=== PATIENT | male | born 1945 | race Caucasian/White ===

== ENCOUNTER 2018-05-26 09:34 | Inpatient (IN) | payer OTHER ==
--- NOTE | 2018-05-26 12:16 | R.PREADM ---
SCREENING DATE AND TIME 05/26/2018 10:11 (CDT) ANTICIPATED REHAB ADMISSION DATE 05/28/2018 REFERRING FACILITY [facility] REFERRAL DATE AND TIME 05/26/2018 10:11 (CDT) Previous Rehabilitation(s): No. ACUTE TORCH HEATER/DC ALE Gallardo [phone] REFERRING PHYSICIAN Nato Collins REHAB FACILITY [facility] CLINICAL LIAISON Edie Veloz PHYSICIAN REVIEWER Dr. Harmeet Byers M.D. MR# [id number] NAME LISS BURGESS AD[address]ESS [id number] [facility] [place] [address] DATE OF 1945 AGE 72 SSN# [id number] GENDER male MARITAL STATUS Single (Never ) RACE white ADMIT FROM 02 - [facility] PRE-HOSPITAL LIVING SETTING 01 - Home (private home/apt. board/care, assisted living, alf, transitional living) HOME TYPE AND DETAILS Type of home: single family house # of steps to enter the residence: 0 # of steps within the residence: 0 # of levels in the residence: 1 PRE-HOSPITAL LIVING WITH Family/Relatives FAMILY SUPPORT Yes PRIMARY FAMILY CONTACT NAME Den [place] PRIMARY FAMILY CONTACT PHONE PHONE PRIMARY FAMILY CONTACT ON ADM.? no IS PRIMARY FAMILY CONTACT AUTH. REP.? no 1ST EMERGENCY CONTACT [place] 1ST CONTACT PHONE PHONE 1ST CONTACT ON ADM. no IS 1ST CONTACT AUTH. REP.? no PHONE 2ND CONTACT ON ADM.? no PATIENT EMPLOYMENT STATUS Retired (for age) PATIENT EMPLOYER No Employer PAYOR INFORMATION: 1ST PAYOR NAME [employer] 1ST PAYOR PHONE 1ST PAYOR INJURY/ILLNESS DUE TO ACCIDENT? No ANOTHER GREEN PARTY RESPONSIBLE? No PRIMARY REHAB/ACUTE DIAGNOSIS: left basal ganglia posterior limb REHAB IMPAIRMENT CATEGORY (CAL): 01 Stroke (STR) MEETS 60% rule AFFECTED EXTREMITIES: RLE, and RUE PRIMARY DIAGNOSIS-RELATED SURGERIES: No surgeries related to the primary diagnosis were performed. COMORBID REHAB/ACUTE DIAGNOSES: - N/A hypertension CORONARY ARTERY DISEASE HISTORY OF CABG nicotine abuse COPD INTERVENTIONS: - Hypertension Fluid management Medications VS - COPD 02 sats Medications Nebulizers Oxygen Resp. therapy X-rays RISK FOR COMPLICATIONS: - Hypertension CVA Hypotension [place] TIA - COPD Acute Resp failure Pneumonia Resp. Arrest SUMMARY OF ACUTE HOSPITALIZATION: Pt. is a 72 yo Right-handed white male. On 05/23/2018 Pt. presented to [facility] with sudden onset of right-side weakness. On 05/23/2018 he was admitted to [facility] with diagnosis left basal ganglia posterior castañeda b. His impairment category is Stroke 01 - Right Body (Left Brain) (01.2). Pre-morbidly, Pt. was independent/mod-I in Communication, Social Cognition, Self-Care, Sphincter Cont rol, Transfers Control, and Locomotion; and he had good Sphincter Control. Currently, he has deficits of Communication, Social Cognition, Balance, Self-Care, Endurance, Safety Awareness, Transfers Control, and Locomotion. Pt. is now referred to [facility] for acute in-patient rehabilitation in order to maximize patient's functional independence in activities of daily living, strength, ROM, and mobi lity. Patient has realistic goal of being discharged at assistance level 6-Vi to reside at Home with Fam amena/Relatives. PAST MEDICAL HISTORY COPD CORONARY ARTERY DISEASE HISTORY OF CABG hypertension nicotine abuse MEDICATION ALLERGIES: No Known Drug Allergies (NKDA) ENVIRONMENTAL ALLERGIES: - Substance Allergies None Known - Other Allergies None Known CODE STATUS: Full code WEIGHT/HEIGHT/BMI: WEIGHT 204 lbs HEIGHT 5' 9" BMI 30.1 DIET: - Diet Type Regular - Diet - Solid Texture Mechanical Soft - Diet - Liquid Texture Regular - Tube Feed N/A REVIEW OF SYSTEMS: - Gen Alert and awake Lying in bed No apparent distress Oriented to: person, time, and place - CVS RRR VITAL SIGNS Temperature: 97.8 F SBP/DBP: 184/112 Pulse: 78 Resp: 15 Vital signs stable, afebrile CURRENT SPHINCTER CONTROL: Pre-hospital bladder status: continent # of bladder accidents in the last 7 days prior to screenin Pre-hospital bowel status: continent # of bowel accidents in the last 7 days prior to screenin Last Bowel Movement Date: 05/26/2018 DETAILED CURRENT FUNCTIONAL STATUS: - Bladder accident frequency: Ind - No accidents in the past 7 days - Bowel accident frequency: Ind - No accidents in the past 7 days - Walking score based on distance walked: 0(N/A) FUNCTIONAL STATUS: - Self-Care A. Eating Ind Carli B. Grooming Ind Carli C. Bathing Ind modA D. Dressing - Upper Ind Carli E. Dressing - Lower Ind modA F. Toileting Ind modA - Sphincter Control G: Bladder control Ind Ind H: Bowel control Ind Ind - Transfers Control I. Bed/Chair/Wheelchair Ind modA J. Toilet Ind modA K. Tub/Shower Ind modA - Locomotion L. Walk/Wheelchair (B) Ind Dep - Communication N. Comprehension (B) Ind Carli O. Expression (B) Ind sup - Social Cognition P. Social Interaction Ind sup Q. Problem Solving Ind sup R. Memory Ind Carli - Endurance Poor - Balance Poor - Safety Awareness Poor CURRENT FUNC. DEFICITS: Communication, Social Cognition, Balance, Self-Care, Endurance, Safety Awareness, Transfers Control, and Locomotion THERAPY NOTES FROM ACUTE CARE: Attached. SPECIAL NEEDS: - Safety Concerns Skin breakdown precautions needed due to skin breakdown risk PRECAUTIONS: - Weight Bearing Precaution WBAT right LE PATIENT NEEDS ACTIVE AND ONGOING THERAPEUTIC INTERVENTION OF MULTIPLE THERAPY DISCIPLINES, INCLUDING: - Occupational Therapy Evaluate and Treat. Cognitive Retraining. Visual Perceptual Training. - Speech Therapy Memory Strategies. Expressive Language Skills. Speech Intelligibility Training. Cognitive Training. R eceptive Language Skills. - Physical Therapy Evaluate and Treat. PATIENT NEEDS CLOSE MEDICAL SUPERVISION BY A REHABILITATION PHYSICIAN FOR: Bowel and Bladder Management Coordination of Treatment Team Medical and Co-Morbidity Management PATIENT REQUIRES 24X7 REHAB NURSING FOR MEDICAL AND FUNCTIONAL MGT. OF THE FOLLOWING DEFICITS: ADL's Ambulation Bowel and Bladder Management Cognition Communication Disease Management Medication Management Patient/Family Education Providing Safe Environment Transfers PATIENT REQUIRES INTENSIVE, COORDINATED INTERDISCIPLINARY APPROACH TO REHAB: Arranging Home Equipment/Services Discharge Planning Family Intervention/Training Cabin Worker/Case Management PATIENT REHAB POTENTIAL: Expected level of measurable improvement will be of a practical value to patient's functional capacit y or adaptations to impairments Has a viable Discharge Plan Medically appropriate; condition is sufficiently stable to participate in intensive rehab program Patient is able and expected to receive 3 hours of individualized therapy daily on at least 5 of ever y 7 days Patient's prognosis for significant practical improvement within a reasonable period of time appears Good DISCHARGE PLAN: - Estimated Length of Stay (days) 17. - Consensus on plan Discharge plan has been discussed with primary caregiver. Patient/Family is in agreement with the thea n. Primary caregiver is in agreement with the plan. - Patient/Family Goals Return home with assistance. - Planned Living Setting Upon Discharge Home, to live with Family/Relatives. RECOMMENDED CARE LEVEL: IRF RECOMMENDATION DETAILS: Recommended Admission to Comprehensive Rehabilitation Program to Increase Functional [place] SCREENER'S COMPLETENESS CONFIRMATION: - Screening Confirmation The patient data collection on this preadmission screening form is finished PHYSICIANS REVIEW AND ADMISSION DETERMINATION Admit - Based on my review of the Pre-Admission Screening results, in my medical judgment and experie nce, I concur with the findings and recommend admission to [facility], as this patient requires an IRF level of care. SIGNATURE PANEL: Clinical Liaison - [electronically] signed by Ayanna Perez on 05/26/2018 at 10:40 (CDT) Clinical Liaison - [electronically] signed by Edie Veloz on 05/26/2018 at 10:54 (CDT) Physician Reviewer - [electronically] signed by Dr. Harmeet Byers M.D. on 05/26/2018 at 12:16 (CDT )
[2018-05-26] MEDS: HYDROCODONE/APAP 5/325 MG TAB PO PRN ×2 (17:33→21:59)
[2018-05-26] MEDS ORDERED: ATORVASTATIN 40 MG TAB PO SCH (21:00)
[2018-05-26 23:59] LABS: Urine Appearance CLEAR; Urine Bilirubin NEGATIVE (NEG); Urine Blood NEGATIVE (NEG); Urine Color YELLOW; Urine Glucose NEGATIVE (NEG); Urine Protein NEGATIVE (NEG); Urine Specific Gravity <=1.005 (1.005-1.030); Urine Urobilinogen 0.2 mg/dL (0.2-1.0); Urine pH 7.5 (5.0-7.0)
[2018-05-27 01:14] LABS: Urine Bacteria <20 /HPF (NONE SEEN); Urine Culture Reflex Order NOT NEEDED; Urine RBC NONE SEEN /HPF (NONE SEEN)
[2018-05-27] MEDS: HYDROCODONE/APAP 5/325 MG TAB PO PRN ×4 (06:28→21:56)
[2018-05-27] MEDS: ENOXAPARIN 30 MG/0.3 ML SQ SCH (06:29)
[2018-05-27] MEDS: LEVOTHYROXINE SOD 0.112 MG TAB PO SCH (06:29)
[2018-05-27] MEDS ORDERED: LEVOTHYROXINE SOD 0.112 MG TAB PO SCH (06:30)
[2018-05-27 06:35] LABS: Absolute Lymphocytes (CBC) 0.7 K/uL (0.7-4.9); Absolute Monocytes 0.7 K/uL (0.1-1.3); Basophils % 0.9 % (0-1.3); Eosinophils % 2.3 % (0-4.4); Hematocrit 44.6 % (39.6-49.0); Lymphocytes % 10.2 % (15.3-44.8); MCH 34.2 pg (27.0-35.0); MCV 98.2 fL (80-100); MPV 8.4 fL (7.6-11.3); Monocytes % 10.6 % (3.3-12.3); RBC Red Blood Cell Count 4.54 M/uL (4.33-5.43)
[2018-05-27 07:03] LABS: Albumin 3.2 g/dL (3.4-5.0); Magnesium 2.3 mg/dL (1.8-2.4); Potassium 4.6 mmol/L (3.5-5.1); Prealbumin 18.8 mg/dL (20-40)
[2018-05-27] MEDS ORDERED: ASPIRIN 325 MG TAB PO SCH (08:00)
[2018-05-27] MEDS: AMLODIPINE 10 MG TAB PO SCH (08:15)
[2018-05-27] MEDS: CLOPIDOGREL 75 MG TABLET PO SCH (08:16)
[2018-05-27] MEDS: ASPIRIN EC 81 MG TAB PO SCH (08:16)
[2018-05-27] MEDS: NICOTINE 14 MG/PAT TD SCH (12:53)
--- NOTE | 2018-05-27 14:12 | FAST ---
SHIFT START DATE/TIME: 05/27/2018 07:00 (CDT) SHIFT END DATE/TIME: 05/27/2018 19:00 (CDT) NAME LISS BURGESS DATE OF : 1945 DATE OF ADMISSION: 05/26/2018 16:00 (CDT) PHONE: AGE: 72 N# [id number] GENDER: Male ENCOUNTER PHYSICIAN: Dr. Harmeet Byers M.D. 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 EATING: EATING - STEP 1: Does the patient require assistance when eating? Yes. EATING - STEP 2: Does the patient require the assistance of a helper? Yes. EATING - STEP 3: Does the patient perform half or more of the eating tasks? No. EATING - STEP 4: Does the patient require total assistance to eat, such as the helper holding the utensil and bringing all food and liquids to the mouth? Yes. EATING - SCORE: 1-DEP GROOMING: Activity did not occur on this shift GROOMING - SCORE: 0-UNK BATHING: Activity did not occur on this shift BATHING - SCORE: 0-UNK DRESSING - UPPER BODY: Activity did not occur on this shift ARTICLES SCORE Total number of steps: 0 DRESSING - UPPER BODY - SCORE: 0-UNK DRESSING - LOWER BODY: Activity did not occur on this shift ARTICLES SCORE Total number of steps: 0 DRESSING - LOWER BODY - SCORE: 0-UNK TOILETING: TOILETING - STEP 1: Does the patient require assistance with toileting? Yes. TOILETING - STEP 2: Does the patient require the assistance of a helper? Yes. TOILETING - STEP 3: How much assistance does the patient require from the helper? Hands-on assistance from the helper TOILETING - STEP 4: Of the 3 tasks: 1) Adjusting clothing prior to use, 2) Cleansing of perineal area, 3) Adjusting clot jany after use; How many tasks does the patient perform WITHOUT assistance of the helper? No tasks; h elper performs all three tasks TOILETING - SCORE: 1-DEP BLADDER MANAGEMENT: BLADDER MANAGEMENT - STEP 1: Does the patient control the bladder completely and intentionally without equipment or devices or med ications, and is always continent? No. BLADDER MANAGEMENT - STEP 2: Does the patient require the assistance of a helper? Yes. BLADDER MANAGEMENT - STEP 3: How much assistance does the patient require from the helper? Patient requires contact assistance fro m the helper BLADDER MANAGEMENT - STEP 4: How much contact assistance does the patient require from the helper? Patient requires maximal assist ance, and only performs 25% to 49% of bladder management tasks BLADDER MANAGEMENT - SCORE: 2-MAX BLADDER MANAGEMENT - FREQUENCY OF ACCIDENTS: BLADDER MANAGEMENT(FA) - STEP 1: How many accidents has the patient had during the current shift? 0 BOWEL MANAGEMENT: Activity did not occur on this shift BOWEL MANAGEMENT - SCORE: 7-IND BOWEL MANAGEMENT - FREQUENCY OF ACCIDENTS: BOWEL MANAGEMENT(FA) - STEP 1: How many accidents has the patient had during the current shift? 0 TRANSFERS: BED, CHAIR, WHEELCHAIR: TRANSFERS: BED, CHAIR, WHEELCHAIR - STEP 1: Does the patient require assistance with bed, chair, or wheelchair transfers? Yes. TRANSFERS: BED, CHAIR, WHEELCHAIR - STEP 2: Does the patient require the assistance of a helper? Yes. TRANSFERS: BED, CHAIR, WHEELCHAIR - STEP 3: How much assistance does the patient require from the helper? Steadying/guiding assistance TRANSFERS: BED, CHAIR, WHEELCHAIR - SCORE: 4-MIN TRANSFERS: TOILET: Activity did not occur on this shift TRANSFERS: TOILET - SCORE: 0-UNK TRANSFERS: SHOWER: Activity did not occur on this shift TRANSFERS: SHOWER - SCORE: 0-UNK TRANSFERS: TUB: Activity did not occur on this shift TRANSFERS: TUB - SCORE: 0-UNK LOCOMOTION: WALK: Activity did not occur on this shift LOCOMOTION: WALK - SCORE: 0-UNK LOCOMOTION: WHEELCHAIR: Activity did not occur on this shift LOCOMOTION: WHEELCHAIR - SCORE: 0-UNK COMPREHENSION: COMPREHENSION: TYPE: Both COMPREHENSION - STEP 1: Does the patient require help to understand complex and abstract ideas (such as current events, finan alonso, discharge planning, medical issues, relationships, etc)? Yes. COMPREHENSION - STEP 2: Does the patient require help to understand questions or statements about basic needs or ideas (such as hunger, thirst, sleep, safety, daily schedule, room location, or discomfort) half or more of the t cj? No. COMPREHENSION - STEP 3: How often does the patient need help to understand directions and conversation about basic needs? 10% - 24% of the time COMPREHENSION - SCORE: 4-MIN EXPRESSION EXPRESSION: TYPE: Both EXPRESSION - STEP 1: Does the patient require help expressing complex and abstract ideas (such as current events, finances , discharge planning, medical issues, relationships, etc)? Yes. EXPRESSION - STEP 2: Does the patient require help to express basic necessities or ideas (such as hunger, thirst, sleep, s afety, daily schedule, room location, or discomfort) half or more of the time? No. EXPRESSION - STEP 3: How often does the patient need help to express directions and conversation about basic needs? 10-24% of the time EXPRESSION - SCORE: 4-MIN SOCIAL INTERACTION: SOCIAL INTERACTION - STEP 1: Does the patient require a helper to interact with others in social and therapeutic situations? No. SOCIAL INTERACTION - STEP 2: Does the patient need extra time in social situations, OR does s/he interact with staff, other patien ts, and family members ONLY in structured environments, OR does s/he require medication for social in teraction? Yes, patient needs extra time SOCIAL INTERACTION - SCORE: 6-KAMERON PROBLEM SOLVING: PROBLEM SOLVING - STEP 1: Does the patient need help to solve complex problems such as managing a checking account or confronti ng interpersonal problems? Yes. PROBLEM SOLVING - STEP 2: Does the patient solve basic routine problems half or more of the time? Yes. PROBLEM SOLVING - STEP 3: How often does the patient need help to solve basic routine problems? 10%-24% of the time PROBLEM SOLVING - SCORE: 4-MIN MEMORY: MEMORY - STEP 1: Does the patient need help to remember frequently encountered people, daily routines, and executing r equests? No. MEMORY - STEP 2: Does the patient have slight difficulty recognizing frequently encountered people, daily routines, or executing requests without the need for repetition or using self-initiated or environmental cues to remember? Yes. MEMORY - SCORE: 6-KAMERON SIGNATURE PANEL: The following modified sections: Eating - Score, Grooming - Score, Bathing - Score, Dressing - Upper Body - Score, Dressing - Lower Body - Score, Toileting - Score, Bladder Management - Score, Bowel Man agement - Score, Transfers: Bed, Chair, Wheelchair - Score, Transfers: Toilet - Score, Transfers: Qian wer - Score, Transfers: Tub - Score, Locomotion: Walk - Score, Locomotion: Wheelchair - Score, Expres garret - Score, Social Interaction - Score, Problem Solving - Score, Memory - Score, Comprehension - Sc ore were [electronically] signed by Kisha Meyer C.N.A. on Sat May 27 2018 14:11:33 T-0500 (Centra l Daylight Time)
--- NOTE | 2018-05-27 18:26 | PAPE ---
PATIENT: [facility] MR# [id number] REFERRING DOCTOR Nato Collins EVALUATION DATE AND TIME 05/27/2018 18:24 (CDT) NAME LISS BURGESS DATE OF 1945 AGE 72 PHONE SSN# [id number] GENDER male EVALUATING PHYSICIAN Dr. Harmeet Byers M.D. ADMISSION DIAGNOSIS: left basal ganglia posterior limb SECONDARY/COMORBID DIAGNOSES TIERED: - N/A hypertension CORONARY ARTERY DISEASE HISTORY OF CABG nicotine abuse COPD POST-ADMISSION FUNCTIONAL/MEDICAL STATUS: - Bladder Same accident frequency: Ind - No accidents in the past 7 days - Bowel Same accident frequency: Ind - No accidents in the past 7 days - Walking Same score based on distance walked: 0(N/A) STATUS CHANGE EVALUATION: No change in Functional or Medical Status is identified compared with Pre-Admission screening. PATIENT NEEDS CLOSE MEDICAL SUPERVISION BY A REHABILITATION PHYSICIAN FOR: Bowel and Bladder Management Coordination of Treatment Team Medical and Co-Morbidity Management PATIENT REQUIRES 24X7 REHAB NURSING FOR MEDICAL AND FUNCTIONAL MGT. OF THE FOLLOWING DEFICITS: ADL's Ambulation Bowel and Bladder Management Cognition Communication Disease Management Medication Management Patient/Family Education Providing Safe Environment Transfers PATIENT REQUIRES INTENSIVE, COORDINATED INTERDISCIPLINARY APPROACH TO REHAB: Arranging Home Equipment/Services Discharge Planning Family Intervention/Training Turfgrass Technician/Case Management LIST OF IDENTIFIED AND POTENTIAL PROBLEMS: Alteration in leisure activities Bladder, Incontinence Blood Pressure, Hypertension/hypotension Issues Bowel, Incontinence Infection, Actual or Potential Mobility Impaired Pain, Alteration in Comfort Self Care Deficit Skin Integrity, Actual or Potential Urinary Tract Infection (UTI), Actual or Potential RISK FOR COMPLICATIONS - Hypertension CVA. Hypotension. WI. TIA. - COPD Acute Resp failure. Pneumonia. Resp. Arrest. INTERVENTIONS - Hypertension - COPD 02 sats. Medications. Nebulizers. Oxygen. Resp. therapy. X-rays. PATIENT COULD BE AT RISK FOR COMPLICATIONS FROM ADVERSE MEDICAL CONDITIONS DUE TO HIS/HER COMORBIDITI ES AND THE RIGORS OF THE INTENSIVE REHABILLITATION PROGRAM. METHODS OR INTERVENTIONS TO AVOID COMPLIC ATIONS INCLUDE: - Bleeding Stroke patients assessed for lethargy or change in status. - Infection Clinical staff to assess and manage the signs and symptoms of infection including fever, redness, war mth, etc. - Urinary Tract Infection - Aspiration Clinical staff will assess and manage coughing, drooling, congestion. - Falls Patient will be evaluated for Fall Precautions and will be placed on Fall Precautions as indicated pe r protocol. - Skin Breakdown Nursing will assess skin daily using assessment tool and will place on Skin Breakdown Precautions as indicated per protocol. - Pain Clinical staff may employ non-medication methods such as massage, distraction, decrease stimulus, etc . as needed. Clinical staff will assess patient's pain level every shift per protocol to assess and e nsure pain management effectiveness. Medications will be given and the pain level re-assessed. PRELIMINARY PLAN OF CARE: - Physical Therapy Patient needs Physical Therapy for a daily minimum of 1.5 hours at least 5 out of 7 days, to improve: Mobility, Strengthening, Transfers, Stretching, ROM, Endurance, Ability to manage stairs, Gait, and Balance. - Speech Therapy Patient needs Speech Therapy for a daily minimum of 0.5 hours at least 5 out of 7 days, to improve: S wallowing, Cognition, Language Skills, and Compensatory Strategies. - Rehabilitation Nursing Patient requires 24x7 Rehabilitation Nursing for: Pain Issues, Identifying and preventing risk factor s, Monitoring and reporting current medical conditions, Assisting with ambulation and transfer, Finn ting with all ADL-s, Teaching patients about disease process and medications, Family teaching, Provid ing safe environment, Bowel and Bladder Issues, Skin Integrity, and Medication Management. Patient needs Turfgrass Technician and/or Case Management for: Discharge Planning, Arranging Home Equipmen t or Services, and Family Interventions. - Dietary and Nutrition Services Patient needs Dietary and Nutrition Services for: Adequate Nutrition, Nutritional Supplements, and Nu tritional Education. - Occupational Therapy Patient needs Occupational Therapy for a daily minimum of 1.5 hours at least 5 out of 7 days, to impr ove Activities of Daily Living, including: Eating, Grooming, Bathing, Dressing, Toileting, Toilet Tra nsfers, Community Reintegration, Higher functional activities, Adaptive Equipment, Splinting, Househo ld Tasks, and Other activities as determined. POTENTIAL FUNCTIONAL GOALS FOR PATIENT TO ACHIEVE BY DISCHARGE: - Safety Precaution Patient will remain free from falls or injury at time of discharge. - Bed Mobility Patient will perform bed mobility at 4-Carli level of assistance. - Transfers Patient will complete transfers from bed to chair at 4-Carli level of assistance. - Mobility Patient will ambulate 150 ft with 4-Carli level of assistance with RW. PATIENT REHAB POTENTIAL Expected level of measurable improvement will be of a practical value to patient's functional capacit y or adaptations to impairments Has a viable Discharge Plan Medically appropriate; condition is sufficiently stable to participate in intensive rehab program Patient is able and expected to receive 3 hours of individualized therapy daily on at least 5 of ever y 7 days Patient's prognosis for significant practical improvement within a reasonable period of time appears Good DISCHARGE PLAN: - Estimated Length of Stay (days) 17. - Consensus on plan Discharge plan has been discussed with primary caregiver. Patient/Family is in agreement with the thea n. Primary caregiver is in agreement with the plan. - Patient/Family Goals Return home with assistance. - Planned Living Setting Upon Discharge Home, to live with Family/Relatives. CONCLUSION ON REHABILITATION NECESSITY: I have evaluated patient's pre-admission functional status and, comparing it to the patient's post-ad mission functional status now, I conclude that the pre-admission assessment was accurate. Patient's c ondition on admission supports the medical necessity of admission to IRF. It is safe to proceed with patient's therapy program. SIGNATURE PANEL: (CDT)
--- NOTE | 2018-05-27 18:26 | R.HP ---
FACILITY: [facility] ENCOUNTER DATE AND TIME: 05/27/2018 18:17 (CDT) MR#: [id number] NAME LISS BURGESS ADDRESS: [address] [place] [address]: [place] [id number] PHONE: DATE OF : 1945 AGE: 72 SSN# [id number] GENDER: Male DEXTERITY Right-handed MARITAL STATUS Single (Never ) RACE White PRE-HOSPITAL LIVING SETTING 01 - Home (private home/apt. board/care, assisted living, long-term, transitional living) PRE-HOSPITAL LIVING WITH Family/Relatives ENCOUNTER PHYSICIAN: Dr. Harmeet Byers M.D. REFERRING DOCTOR: Nato Collins DATE OF ADMISSION: 05/26/2018 16:00 (CDT) REFERRING FACILITY [facility] HOME TYPE AND DETAILS: Type of home: single family house # of steps to enter the residence: 0 # of steps within the residence: 0 # of levels in the residence: 1 ADMISSION DIAGNOSIS: left basal ganglia posterior limb PRIMARY DIAGNOSIS-RELATED SURGERIES: No surgeries related to the primary diagnosis were performed. SECONDARY/COMORBID DIAGNOSES (TIERED): - N/A hypertension CORONARY ARTERY DISEASE HISTORY OF CABG nicotine abuse COPD HISTORY OF PRESENT ILLNESS (HPI): Pt. is a 72 yo Right-handed white male. On 05/23/2018 Pt. presented to [facility] with sudden onset of right-side weakness. On 05/23/2018 he was admitted to [facility] with diagnosis left basal ganglia posterior castañeda b. His impairment category is Stroke 01 - Right Body (Left Brain) (01.2). Pre-morbidly, Pt. was independent/mod-I in Communication, Social Cognition, Self-Care, Sphincter Cont rol, Transfers Control, and Locomotion; and he had good Sphincter Control. Currently, he has deficits of Communication, Social Cognition, Balance, Self-Care, Endurance, Safety Awareness, Transfers Control, and Locomotion. Pt. is now referred to [facility] for acute in-patient rehabilitation in order to maximize patient's functional independence in activities of daily living, strength, ROM, and mobi lity. Patient has realistic goal of being discharged at assistance level 6-Vi to reside at Home with Fam amena/Relatives. MEDICATION ALLERGIES: No Known Drug Allergies (NKDA) ENVIRONMENTAL ALLERGIES: - Substance Allergies None Known - Other Allergies None Known PAST MEDICAL HISTORY: COPD CORONARY ARTERY DISEASE HISTORY OF CABG hypertension nicotine abuse FAMILY HISTORY: Family history is not contributory. SOCIAL HISTORY: - Home Living Family/Relatives REVIEW OF SYSTEMS: - Gen No Chills Fatigue No Fever - Eyes No Double Vision No itchiness - ENMT No Difficulty Swallowing - CVS No Chest Discomfort No Chest Pain Fatigue No Weight Gain - Resp No Cough No Shortness of Breath - GI Continent No Abdominal Pain No Constipation No Diarrhea - Continent No Kidney Pain No Painful Urination No Urinary Urgency - MSK No Joint Pain No Muscle Cramps Stiffness - Skin No Itching No Rash No Suspicious Lesions - Neuro Coordination Difficulty No Memory Loss No Seizures Weakness - Psych No Anxiety No Depression No HIV Exposure No Persistent Infections No Seasonal Allergies - Endo No Cold/Heat Intolerance No Excessive Hunger No Excessive Thirst No Excessive Urination PHYSICAL EXAM - Gen Alert and awake Lying in bed No apparent distress Oriented to: person, time, and place - Skin No breakdowns Right facial numbness and mild weakness with slurred speech. Cleared for thin and thick liquids - Eyes No abnormalities - ENMT No abnormalities - Neck No abnormalities - CVS RRR - Chest No abnormalities - Resp Clear to auscultation - Abd + bowel sounds - GI Soft Deferred - No abnormalities - Ext No significant edema - MSK 3-4/5 weakness in right upper and 4+/5 in right lower extremity - Neuro 3-4/5 weakness in the right upper and lower extremities. Decrease to touch and temperature in right u pper and lower extremities. - Psych No abnormalities VITAL SIGNS Temperature: 97.8 F SBP/DBP: 143/83 Pulse: 82 Resp: 16 NURSING: - Shower allowing shower - Bladder care per protocol - Skin care per protocol PRECAUTIONS: - Weight Bearing Precaution WBAT right LE ACTIVITIES OOB only with supervision FUNCTIONAL STATUS: - Self-Care A. Eating Ind Carli B. Grooming Ind Carli C. Bathing Ind modA D. Dressing - Upper Ind Carli E. Dressing - Lower Ind modA F. Toileting Ind modA - Sphincter Control G: Bladder control Ind Ind H: Bowel control Ind Ind - Transfers Control I. Bed/Chair/Wheelchair Ind modA J. Toilet Ind modA K. Tub/Shower Ind modA - Locomotion L. Walk/Wheelchair (B) Ind Dep - Communication N. Comprehension (B) Ind Carli O. Expression (B) Ind sup - Social Cognition P. Social Interaction Ind sup Q. Problem Solving Ind sup R. Memory Ind Carli - Endurance Poor - Balance Poor - Safety Awareness Poor CURRENT FUNC. DEFICITS: Communication, Social Cognition, Balance, Self-Care, Endurance, Safety Awareness, Transfers Control, and Locomotion ASSESSMENT: Pt. is a 72 yo Right-handed white male.On 05/23/2018 Pt. presented to [facility] with sudde n onset of right-side weakness.On 05/23/2018 he was admitted to [facility] with diagnosis l eft basal ganglia posterior limb.His impairment category is Stroke 01 - Right Body (Left Brain) (01. 2).Pre-morbidly, Pt. was independent/mod-I in Communication, Social Cognition, Self-Care, Sphincter C ontrol, Transfers Control, and Locomotion; and he had good Sphincter Control.Currently, he has defici ts of Communication, Social Cognition, Balance, Self-Care, Endurance, Safety Awareness, Transfers Con trol, and Locomotion.Pt. is now referred to [facility] for acute in-patient re habilitation in order to maximize patient's functional independence in activities of daily living, st rength, ROM, and mobility.- Rehab Goal Patient has realistic goal of being discharged at assistance level 6-Vi to reside at Home with Fam amena/Relatives. REHAB PLAN: for Dementia, TBI, Stroke, or others - Physical Therapy Gait dysfunction - to improve, our physical therapists will perform initial evaluation of pt's status upon admission and devise an individualized program for Gait Training, and Wheel Chair mobility Inability to transfer - to improve, our physical therapists will perform initial evaluation of pt's s tatus upon admission and devise an individualized program for Bed mobility Need for home safety evaluation - to improve, our physical therapists will perform initial evaluation of pt's status upon admission and devise an individualized program for Home Evaluation Need in caregiver upon discharge - to improve, our physical therapists will perform initial evaluatio n of pt's status upon admission and devise an individualized program for Caregiver Training New precaution - to improve, our physical therapists will perform initial evaluation of pt's status u leobardo admission and devise an individualized program for Patient precaution education Edema - to improve, our physical therapists will perform initial evaluation of pt's status upon admi ssion and devise an individualized program for Elevation Training, and Lymphedema Therapy Poor balance - to improve, our physical therapists will perform initial evaluation of pt's status upo n admission and devise an individualized program for Balance Training Poor endurance - to improve, our physical therapists will perform initial evaluation of pt's status u leobardo admission and devise an individualized program for Endurance Training Weakness - to improve, our physical therapists will perform initial evaluation of pt's status upon ad mission and devise an individualized program for Aquatic Therapy, Neuromuscular Reeducation, and Stre ngthening Achieving independence - to improve, our physical therapists will perform initial evaluation of pt's status upon admission and devise an individualized program for Community Reintegration Activities - Occupational Therapy ADL deficits - to improve, our occupation therapists will perform initial evaluation of pt's status u leobardo admission and devise an individualized program for Bathing, Bed mobility, Community Reintegration , Cooking, Dressing, Eating, Fine Motor Skills, Grooming, Homemaking, Kitchen Mobility, Laundry, Alisha ent Education, Safety Awareness, Splinting - Positioning, Transfers(Toilet, Tub, Shower), and Wheel C hair Management Cognitive deficits - to improve, our occupation therapists will perform initial evaluation of pt's st atus upon admission and devise an individualized program for Cognition - orientation Need for post acute care nurse - to improve, our occupation therapists will perform initial evaluation of pt's s tatus upon admission and devise an individualized program for Caregiver Training Weakness - to improve, our occupation therapists will perform initial evaluation of pt's status upon admission and devise an individualized program for Aquatic Therapy, Balance, Endurance, UE ROM, and U E strengthening MEDICAL PLAN: - Diet Type Start Regular - Diet - Liquid Texture Start Regular - Tube Feed Start N/A - Bladder care per protocol - Weight Bearing Precaution WBAT right LE - Skin care per protocol - Diet - Solid Texture Start Regular Start Mechanical Soft - Shower shower DISCHARGE PLAN: - Estimated Length of Stay (days) 17. - Consensus on plan Discharge plan has been discussed with primary caregiver. Patient/Family is in agreement with the thea n. Primary caregiver is in agreement with the plan. - Patient/Family Goals Return home with assistance. - Planned Living Setting Upon Discharge Home, to live with Family/Relatives. SIGNATURE PANEL: (CDT)
[2018-05-27] MEDS: ENSURE HIGH PROTEIN 237 ML CAN PO SCH (20:47)
[2018-05-27] MEDS: ATORVASTATIN 40 MG TAB PO SCH (20:47)
[2018-05-27] MEDS: DOCUSATE NA/SENNA CONC 1 TAB PO SCH (20:47)
--- NOTE | 2018-05-28 02:30 | FAST ---
SHIFT START DATE/TIME: 05/27/2018 19:00 (CDT) SHIFT END DATE/TIME: 05/28/2018 07:00 (CDT) NAME LISS BURGESS DATE OF : 1945 DATE OF ADMISSION: 05/26/2018 16:00 (CDT) PHONE: AGE: 72 N# [id number] GENDER: Male ENCOUNTER PHYSICIAN: Dr. Harmeet Byers M.D. 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 EATING: Activity did not occur on this shift EATING - SCORE: 0-UNK GROOMING: Activity did not occur on this shift GROOMING - SCORE: 0-UNK BATHING: Activity did not occur on this shift BATHING - SCORE: 0-UNK DRESSING - UPPER BODY: Patient is not dressing in public clothing ARTICLES SCORE Total number of steps: 0 DRESSING - UPPER BODY - SCORE: 0-UNK DRESSING - LOWER BODY: Patient is not dressing in public clothing ARTICLES SCORE Total number of steps: 0 DRESSING - LOWER BODY - SCORE: 0-UNK TOILETING: TOILETING - STEP 1: Does the patient require assistance with toileting? Yes. TOILETING - STEP 2: Does the patient require the assistance of a helper? Yes. TOILETING - STEP 3: How much assistance does the patient require from the helper? Hands-on assistance from the helper TOILETING - STEP 4: Of the 3 tasks: 1) Adjusting clothing prior to use, 2) Cleansing of perineal area, 3) Adjusting clot jany after use; How many tasks does the patient perform WITHOUT assistance of the helper? No tasks; h elper performs all three tasks TOILETING - SCORE: 1-DEP BLADDER MANAGEMENT: [place] removes incontinent device (Depends, pull ups, etc.); cleans the patient after accident / inco ntinent episode; and, applies new incontinent device. BLADDER MANAGEMENT - SCORE: 1-DEP BOWEL MANAGEMENT: Activity did not occur on this shift BOWEL MANAGEMENT - SCORE: 7-IND TRANSFERS: BED, CHAIR, WHEELCHAIR: Activity did not occur on this shift TRANSFERS: BED, CHAIR, WHEELCHAIR - SCORE: 0-UNK TRANSFERS: TOILET: Activity did not occur on this shift TRANSFERS: TOILET - SCORE: 0-UNK TRANSFERS: SHOWER: Activity did not occur on this shift TRANSFERS: SHOWER - SCORE: 0-UNK TRANSFERS: TUB: Activity did not occur on this shift TRANSFERS: TUB - SCORE: 0-UNK LOCOMOTION: WALK: Activity did not occur on this shift LOCOMOTION: WALK - SCORE: 0-UNK LOCOMOTION: WHEELCHAIR: Activity did not occur on this shift LOCOMOTION: WHEELCHAIR - SCORE: 0-UNK COMPREHENSION: COMPREHENSION: TYPE: Both COMPREHENSION - STEP 1: Does the patient require help to understand complex and abstract ideas (such as current events, finan alonso, discharge planning, medical issues, relationships, etc)? No. COMPREHENSION - STEP 2: Does the patient need extra time, require an assistive device (such as glasses for visual comprehensi on or a hearing aid for auditory comprehension) or does s/he have mild difficulty understanding compl ex and abstract information? Yes. COMPREHENSION - SCORE: 6-KAMERON EXPRESSION EXPRESSION: TYPE: Both EXPRESSION - STEP 1: Does the patient require help expressing complex and abstract ideas (such as current events, finances , discharge planning, medical issues, relationships, etc)? No. EXPRESSION - STEP 2: Does the patient need extra time, require an assistive device (such as augmentive communication syste m or a communication board), OR does s/he have mild difficulty expressing complex and abstract ideas (including mild dysarthria or mild word-find problems)? Yes. EXPRESSION - SCORE: 6-KAMERON SOCIAL INTERACTION: SOCIAL INTERACTION - STEP 1: Does the patient require a helper to interact with others in social and therapeutic situations? No. SOCIAL INTERACTION - STEP 2: Does the patient need extra time in social situations, OR does s/he interact with staff, other patien ts, and family members ONLY in structured environments, OR does s/he require medication for social in teraction? Yes, patient needs extra time SOCIAL INTERACTION - SCORE: 6-KAMERON PROBLEM SOLVING: PROBLEM SOLVING - STEP 1: Does the patient need help to solve complex problems such as managing a checking account or confronti ng interpersonal problems? No. PROBLEM SOLVING - STEP 2: Does the patient require extra time to make decisions or solve problems, OR does s/he have slight dif ficulty reading, initiating, or self-correcting in unfamiliar situations? Yes, patient needs extra ti me. PROBLEM SOLVING - SCORE: 6-KAMERON MEMORY: MEMORY - STEP 1: Does the patient need help to remember frequently encountered people, daily routines, and executing r equests? No. MEMORY - STEP 2: Does the patient have slight difficulty recognizing frequently encountered people, daily routines, or executing requests without the need for repetition or using self-initiated or environmental cues to remember? Yes. MEMORY - SCORE: 6-KAMERON SIGNATURE PANEL: The following modified sections: Eating - Score, Grooming - Score, Dressing - Upper Body - Score, Kash ssing - Lower Body - Score, Toileting - Score, Bladder Management - Score, Bowel Management - Score, Transfers: Bed, Chair, Wheelchair - Score, Transfers: Toilet - Score, Transfers: Shower - Score, Agosto sfers: Tub - Score, Locomotion: Walk - Score, Locomotion: Wheelchair - Score, Comprehension - Score, Expression - Score, Social Interaction - Score, Problem Solving - Score, Memory - Score were [electro nically] signed by Susie Pate CNA on Sun May 28 2018 02:15:50 GMT-0500 (Central Daylight Time)
[2018-05-28] MEDS: LEVOTHYROXINE SOD 0.112 MG TAB PO SCH (05:08)
[2018-05-28] MEDS: ENOXAPARIN 30 MG/0.3 ML SQ SCH (09:12)
[2018-05-28] MEDS: CLOPIDOGREL 75 MG TABLET PO SCH (09:12)
[2018-05-28] MEDS: ASPIRIN EC 81 MG TAB PO SCH (09:12)
[2018-05-28] MEDS: HYDROCODONE/APAP 5/325 MG TAB PO PRN ×3 (09:13→21:19)
[2018-05-28] MEDS: AMLODIPINE 10 MG TAB PO SCH (09:13)
[2018-05-28] MEDS: ENSURE HIGH PROTEIN 237 ML CAN PO SCH ×2 (09:14→20:00)
[2018-05-28] MEDS: NICOTINE 14 MG/PAT TD SCH (10:20)
[2018-05-28] MEDS ORDERED: BISACODYL 10 MG RECTAL SUPP PR PRN (12:30)
--- NOTE | 2018-05-28 13:49 | FAST ---
SHIFT START DATE/TIME: 05/28/2018 07:00 (CDT) SHIFT END DATE/TIME: 05/28/2018 19:00 (CDT) NAME LISS BURGESS DATE OF : 1945 DATE OF ADMISSION: 05/26/2018 16:00 (CDT) PHONE: AGE: 72 N# [id number] GENDER: Male ENCOUNTER PHYSICIAN: Dr. Harmeet Byers M.D. 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 EATING: EATING - STEP 1: Does the patient require assistance when eating? Yes. EATING - STEP 2: Does the patient require the assistance of a helper? Yes. EATING - STEP 3: Does the patient perform half or more of the eating tasks? Yes. EATING - STEP 4: Does the patient need only supervision, cuing, coaxing OR help to apply an orthosis OR help to cut fo od, open containers, pour liquids, or butter bread? Yes. EATING - SCORE: 5-SUP GROOMING: Activity did not occur on this shift GROOMING - SCORE: 0-UNK BATHING: Activity did not occur on this shift BATHING - SCORE: 0-UNK DRESSING - UPPER BODY: Activity did not occur on this shift ARTICLES SCORE Total number of steps: 0 DRESSING - UPPER BODY - SCORE: 0-UNK DRESSING - LOWER BODY: Activity did not occur on this shift ARTICLES SCORE Total number of steps: 0 DRESSING - LOWER BODY - SCORE: 0-UNK TOILETING: TOILETING - STEP 1: Does the patient require assistance with toileting? Yes. TOILETING - STEP 2: Does the patient require the assistance of a helper? Yes. TOILETING - STEP 3: How much assistance does the patient require from the helper? Hands-on assistance from the helper TOILETING - STEP 4: Of the 3 tasks: 1) Adjusting clothing prior to use, 2) Cleansing of perineal area, 3) Adjusting clot jany after use; How many tasks does the patient perform WITHOUT assistance of the helper? No tasks; h elper performs all three tasks TOILETING - SCORE: 1-DEP BLADDER MANAGEMENT: Patient spills the urinal and [place] changes patient's linen or clothing. BLADDER MANAGEMENT - SCORE: 1-DEP BLADDER MANAGEMENT - FREQUENCY OF ACCIDENTS: BLADDER MANAGEMENT(FA) - STEP 1: How many accidents has the patient had during the current shift? 1 BOWEL MANAGEMENT: Activity did not occur on this shift BOWEL MANAGEMENT - SCORE: 7-IND BOWEL MANAGEMENT - FREQUENCY OF ACCIDENTS: BOWEL MANAGEMENT(FA) - STEP 1: How many accidents has the patient had during the current shift? 0 TRANSFERS: BED, CHAIR, WHEELCHAIR: TRANSFERS: BED, CHAIR, WHEELCHAIR - STEP 1: Does the patient require assistance with bed, chair, or wheelchair transfers? Yes. TRANSFERS: BED, CHAIR, WHEELCHAIR - STEP 2: Does the patient require the assistance of a helper? Yes. TRANSFERS: BED, CHAIR, WHEELCHAIR - STEP 3: How much assistance does the patient require from the helper? Lifting of the patient TRANSFERS: BED, CHAIR, WHEELCHAIR - STEP 4: Does the helper lift the patient ONLY up? ONLY down? Up AND Down? Up AND Down. TRANSFERS: BED, CHAIR, WHEELCHAIR - SCORE: 2-MAX TRANSFERS: TOILET: Activity did not occur on this shift TRANSFERS: TOILET - SCORE: 0-UNK TRANSFERS: SHOWER: Activity did not occur on this shift TRANSFERS: SHOWER - SCORE: 0-UNK TRANSFERS: TUB: Activity did not occur on this shift TRANSFERS: TUB - SCORE: 0-UNK LOCOMOTION: WALK: Activity did not occur on this shift LOCOMOTION: WALK - SCORE: 0-UNK LOCOMOTION: WHEELCHAIR: Activity did not occur on this shift LOCOMOTION: WHEELCHAIR - SCORE: 0-UNK COMPREHENSION: COMPREHENSION: TYPE: Both COMPREHENSION - STEP 1: Does the patient require help to understand complex and abstract ideas (such as current events, finan alonso, discharge planning, medical issues, relationships, etc)? No. COMPREHENSION - STEP 2: Does the patient need extra time, require an assistive device (such as glasses for visual comprehensi on or a hearing aid for auditory comprehension) or does s/he have mild difficulty understanding compl ex and abstract information? Yes. COMPREHENSION - SCORE: 6-KAMERON EXPRESSION EXPRESSION: TYPE: Both EXPRESSION - STEP 1: Does the patient require help expressing complex and abstract ideas (such as current events, finances , discharge planning, medical issues, relationships, etc)? No. EXPRESSION - STEP 2: Does the patient need extra time, require an assistive device (such as augmentive communication syste m or a communication board), OR does s/he have mild difficulty expressing complex and abstract ideas (including mild dysarthria or mild word-find problems)? Yes. EXPRESSION - SCORE: 6-KAMERON SOCIAL INTERACTION: SOCIAL INTERACTION - STEP 1: Does the patient require a helper to interact with others in social and therapeutic situations? No. SOCIAL INTERACTION - STEP 2: Does the patient need extra time in social situations, OR does s/he interact with staff, other patien ts, and family members ONLY in structured environments, OR does s/he require medication for social in teraction? Yes, patient needs extra time SOCIAL INTERACTION - SCORE: 6-KAMERON PROBLEM SOLVING: PROBLEM SOLVING - STEP 1: Does the patient need help to solve complex problems such as managing a checking account or confronti ng interpersonal problems? No. PROBLEM SOLVING - STEP 2: Does the patient require extra time to make decisions or solve problems, OR does s/he have slight dif ficulty reading, initiating, or self-correcting in unfamiliar situations? Yes, patient needs extra ti me. PROBLEM SOLVING - SCORE: 6-KAMERON MEMORY: MEMORY - STEP 1: Does the patient need help to remember frequently encountered people, daily routines, and executing r equests? No. MEMORY - STEP 2: Does the patient have slight difficulty recognizing frequently encountered people, daily routines, or executing requests without the need for repetition or using self-initiated or environmental cues to remember? Yes. MEMORY - SCORE: 6-KAMERON SIGNATURE PANEL: The following modified sections: Eating - Score, Grooming - Score, Bathing - Score, Dressing - Upper Body - Score, Dressing - Lower Body - Score, Toileting - Score, Bladder Management - Score, Bowel Man agement - Score, Transfers: Bed, Chair, Wheelchair - Score, Transfers: Toilet - Score, Transfers: Qian wer - Score, Transfers: Tub - Score, Locomotion: Walk - Score, Locomotion: Wheelchair - Score, Compre hension - Score, Expression - Score, Social Interaction - Score, Problem Solving - Score, Memory - Sc ore were [electronically] signed by Kisha Meyer C.N.A. on TueMay 28 2018 13:48:13 T-0500 (Centra l Daylight Time)
[2018-05-28] MEDS: LIDOCAINE 5% PATCH TOP SCH (14:00)
[2018-05-28] MEDS: MAGNESIUM HYDROXIDE 8% 30 ML PO PRN (14:50)
[2018-05-28] MEDS: DOCUSATE NA/SENNA CONC 1 TAB PO SCH (20:00)
[2018-05-28] MEDS: ATORVASTATIN 40 MG TAB PO SCH (20:00)
--- NOTE | 2018-05-29 02:04 | FAST ---
SHIFT START DATE/TIME: 05/28/2018 19:00 (CDT) SHIFT END DATE/TIME: 05/29/2018 07:00 (CDT) NAME LISS BURGESS DATE OF : 1945 DATE OF ADMISSION: 05/26/2018 16:00 (CDT) PHONE: AGE: 72 N# [id number] GENDER: Male ENCOUNTER PHYSICIAN: Dr. Harmeet Byers M.D. 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 EATING: Activity did not occur on this shift EATING - SCORE: 0-UNK GROOMING: Activity did not occur on this shift GROOMING - SCORE: 0-UNK BATHING: Activity did not occur on this shift BATHING - SCORE: 0-UNK DRESSING - UPPER BODY: Patient is not dressing in public clothing ARTICLES SCORE Total number of steps: 0 DRESSING - UPPER BODY - SCORE: 0-UNK DRESSING - LOWER BODY: Patient is not dressing in public clothing ARTICLES SCORE Total number of steps: 0 DRESSING - LOWER BODY - SCORE: 0-UNK TOILETING: TOILETING - STEP 1: Does the patient require assistance with toileting? Yes. TOILETING - STEP 2: Does the patient require the assistance of a helper? Yes. TOILETING - STEP 3: How much assistance does the patient require from the helper? Hands-on assistance from the helper TOILETING - STEP 4: Of the 3 tasks: 1) Adjusting clothing prior to use, 2) Cleansing of perineal area, 3) Adjusting clot jany after use; How many tasks does the patient perform WITHOUT assistance of the helper? No tasks; h elper performs all three tasks TOILETING - SCORE: 1-DEP BLADDER MANAGEMENT: Patient spills the urinal and [place] changes patient's linen or clothing. BLADDER MANAGEMENT - SCORE: 1-DEP BOWEL MANAGEMENT: Activity did not occur on this shift BOWEL MANAGEMENT - SCORE: 7-IND TRANSFERS: BED, CHAIR, WHEELCHAIR: Activity did not occur on this shift TRANSFERS: BED, CHAIR, WHEELCHAIR - SCORE: 0-UNK TRANSFERS: TOILET: Activity did not occur on this shift TRANSFERS: TOILET - SCORE: 0-UNK TRANSFERS: SHOWER: Activity did not occur on this shift TRANSFERS: SHOWER - SCORE: 0-UNK TRANSFERS: TUB: Activity did not occur on this shift TRANSFERS: TUB - SCORE: 0-UNK LOCOMOTION: WALK: Activity did not occur on this shift LOCOMOTION: WALK - SCORE: 0-UNK LOCOMOTION: WHEELCHAIR: Activity did not occur on this shift LOCOMOTION: WHEELCHAIR - SCORE: 0-UNK COMPREHENSION: COMPREHENSION: TYPE: Both COMPREHENSION - STEP 1: Does the patient require help to understand complex and abstract ideas (such as current events, finan alonso, discharge planning, medical issues, relationships, etc)? No. COMPREHENSION - STEP 2: Does the patient need extra time, require an assistive device (such as glasses for visual comprehensi on or a hearing aid for auditory comprehension) or does s/he have mild difficulty understanding compl ex and abstract information? Yes. COMPREHENSION - SCORE: 6-KAMERON EXPRESSION EXPRESSION: TYPE: Both EXPRESSION - STEP 1: Does the patient require help expressing complex and abstract ideas (such as current events, finances , discharge planning, medical issues, relationships, etc)? No. EXPRESSION - STEP 2: Does the patient need extra time, require an assistive device (such as augmentive communication syste m or a communication board), OR does s/he have mild difficulty expressing complex and abstract ideas (including mild dysarthria or mild word-find problems)? No. EXPRESSION - SCORE: 7-IND SOCIAL INTERACTION: SOCIAL INTERACTION - STEP 1: Does the patient require a helper to interact with others in social and therapeutic situations? No. SOCIAL INTERACTION - STEP 2: Does the patient need extra time in social situations, OR does s/he interact with staff, other patien ts, and family members ONLY in structured environments, OR does s/he require medication for social in teraction? Yes, patient needs extra time SOCIAL INTERACTION - SCORE: 6-KAMERON PROBLEM SOLVING: PROBLEM SOLVING - STEP 1: Does the patient need help to solve complex problems such as managing a checking account or confronti ng interpersonal problems? No. PROBLEM SOLVING - STEP 2: Does the patient require extra time to make decisions or solve problems, OR does s/he have slight dif ficulty reading, initiating, or self-correcting in unfamiliar situations? Yes, patient needs extra ti me. PROBLEM SOLVING - SCORE: 6-KAMERON MEMORY: MEMORY - STEP 1: Does the patient need help to remember frequently encountered people, daily routines, and executing r equests? No. MEMORY - STEP 2: Does the patient have slight difficulty recognizing frequently encountered people, daily routines, or executing requests without the need for repetition or using self-initiated or environmental cues to remember? Yes. MEMORY - SCORE: 6-KAMERON SIGNATURE PANEL: The following modified sections: Eating - Score, Grooming - Score, Dressing - Upper Body - Score, Kash ssing - Lower Body - Score, Toileting - Score, Bladder Management - Score, Bowel Management - Score, Transfers: Bed, Chair, Wheelchair - Score, Transfers: Toilet - Score, Transfers: Shower - Score, Agosto sfers: Tub - Score, Locomotion: Walk - Score, Locomotion: Wheelchair - Score, Comprehension - Score, Expression - Score, Social Interaction - Score, Problem Solving - Score, Memory - Score were [electro nically] signed by Susie Pate CNA on TueMay 29 2018 01:50:25 GMT-0500 (Central Daylight Time)
[2018-05-29] MEDS: LEVOTHYROXINE SOD 0.112 MG TAB PO SCH (05:22)
[2018-05-29] MEDS: ENOXAPARIN 30 MG/0.3 ML SQ SCH (07:32)
[2018-05-29] MEDS: ENSURE HIGH PROTEIN 237 ML CAN PO SCH ×2 (08:00→19:52)
[2018-05-29] MEDS: NICOTINE 14 MG/PAT TD SCH (08:37)
[2018-05-29] MEDS: AMLODIPINE 10 MG TAB PO SCH (08:37)
[2018-05-29] MEDS: LIDOCAINE 5% PATCH TOP SCH (08:37)
[2018-05-29] MEDS: CLOPIDOGREL 75 MG TABLET PO SCH (08:38)
[2018-05-29] MEDS: ASPIRIN EC 81 MG TAB PO SCH (08:38)
[2018-05-29] MEDS: HYDROCODONE/APAP 5/325 MG TAB PO PRN ×2 (08:38→12:32)
[2018-05-29] MEDS: MAGNESIUM HYDROXIDE 8% 30 ML PO PRN (12:32)
--- NOTE | 2018-05-29 14:57 | FAST ---
ENCOUNTER DATE AND TIME: 05/29/2018 08:00 (CDT) NAME LISS BURGESS DATE OF : 1945 DATE OF ADMISSION: 05/26/2018 16:00 (CDT) PHONE: AGE: 72 SSN# [id number] GENDER: Male ENCOUNTER PHYSICIAN: Dr. Harmeet Byers M.D. 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 EATING: Activity did not occur on this shift EATING - SCORE: 0-UNK GROOMING: Activity did not occur on this shift GROOMING - SCORE: 0-UNK BATHING: Activity did not occur on this shift BATHING - SCORE: 0-UNK DRESSING - UPPER BODY: Activity did not occur on this shift Patient is not dressing in public clothing ARTICLES SCORE Total number of steps: 0 DRESSING - UPPER BODY - SCORE: 0-UNK DRESSING - LOWER BODY: Activity did not occur on this shift Patient is not dressing in public clothing ARTICLES SCORE Total number of steps: 0 DRESSING - LOWER BODY - SCORE: 0-UNK TOILETING: Activity did not occur on this shift TOILETING - SCORE: 0-UNK BLADDER MANAGEMENT: Activity did not occur on this shift BLADDER MANAGEMENT - SCORE: 7-IND BOWEL MANAGEMENT: Activity did not occur on this shift BOWEL MANAGEMENT - SCORE: 7-IND TRANSFERS: BED, CHAIR, WHEELCHAIR: TRANSFERS: BED, CHAIR, WHEELCHAIR - STEP 1: Does the patient require assistance with bed, chair, or wheelchair transfers? Yes. TRANSFERS: BED, CHAIR, WHEELCHAIR - STEP 2: Does the patient require the assistance of a helper? Yes. TRANSFERS: BED, CHAIR, WHEELCHAIR - STEP 3: How much assistance does the patient require from the helper? Lifting of the patient TRANSFERS: BED, CHAIR, WHEELCHAIR - STEP 4: Does the helper lift the patient ONLY up? ONLY down? Up AND Down? ONLY up. TRANSFERS: BED, CHAIR, WHEELCHAIR - SCORE: 3-MOD TRANSFERS: TOILET: Activity did not occur on this shift TRANSFERS: TOILET - SCORE: 0-UNK TRANSFERS: SHOWER: Activity did not occur on this shift TRANSFERS: SHOWER - SCORE: 0-UNK TRANSFERS: TUB: Activity did not occur on this shift TRANSFERS: TUB - SCORE: 0-UNK LOCOMOTION: WALK: LOCOMOTION: WALK - STEP 1: Does the patient need help to walk 150 feet? Yes. LOCOMOTION: WALK - STEP 2: How much assistance does the patient require to walk a minimum of 150 feet? Patient walks less than 1 50 feet - but more than 50 feet - with the assistance of only one helper LOCOMOTION: WALK - SCORE: 2-MAX LOCOMOTION: WHEELCHAIR: Activity did not occur on this shift LOCOMOTION: WHEELCHAIR - SCORE: 0-UNK LOCOMOTION: STAIRS: Activity did not occur on this shift LOCOMOTION: STAIRS - SCORE: 0-UNK COMPREHENSION: COMPREHENSION - SCORE: 0-UNK EXPRESSION EXPRESSION - SCORE: 0-UNK SOCIAL INTERACTION: SOCIAL INTERACTION - SCORE: 0-UNK PROBLEM SOLVING: PROBLEM SOLVING - SCORE: 0-UNK MEMORY: MEMORY - SCORE: 0-UNK SIGNATURE PANEL: The following modified sections: Transfers: Bed, Chair, Wheelchair - Score, Transfers: Toilet - Score , Locomotion: Walk - Score, Locomotion: Wheelchair - Score, Locomotion: Stairs - Score were [electron kathi] signed by Randell Mckeon PT on TueMay 29 2018 14:57:21 T-0500 (Central Daylight Time)
[2018-05-29] MEDS: HYDROCODONE/APAP 7.5/325 MG TAB PO PRN ×2 (17:09→21:28)
[2018-05-29] MEDS: DOCUSATE NA/SENNA CONC 1 TAB PO SCH (20:10)
[2018-05-29] MEDS: GABAPENTIN 300 MG CAP PO SCH (20:10)
[2018-05-29] MEDS: ATORVASTATIN 40 MG TAB PO SCH (20:11)
--- NOTE | 2018-05-30 02:34 | FAST ---
SHIFT START DATE/TIME: 05/29/2018 19:00 (CDT) SHIFT END DATE/TIME: 05/30/2018 07:00 (CDT) NAME LISS BURGESS DATE OF : 1945 DATE OF ADMISSION: 05/26/2018 16:00 (CDT) PHONE: AGE: 72 N# [id number] GENDER: Male ENCOUNTER PHYSICIAN: Dr. Harmeet Byers M.D. 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 EATING: Activity did not occur on this shift EATING - SCORE: 0-UNK GROOMING: Activity did not occur on this shift GROOMING - SCORE: 0-UNK BATHING: Activity did not occur on this shift BATHING - SCORE: 0-UNK DRESSING - UPPER BODY: Patient is not dressing in public clothing ARTICLES SCORE Total number of steps: 0 DRESSING - UPPER BODY - SCORE: 0-UNK DRESSING - LOWER BODY: Patient is not dressing in public clothing ARTICLES SCORE Total number of steps: 0 DRESSING - LOWER BODY - SCORE: 0-UNK TOILETING: TOILETING - STEP 1: Does the patient require assistance with toileting? Yes. TOILETING - STEP 2: Does the patient require the assistance of a helper? Yes. TOILETING - STEP 3: How much assistance does the patient require from the helper? Hands-on assistance from the helper TOILETING - STEP 4: Of the 3 tasks: 1) Adjusting clothing prior to use, 2) Cleansing of perineal area, 3) Adjusting clot jany after use; How many tasks does the patient perform WITHOUT assistance of the helper? No tasks; h jose performs all three tasks TOILETING - SCORE: 1-DEP BLADDER MANAGEMENT: BLADDER MANAGEMENT - STEP 1: Does the patient control the bladder completely and intentionally without equipment or devices or med ications, and is always continent? No. BLADDER MANAGEMENT - STEP 2: Does the patient require the assistance of a helper? Yes. BLADDER MANAGEMENT - STEP 3: How much assistance does the patient require from the helper? Patient requires contact assistance fro m the helper BLADDER MANAGEMENT - STEP 4: How much contact assistance does the patient require from the helper? Patient requires minimal assist ance to maintain an external device - by positioning, and the patient performs 75% or more of bladder management tasks, while the helper provides less than 25% of the assistance to position patient on / off bedpan BLADDER MANAGEMENT - SCORE: 4-MIN BOWEL MANAGEMENT: Activity did not occur on this shift BOWEL MANAGEMENT - SCORE: 7-IND TRANSFERS: BED, CHAIR, WHEELCHAIR: Activity did not occur on this shift TRANSFERS: BED, CHAIR, WHEELCHAIR - SCORE: 0-UNK TRANSFERS: TOILET: Activity did not occur on this shift TRANSFERS: TOILET - SCORE: 0-UNK TRANSFERS: SHOWER: Activity did not occur on this shift TRANSFERS: SHOWER - SCORE: 0-UNK TRANSFERS: TUB: Activity did not occur on this shift TRANSFERS: TUB - SCORE: 0-UNK LOCOMOTION: WALK: Activity did not occur on this shift LOCOMOTION: WALK - SCORE: 0-UNK LOCOMOTION: WHEELCHAIR: Activity did not occur on this shift LOCOMOTION: WHEELCHAIR - SCORE: 0-UNK COMPREHENSION: COMPREHENSION: TYPE: Both COMPREHENSION - STEP 1: Does the patient require help to understand complex and abstract ideas (such as current events, finan alonso, discharge planning, medical issues, relationships, etc)? No. COMPREHENSION - STEP 2: Does the patient need extra time, require an assistive device (such as glasses for visual comprehensi on or a hearing aid for auditory comprehension) or does s/he have mild difficulty understanding compl ex and abstract information? Yes. COMPREHENSION - SCORE: 6-KAMERON EXPRESSION EXPRESSION: TYPE: Both EXPRESSION - STEP 1: Does the patient require help expressing complex and abstract ideas (such as current events, finances , discharge planning, medical issues, relationships, etc)? No. EXPRESSION - STEP 2: Does the patient need extra time, require an assistive device (such as augmentive communication syste m or a communication board), OR does s/he have mild difficulty expressing complex and abstract ideas (including mild dysarthria or mild word-find problems)? Yes. EXPRESSION - SCORE: 6-KAMERON SOCIAL INTERACTION: SOCIAL INTERACTION - STEP 1: Does the patient require a helper to interact with others in social and therapeutic situations? No. SOCIAL INTERACTION - STEP 2: Does the patient need extra time in social situations, OR does s/he interact with staff, other patien ts, and family members ONLY in structured environments, OR does s/he require medication for social in teraction? Yes, patient needs extra time SOCIAL INTERACTION - SCORE: 6-KAMERON PROBLEM SOLVING: PROBLEM SOLVING - STEP 1: Does the patient need help to solve complex problems such as managing a checking account or confronti ng interpersonal problems? Yes. PROBLEM SOLVING - STEP 2: Does the patient solve basic routine problems half or more of the time? Yes. PROBLEM SOLVING - STEP 3: How often does the patient need help to solve basic routine problems? 10%-24% of the time PROBLEM SOLVING - SCORE: 4-MIN MEMORY: MEMORY - STEP 1: Does the patient need help to remember frequently encountered people, daily routines, and executing r equests? No. MEMORY - STEP 2: Does the patient have slight difficulty recognizing frequently encountered people, daily routines, or executing requests without the need for repetition or using self-initiated or environmental cues to remember? Yes. MEMORY - SCORE: 6-KAMERON SIGNATURE PANEL: The following modified sections: Eating - Score, Grooming - Score, Dressing - Upper Body - Score, Kash ssing - Lower Body - Score, Toileting - Score, Bladder Management - Score, Bowel Management - Score, Transfers: Bed, Chair, Wheelchair - Score, Transfers: Toilet - Score, Transfers: Shower - Score, Agosto sfers: Tub - Score, Locomotion: Walk - Score, Locomotion: Wheelchair - Score, Comprehension - Score, Expression - Score, Social Interaction - Score, Problem Solving - Score, Memory - Score were [electro nically] signed by Susie Pate CNA on TueMay 30 2018 02:34:18 GMT-0500 (Central Daylight Time)
[2018-05-30] MEDS: LEVOTHYROXINE SOD 0.112 MG TAB PO SCH (05:19)
[2018-05-30] MEDS: HYDROCODONE/APAP 7.5/325 MG TAB PO PRN ×4 (05:21→20:22)
[2018-05-30] MEDS: ENOXAPARIN 30 MG/0.3 ML SQ SCH (07:34)
[2018-05-30] MEDS: ENSURE HIGH PROTEIN 237 ML CAN PO SCH ×2 (08:00→18:20)
[2018-05-30] MEDS: CLOPIDOGREL 75 MG TABLET PO SCH (08:17)
[2018-05-30] MEDS: NICOTINE 14 MG/PAT TD SCH (08:17)
[2018-05-30] MEDS: ASPIRIN EC 81 MG TAB PO SCH (08:18)
[2018-05-30] MEDS: AMLODIPINE 10 MG TAB PO SCH (08:18)
[2018-05-30] MEDS: GABAPENTIN 300 MG CAP PO SCH ×2 (08:18→20:22)
[2018-05-30] MEDS: MAGNESIUM HYDROXIDE 8% 30 ML PO PRN (08:18)
--- NOTE | 2018-05-30 13:54 | FAST ---
SHIFT START DATE/TIME: 05/30/2018 07:00 (CDT) SHIFT END DATE/TIME: 05/30/2018 19:00 (CDT) NAME LISS BURGESS DATE OF : 1945 DATE OF ADMISSION: 05/26/2018 16:00 (CDT) PHONE: AGE: 72 N# [id number] GENDER: Male ENCOUNTER PHYSICIAN: Dr. Harmeet Byers M.D. 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 EATING: EATING - STEP 1: Does the patient require assistance when eating? Yes. EATING - STEP 2: Does the patient require the assistance of a helper? Yes. EATING - STEP 3: Does the patient perform half or more of the eating tasks? Yes. EATING - STEP 4: Does the patient need only supervision, cuing, coaxing OR help to apply an orthosis OR help to cut fo od, open containers, pour liquids, or butter bread? Yes. EATING - SCORE: 5-SUP GROOMING: Activity did not occur on this shift GROOMING - SCORE: 0-UNK BATHING: Activity did not occur on this shift BATHING - SCORE: 0-UNK DRESSING - UPPER BODY: Activity did not occur on this shift ARTICLES SCORE Total number of steps: 0 DRESSING - UPPER BODY - SCORE: 0-UNK DRESSING - LOWER BODY: Activity did not occur on this shift ARTICLES SCORE Total number of steps: 0 DRESSING - LOWER BODY - SCORE: 0-UNK TOILETING: TOILETING - STEP 1: Does the patient require assistance with toileting? Yes. TOILETING - STEP 2: Does the patient require the assistance of a helper? Yes. TOILETING - STEP 3: How much assistance does the patient require from the helper? Hands-on assistance from the helper TOILETING - STEP 4: Of the 3 tasks: 1) Adjusting clothing prior to use, 2) Cleansing of perineal area, 3) Adjusting clot jany after use; How many tasks does the patient perform WITHOUT assistance of the helper? Two tasks TOILETING - SCORE: 3-MOD BLADDER MANAGEMENT: BLADDER MANAGEMENT - STEP 1: Does the patient control the bladder completely and intentionally without equipment or devices or med ications, and is always continent? No. BLADDER MANAGEMENT - STEP 2: Does the patient require the assistance of a helper? No, patient requires and independently uses an a ssistive device, such as a urinal, bedpan, bedside commode, catheter, absorbent pad, or collecting de vice BLADDER MANAGEMENT - SCORE: 6-KAMERON BOWEL MANAGEMENT: Activity did not occur on this shift BOWEL MANAGEMENT - SCORE: 7-IND TRANSFERS: BED, CHAIR, WHEELCHAIR: TRANSFERS: BED, CHAIR, WHEELCHAIR - STEP 1: Does the patient require assistance with bed, chair, or wheelchair transfers? Yes. TRANSFERS: BED, CHAIR, WHEELCHAIR - STEP 2: Does the patient require the assistance of a helper? Yes. TRANSFERS: BED, CHAIR, WHEELCHAIR - STEP 3: How much assistance does the patient require from the helper? Lifting of the patient TRANSFERS: BED, CHAIR, WHEELCHAIR - STEP 4: Does the helper lift the patient ONLY up? ONLY down? Up AND Down? ONLY up. TRANSFERS: BED, CHAIR, WHEELCHAIR - SCORE: 3-MOD TRANSFERS: TOILET: Activity did not occur on this shift TRANSFERS: TOILET - SCORE: 0-UNK TRANSFERS: TOILET - COMMENTS: Pt refuses TRANSFERS: SHOWER: Activity did not occur on this shift TRANSFERS: SHOWER - SCORE: 0-UNK TRANSFERS: TUB: Activity did not occur on this shift TRANSFERS: TUB - SCORE: 0-UNK LOCOMOTION: WALK: Activity did not occur on this shift LOCOMOTION: WALK - SCORE: 0-UNK LOCOMOTION: WHEELCHAIR: Activity did not occur on this shift LOCOMOTION: WHEELCHAIR - SCORE: 0-UNK COMPREHENSION: COMPREHENSION: TYPE: Both COMPREHENSION - STEP 1: Does the patient require help to understand complex and abstract ideas (such as current events, finan alonso, discharge planning, medical issues, relationships, etc)? No. COMPREHENSION - STEP 2: Does the patient need extra time, require an assistive device (such as glasses for visual comprehensi on or a hearing aid for auditory comprehension) or does s/he have mild difficulty understanding compl ex and abstract information? Yes. COMPREHENSION - SCORE: 6-KAMERNO EXPRESSION EXPRESSION: TYPE: Both EXPRESSION - STEP 1: Does the patient require help expressing complex and abstract ideas (such as current events, finances , discharge planning, medical issues, relationships, etc)? No. EXPRESSION - STEP 2: Does the patient need extra time, require an assistive device (such as augmentive communication syste m or a communication board), OR does s/he have mild difficulty expressing complex and abstract ideas (including mild dysarthria or mild word-find problems)? Yes. EXPRESSION - SCORE: 6-KAMERON SOCIAL INTERACTION: SOCIAL INTERACTION - STEP 1: Does the patient require a helper to interact with others in social and therapeutic situations? No. SOCIAL INTERACTION - STEP 2: Does the patient need extra time in social situations, OR does s/he interact with staff, other patien ts, and family members ONLY in structured environments, OR does s/he require medication for social in teraction? Yes, patient needs extra time SOCIAL INTERACTION - SCORE: 6-KAMERON PROBLEM SOLVING: PROBLEM SOLVING - STEP 1: Does the patient need help to solve complex problems such as managing a checking account or confronti ng interpersonal problems? No. PROBLEM SOLVING - STEP 2: Does the patient require extra time to make decisions or solve problems, OR does s/he have slight dif ficulty reading, initiating, or self-correcting in unfamiliar situations? Yes, patient needs extra ti me. PROBLEM SOLVING - SCORE: 6-KAMERON MEMORY: MEMORY - STEP 1: Does the patient need help to remember frequently encountered people, daily routines, and executing r equests? No. MEMORY - STEP 2: Does the patient have slight difficulty recognizing frequently encountered people, daily routines, or executing requests without the need for repetition or using self-initiated or environmental cues to remember? Yes. MEMORY - SCORE: 6-KAMERON SIGNATURE PANEL: The following modified sections: Eating - Score, Grooming - Score, Bathing - Score, Dressing - Upper Body - Score, Dressing - Lower Body - Score, Toileting - Score, Bladder Management - Score, Bowel Man agement - Score, Transfers: Bed, Chair, Wheelchair - Score, Transfers: Toilet - Score, Transfers: Gil let - Comments:, Transfers: Shower - Score, Transfers: Tub - Score, Locomotion: Walk - Score, Locomot ion: Wheelchair - Score, Comprehension - Score, Expression - Score, Social Interaction - Score, Probl em Solving - Score, Memory - Score were [electronically] signed by Clarence Reddy on TueMay 30 2018 13:5 4:12 GMT-0500 (Central Daylight Time)
--- NOTE | 2018-05-30 14:09 | FAST ---
ENCOUNTER DATE AND TIME: 05/30/2018 08:00 (CDT) NAME LISS BURGESS DATE OF : 1945 DATE OF ADMISSION: 05/26/2018 16:00 (CDT) PHONE: AGE: 72 SSN# [id number] GENDER: Male ENCOUNTER PHYSICIAN: Dr. Harmeet Byers M.D. 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 EATING: Activity did not occur on this shift EATING - SCORE: 0-UNK GROOMING: Activity did not occur on this shift GROOMING - SCORE: 0-UNK BATHING: Activity did not occur on this shift BATHING - SCORE: 0-UNK DRESSING - UPPER BODY: Activity did not occur on this shift Patient is not dressing in public clothing ARTICLES SCORE Total number of steps: 0 DRESSING - UPPER BODY - SCORE: 0-UNK DRESSING - LOWER BODY: Activity did not occur on this shift Patient is not dressing in public clothing ARTICLES SCORE Total number of steps: 0 DRESSING - LOWER BODY - SCORE: 0-UNK TOILETING: Activity did not occur on this shift TOILETING - SCORE: 0-UNK BLADDER MANAGEMENT: Activity did not occur on this shift BLADDER MANAGEMENT - SCORE: 7-IND BOWEL MANAGEMENT: Activity did not occur on this shift BOWEL MANAGEMENT - SCORE: 7-IND TRANSFERS: BED, CHAIR, WHEELCHAIR: TRANSFERS: BED, CHAIR, WHEELCHAIR - STEP 1: Does the patient require assistance with bed, chair, or wheelchair transfers? Yes. TRANSFERS: BED, CHAIR, WHEELCHAIR - STEP 2: Does the patient require the assistance of a helper? Yes. TRANSFERS: BED, CHAIR, WHEELCHAIR - STEP 3: How much assistance does the patient require from the helper? Lifting of the patient TRANSFERS: BED, CHAIR, WHEELCHAIR - STEP 4: Does the helper lift the patient ONLY up? ONLY down? Up AND Down? ONLY up. TRANSFERS: BED, CHAIR, WHEELCHAIR - SCORE: 3-MOD TRANSFERS: TOILET: Activity did not occur on this shift TRANSFERS: TOILET - SCORE: 0-UNK TRANSFERS: SHOWER: Activity did not occur on this shift TRANSFERS: SHOWER - SCORE: 0-UNK TRANSFERS: TUB: Activity did not occur on this shift TRANSFERS: TUB - SCORE: 0-UNK LOCOMOTION: WALK: LOCOMOTION: WALK - STEP 1: Does the patient need help to walk 150 feet? Yes. LOCOMOTION: WALK - STEP 2: How much assistance does the patient require to walk a minimum of 150 feet? Patient walks less than 1 50 feet - but more than 50 feet - with the assistance of only one helper LOCOMOTION: WALK - SCORE: 2-MAX LOCOMOTION: WHEELCHAIR: LOCOMOTION: WHEELCHAIR - STEP 1: Does the patient need help to go 150 feet in a wheelchair? Yes. LOCOMOTION: WHEELCHAIR - STEP 2: How much assistance does the patient need from the helper? Only supervision, cuing, or coaxing LOCOMOTION: WHEELCHAIR - SCORE: 5-SUP LOCOMOTION: STAIRS: Activity did not occur on this shift LOCOMOTION: STAIRS - SCORE: 0-UNK COMPREHENSION: COMPREHENSION - SCORE: 0-UNK EXPRESSION EXPRESSION - SCORE: 0-UNK SOCIAL INTERACTION: SOCIAL INTERACTION - SCORE: 0-UNK PROBLEM SOLVING: PROBLEM SOLVING - SCORE: 0-UNK MEMORY: MEMORY - SCORE: 0-UNK SIGNATURE PANEL: The following modified sections: Transfers: Bed, Chair, Wheelchair - Score, Transfers: Toilet - Score , Locomotion: Walk - Score, Locomotion: Wheelchair - Score, Locomotion: Stairs - Score were [electron kathi] signed by Randell Mckeon PT on TueMay 30 2018 14:09:02 T-0500 (Central Daylight Time)
--- NOTE | 2018-05-30 15:48 | FAST ---
ENCOUNTER DATE AND TIME: 05/30/2018 08:00 (CDT) NAME LISS BURGESS DATE OF : 1945 DATE OF ADMISSION: 05/26/2018 16:00 (CDT) PHONE: AGE: 72 SSN# [id number] GENDER: Male ENCOUNTER PHYSICIAN: Dr. Harmeet Byers M.D. 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 EATING: Activity did not occur on this shift EATING - SCORE: 0-UNK GROOMING: Patient shaved Wash, rinse, and dry face Wash, rinse, and dry hands GROOMING - STEP 1: Does the patient require assistance when grooming? Yes. GROOMING - STEP 2: Does the patient require the assistance of a helper? Yes. GROOMING - STEP 3: How much assistance does the patient require from the helper? More than incidental help GROOMING - STEP 4: How many grooming tasks does the patient perform WITHOUT the assistance of the helper? Half or more o f the grooming tasks GROOMING - SCORE: 3-MOD BATHING: Abdomen Chest Left arm Right arm BATHING - STEP 1: Does the patient require assistance when bathing? Yes. BATHING - STEP 2: Does the patient require the assistance of a helper? Yes. BATHING - STEP 3: How much assistance does the patient require from the helper? Only supervision, cuing, coaxing, instr uctions, encouragement BATHING - SCORE: 5-SUP DRESSING - UPPER BODY: T-shirt/pullover shirt (four steps) ARTICLES SCORE Total number of steps: 4 DRESSING - UPPER BODY - STEP 1: Does the patient require help when dressing above the waist? Yes. DRESSING - UPPER BODY - STEP 2: Does the patient require the assistance of a helper? Yes. DRESSING - UPPER BODY - STEP 3: Does the helper touch the patient while dressing? No. DRESSING - UPPER BODY - SCORE: 5-SUP DRESSING - LOWER BODY: Activity did not occur on this shift ARTICLES SCORE Total number of steps: 0 DRESSING - LOWER BODY - SCORE: 0-UNK TOILETING: Activity did not occur on this shift TOILETING - SCORE: 0-UNK BLADDER MANAGEMENT: Activity did not occur on this shift BLADDER MANAGEMENT - SCORE: 7-IND BOWEL MANAGEMENT: Activity did not occur on this shift BOWEL MANAGEMENT - SCORE: 7-IND TRANSFERS: BED, CHAIR, WHEELCHAIR: Activity did not occur on this shift TRANSFERS: BED, CHAIR, WHEELCHAIR - SCORE: 0-UNK TRANSFERS: TOILET: Activity did not occur on this shift TRANSFERS: TOILET - SCORE: 0-UNK TRANSFERS: SHOWER: Activity did not occur on this shift TRANSFERS: SHOWER - SCORE: 0-UNK TRANSFERS: TUB: Activity did not occur on this shift TRANSFERS: TUB - SCORE: 0-UNK LOCOMOTION: WALK: Activity did not occur on this shift LOCOMOTION: WALK - SCORE: 0-UNK LOCOMOTION: WHEELCHAIR: Activity did not occur on this shift LOCOMOTION: WHEELCHAIR - SCORE: 0-UNK LOCOMOTION: STAIRS: Activity did not occur on this shift LOCOMOTION: STAIRS - SCORE: 0-UNK COMPREHENSION: COMPREHENSION: TYPE: Visual COMPREHENSION - SCORE: 0-UNK EXPRESSION EXPRESSION - SCORE: 0-UNK SOCIAL INTERACTION: SOCIAL INTERACTION - SCORE: 0-UNK PROBLEM SOLVING: PROBLEM SOLVING - SCORE: 0-UNK MEMORY: MEMORY - SCORE: 0-UNK SIGNATURE PANEL: The following modified sections: Eating - Score, Grooming - Score, Bathing - Score, Dressing - Upper Body - Score, Dressing - Lower Body - Score, Toileting - Score, Transfers: Bed, Chair, Wheelchair - S core, Transfers: Toilet - Score, Transfers: Shower - Score, Transfers: Tub - Score, Comprehension - S core, Expression - Score, Social Interaction - Score, Problem Solving - Score, Memory - Score were [e lectronically] signed by JOSIE Celis on TueMay 30 2018 15:47:43 [facility]-[id number] ([facility])
--- NOTE | 2018-05-30 18:42 | R.PN ---
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 Pt denied any depression. Ambulated 160' with minimum assistance using a rolling walker. VITAL SIGNS Temperature: 97.8 F SBP/DBP: 140/80 Pulse: 59 Resp: 16 MEDICATION ALLERGIES: No Known Drug Allergies (NKDA) ENVIRONMENTAL ALLERGIES: - Substance Allergies None Known - Other Allergies None Known NURSING: - Shower allowing shower - Bladder care per protocol - Skin care per protocol PRECAUTIONS: - Weight Bearing Precaution WBAT right LE ACTIVITIES OOB only with supervision THERAPIES: - Occupational Therapy Evaluate and Treat. Cognitive Retraining. Visual Perceptual Training. - Speech Therapy Memory Strategies. Expressive Language Skills. Speech Intelligibility Training. Cognitive Training. R eceptive Language Skills. - Physical Therapy Evaluate and Treat. PHYSICAL EXAM - Gen Alert and awake Lying in bed No apparent distress Oriented to: person, time, and place - Skin No breakdowns Right facial numbness and mild weakness with slurred speech. Cleared for thin and thick liquids - Eyes No abnormalities - ENMT No abnormalities - Neck No abnormalities - CVS RRR - Chest No abnormalities - Resp Clear to auscultation - Abd + bowel sounds - GI Soft Deferred - No abnormalities - Ext No significant edema - MSK 3-4/5 weakness in right upper and 4+/5 in right lower extremity - Neuro 3-4/5 weakness in the right upper and lower extremities. Decrease to touch and temperature in right u pper and lower extremities. - Psych No abnormalities ASSESSMENT: Pt. is a 72 yo Right-handed white male.On 05/23/2018 Pt. presented to [facility] [place], [place] with sudde n onset of right-side weakness.On 05/23/2018 he was admitted to [facility] [place], [place] with diagnosis l eft basal ganglia posterior limb.His impairment category is Stroke 01 - Right Body (Left Brain) (01. 2).Pre-morbidly, Pt. was independent/mod-I in Communication, Social Cognition, Self-Care, Sphincter C ontrol, Transfers Control, and Locomotion; and he had good Sphincter Control.Currently, he has defici ts of Communication, Social Cognition, Balance, Self-Care, Endurance, Safety Awareness, Transfers Con trol, and Locomotion.Pt. is now referred to [facility] for acute in-patient re habilitation in order to maximize patient's functional independence in activities of daily living, st rength, ROM, and mobility.- Rehab Goal Patient has realistic goal of being discharged at assistance level 6-Vi to reside at Home with Fam amena/Relatives. MDM/PLAN: - Physical Therapy Gait dysfunction - to improve, our physical therapists will perform initial evaluation of pt's statu s upon admission and devise an individualized program for Gait Training, and Wheel Chair mobility Inability to transfer - to improve, our physical therapists will perform initial evaluation of pt's status upon admission and devise an individualized program for Bed mobility Need for home safety evaluation - to improve, our physical therapists will perform initial evaluatio n of pt's status upon admission and devise an individualized program for Home Evaluation Need in caregiver upon discharge - to improve, our physical therapists will perform initial evaluati on of pt's status upon admission and devise an individualized program for Caregiver Training Edema - to improve, our physical therapists will perform initial evaluation of pt's status upon admi ssion and devise an individualized program for Elevation Training, and Lymphedema Therapy New precaution - to improve, our physical therapists will perform initial evaluation of pt's status upon admission and devise an individualized program for Patient precaution education Poor balance - to improve, our physical therapists will perform initial evaluation of pt's status up on admission and devise an individualized program for Balance Training Poor endurance - to improve, our physical therapists will perform initial evaluation of pt's status upon admission and devise an individualized program for Endurance Training Weakness - to improve, our physical therapists will perform initial evaluation of pt's status upon a dmission and devise an individualized program for Aquatic Therapy, Neuromuscular Reeducation, and Str engthening Achieving independence - to improve, our physical therapists will perform initial evaluation of pt's status upon admission and devise an individualized program for Community Reintegration Activities - Occupational Therapy ADL deficits - to improve, our occupation therapists will perform initial evaluation of pt's status upon admission and devise an individualized program for Bathing, Bed mobility, Community Reintegratio n, Cooking, Dressing, Eating, Fine Motor Skills, Grooming, Homemaking, Kitchen Mobility, Laundry, Pat ient Education, Safety Awareness, Splinting - Positioning, Transfers(Toilet, Tub, Shower), and Wheel Chair Management Cognitive deficits - to improve, our occupation therapists will perform initial evaluation of pt's s tatus upon admission and devise an individualized program for Cognition - orientation Need for respiratory care faculty - to improve, our occupation therapists will perform initial evaluation of pt's status upon admission and devise an individualized program for Caregiver Training Weakness - to improve, our occupation therapists will perform initial evaluation of pt's status upon admission and devise an individualized program for Aquatic Therapy, Balance, Endurance, UE ROM, and UE strengthening - Diet Type Continue Regular - Diet - Liquid Texture Continue Regular - Tube Feed Continue N/A - Bladder care per protocol - Weight Bearing Precaution WBAT right LE - Skin care per protocol - Diet - Solid Texture Continue Regular Continue Mechanical Soft - Shower allowing shower for Dementia, TBI, Stroke, or others FUNCTIONAL STATUS: UPDATED AT WEEKLY TEAM CONFERENCE - Bladder Same accident frequency: 7-Ind - No accidents in the past 7 days - Bowel Same accident frequency: 7-Ind - No accidents in the past 7 days - Walking Same score based on distance walked: 0(N/A) FUNCTIONAL STATUS: - Self-Care A. Eating Carli B. Grooming Carli C. Bathing modA D. Dressing - Upper Carli E. Dressing - Lower modA F. Toileting modA - Sphincter Control G: Bladder control Ind H: Bowel control Ind - Transfers Control I. Bed/Chair/Wheelchair modA J. Toilet modA K. Tub/Shower modA - Locomotion L. Walk/Wheelchair (B) Dep - Communication N. Comprehension (B) Carli O. Expression (B) sup - Social Cognition P. Social Interaction sup Q. Problem Solving sup R. Memory Carli - Endurance Poor - Balance Poor - Safety Awareness Poor CURRENT FUNC. DEFICITS: Communication, Social Cognition, Balance, Self-Care, Endurance, Safety Awareness, Transfers Control, and Locomotion SIGNATURE PANEL: (CDT)
[2018-05-30] MEDS: PROMOD 30 ML DOSE PO SCH (20:00)
[2018-05-30] MEDS: DOCUSATE NA/SENNA CONC 1 TAB PO SCH (20:21)
[2018-05-30] MEDS: MAGNESIUM OXIDE 400 MG TAB PO SCH (20:22)
[2018-05-30] MEDS: ATORVASTATIN 40 MG TAB PO SCH (20:22)
[2018-05-30] MEDS: MELATONIN 3 MG TABLET PO PRN (21:04)
[2018-05-31] MEDS: HYDROCODONE/APAP 7.5/325 MG TAB PO PRN ×3 (05:04→21:25)
[2018-05-31] MEDS: LEVOTHYROXINE SOD 0.112 MG TAB PO SCH (05:04)
[2018-05-31] MEDS: PROMOD 30 ML DOSE PO SCH ×2 (08:00→20:00)
[2018-05-31] MEDS: ENSURE HIGH PROTEIN 237 ML CAN PO SCH ×2 (08:00→20:00)
[2018-05-31] MEDS: CLOPIDOGREL 75 MG TABLET PO SCH (08:29)
[2018-05-31] MEDS: ENOXAPARIN 30 MG/0.3 ML SQ SCH (08:29)
[2018-05-31] MEDS: ASPIRIN EC 81 MG TAB PO SCH (08:29)
[2018-05-31] MEDS: MAGNESIUM OXIDE 400 MG TAB PO SCH ×2 (08:29→21:24)
[2018-05-31] MEDS: GABAPENTIN 300 MG CAP PO SCH ×2 (08:30→21:24)
[2018-05-31] MEDS: NICOTINE 14 MG/PAT TD SCH (08:31)
[2018-05-31] MEDS ORDERED: FLEET ENEMA ADULT PR PRN (09:30)
--- NOTE | 2018-05-31 10:19 | RAD REPORT ---
EXAM DESCRIPTION: RAD - Abdomen 1 View (KUB) - 05/31/2018 10:01 am CLINICAL HISTORY: Abdomen pain. Constipation FINDINGS: The bowel gas pattern is unremarkable. A moderate to large amount of stool is present throughout the colon. Vascular calcifications are seen .
[2018-05-31] MEDS: AMLODIPINE 10 MG TAB PO SCH (14:18)
[2018-05-31] MEDS ORDERED: MAGNES/ALUMIN/SIMET 30ML UCUP PO PRN (14:45)
[2018-05-31] MEDS: ATORVASTATIN 40 MG TAB PO SCH (21:24)
[2018-05-31] MEDS: DOCUSATE NA/SENNA CONC 1 TAB PO SCH (21:25)
[2018-05-31] MEDS: MELATONIN 3 MG TABLET PO PRN (21:25)
[2018-06-01] MEDS: LEVOTHYROXINE SOD 0.112 MG TAB PO SCH (05:13)
[2018-06-01 06:44] LABS: Absolute Lymphocytes (CBC) 1.6 K/uL (0.7-4.9); Absolute Monocytes 0.7 K/uL (0.1-1.3); Absolute Neutrophil 3.6 K/uL (1.8-8.0); Basophils % 0.7 % (0-1.3); Eosinophils % 2.7 % (0-4.4); Lymphocytes % 26.6 % (15.3-44.8); MCH 34.2 pg (27.0-35.0); MCV 98.5 fL (80-100); Monocytes % 11.5 % (3.3-12.3); RBC Red Blood Cell Count 4.16 M/uL (4.33-5.43)
[2018-06-01] MEDS: ENOXAPARIN 30 MG/0.3 ML SQ SCH (07:08)
[2018-06-01] MEDS: PROMOD 30 ML DOSE PO SCH ×2 (08:00→19:06)
[2018-06-01] MEDS: ENSURE HIGH PROTEIN 237 ML CAN PO SCH ×2 (08:00→19:06)
[2018-06-01] MEDS: CLOPIDOGREL 75 MG TABLET PO SCH (08:23)
[2018-06-01] MEDS: ASPIRIN EC 81 MG TAB PO SCH (08:23)
[2018-06-01] MEDS: MAGNESIUM OXIDE 400 MG TAB PO SCH ×2 (08:23→19:05)
[2018-06-01] MEDS: GABAPENTIN 300 MG CAP PO SCH ×2 (08:23→19:05)
[2018-06-01] MEDS: NICOTINE 14 MG/PAT TD SCH (08:24)
[2018-06-01] MEDS: HYDROCODONE/APAP 7.5/325 MG TAB PO PRN ×3 (08:26→19:04)
[2018-06-01 09:23] LABS: Albumin 3.2 g/dL (3.4-5.0); Magnesium 2.7 mg/dL (1.8-2.4); Potassium 4.2 mmol/L (3.5-5.1); Prealbumin 19.2 mg/dL (20-40)
[2018-06-01] MEDS: AMLODIPINE 10 MG TAB PO SCH (11:32)
--- NOTE | 2018-06-01 18:45 | R.PN ---
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 Pt denied any depression. Ambulated 250' with minimum assistance using a rolling walker. VITAL SIGNS Temperature: 97.8 F SBP/DBP: 125/68 Pulse: 78 Resp: 16 MEDICATION ALLERGIES: No Known Drug Allergies (NKDA) ENVIRONMENTAL ALLERGIES: - Substance Allergies None Known - Other Allergies None Known NURSING: - Shower allowing shower - Bladder care per protocol - Skin care per protocol PRECAUTIONS: - Weight Bearing Precaution WBAT right LE ACTIVITIES OOB only with supervision THERAPIES: - Occupational Therapy Evaluate and Treat. Cognitive Retraining. Visual Perceptual Training. - Speech Therapy Memory Strategies. Expressive Language Skills. Speech Intelligibility Training. Cognitive Training. R eceptive Language Skills. - Physical Therapy Evaluate and Treat. PHYSICAL EXAM - Gen Alert and awake Lying in bed No apparent distress Oriented to: person, time, and place - Skin No breakdowns Right facial numbness and mild weakness with slurred speech. Cleared for thin and thick liquids - Eyes No abnormalities - ENMT No abnormalities - Neck No abnormalities - CVS RRR - Chest No abnormalities - Resp Clear to auscultation - Abd + bowel sounds - GI Soft Deferred - No abnormalities - Ext No significant edema - MSK 3-4/5 weakness in right upper and 4+/5 in right lower extremity - Neuro 3-4/5 weakness in the right upper and lower extremities. Decrease to touch and temperature in right u pper and lower extremities. - Psych No abnormalities ASSESSMENT: Pt. is a 72 yo Right-handed white male.On 05/23/2018 Pt. presented to [facility] with sudde n onset of right-side weakness.On 05/23/2018 he was admitted to [facility] with diagnosis l eft basal ganglia posterior limb.His impairment category is Stroke 01 - Right Body (Left Brain) (01. 2).Pre-morbidly, Pt. was independent/mod-I in Communication, Social Cognition, Self-Care, Sphincter C ontrol, Transfers Control, and Locomotion; and he had good Sphincter Control.Currently, he has defici ts of Communication, Social Cognition, Balance, Self-Care, Endurance, Safety Awareness, Transfers Con trol, and Locomotion.Pt. is now referred to [facility] for acute in-patient re habilitation in order to maximize patient's functional independence in activities of daily living, st rength, ROM, and mobility.- Rehab Goal Patient has realistic goal of being discharged at assistance level 6-Vi to reside at Home with Fam amena/Relatives. MDM/PLAN: - Physical Therapy Gait dysfunction - to improve, our physical therapists will perform initial evaluation of pt's statu s upon admission and devise an individualized program for Gait Training, and Wheel Chair mobility Inability to transfer - to improve, our physical therapists will perform initial evaluation of pt's status upon admission and devise an individualized program for Bed mobility Need for home safety evaluation - to improve, our physical therapists will perform initial evaluatio n of pt's status upon admission and devise an individualized program for Home Evaluation Need in caregiver upon discharge - to improve, our physical therapists will perform initial evaluati on of pt's status upon admission and devise an individualized program for Caregiver Training Edema - to improve, our physical therapists will perform initial evaluation of pt's status upon admi ssion and devise an individualized program for Elevation Training, and Lymphedema Therapy New precaution - to improve, our physical therapists will perform initial evaluation of pt's status upon admission and devise an individualized program for Patient precaution education Poor balance - to improve, our physical therapists will perform initial evaluation of pt's status up on admission and devise an individualized program for Balance Training Poor endurance - to improve, our physical therapists will perform initial evaluation of pt's status upon admission and devise an individualized program for Endurance Training Weakness - to improve, our physical therapists will perform initial evaluation of pt's status upon a dmission and devise an individualized program for Aquatic Therapy, Neuromuscular Reeducation, and Str engthening Achieving independence - to improve, our physical therapists will perform initial evaluation of pt's status upon admission and devise an individualized program for Community Reintegration Activities - Occupational Therapy ADL deficits - to improve, our occupation therapists will perform initial evaluation of pt's status upon admission and devise an individualized program for Bathing, Bed mobility, Community Reintegratio n, Cooking, Dressing, Eating, Fine Motor Skills, Grooming, Homemaking, Kitchen Mobility, Laundry, Pat ient Education, Safety Awareness, Splinting - Positioning, Transfers(Toilet, Tub, Shower), and Wheel Chair Management Cognitive deficits - to improve, our occupation therapists will perform initial evaluation of pt's s tatus upon admission and devise an individualized program for Cognition - orientation Need for nurse care manager - to improve, our occupation therapists will perform initial evaluation of pt's status upon admission and devise an individualized program for Caregiver Training Weakness - to improve, our occupation therapists will perform initial evaluation of pt's status upon admission and devise an individualized program for Aquatic Therapy, Balance, Endurance, UE ROM, and UE strengthening - Diet Type Continue Regular - Diet - Liquid Texture Continue Regular - Tube Feed Continue N/A - Bladder care per protocol - Weight Bearing Precaution WBAT right LE - Skin care per protocol - Diet - Solid Texture Continue Regular Continue Mechanical Soft - Shower allowing shower for Dementia, TBI, Stroke, or others FUNCTIONAL STATUS: UPDATED AT WEEKLY TEAM CONFERENCE - Bladder Same accident frequency: 7-Ind - No accidents in the past 7 days - Bowel Same accident frequency: 7-Ind - No accidents in the past 7 days - Walking Same score based on distance walked: 0(N/A) FUNCTIONAL STATUS: - Self-Care A. Eating Carli B. Grooming Carli C. Bathing modA D. Dressing - Upper Carli E. Dressing - Lower modA F. Toileting modA - Sphincter Control G: Bladder control Ind H: Bowel control Ind - Transfers Control I. Bed/Chair/Wheelchair modA J. Toilet modA K. Tub/Shower modA - Locomotion L. Walk/Wheelchair (B) Dep - Communication N. Comprehension (B) Carli O. Expression (B) sup - Social Cognition P. Social Interaction sup Q. Problem Solving sup R. Memory Carli - Endurance Poor - Balance Poor - Safety Awareness Poor CURRENT FUNC. DEFICITS: Communication, Social Cognition, Balance, Self-Care, Endurance, Safety Awareness, Transfers Control, and Locomotion SIGNATURE PANEL: (CDT)
[2018-06-01] MEDS: ATORVASTATIN 40 MG TAB PO SCH (21:34)
[2018-06-01] MEDS: DOCUSATE NA/SENNA CONC 1 TAB PO SCH (21:34)
[2018-06-01] MEDS: MELATONIN 3 MG TABLET PO PRN (21:35)
[2018-06-02] MEDS: LEVOTHYROXINE SOD 0.112 MG TAB PO SCH (05:13)
[2018-06-02] MEDS: ENSURE HIGH PROTEIN 237 ML CAN PO SCH ×2 (08:00→20:00)
[2018-06-02] MEDS: PROMOD 30 ML DOSE PO SCH ×2 (08:00→20:00)
[2018-06-02] MEDS: ENOXAPARIN 30 MG/0.3 ML SQ SCH (08:10)
[2018-06-02] MEDS: AMLODIPINE 10 MG TAB PO SCH (08:10)
[2018-06-02] MEDS: ASPIRIN EC 81 MG TAB PO SCH (08:10)
[2018-06-02] MEDS: NICOTINE 14 MG/PAT TD SCH (08:11)
[2018-06-02] MEDS: GABAPENTIN 300 MG CAP PO SCH ×2 (08:11→20:24)
[2018-06-02] MEDS: CLOPIDOGREL 75 MG TABLET PO SCH (08:11)
[2018-06-02] MEDS: MAGNESIUM OXIDE 400 MG TAB PO SCH ×2 (08:11→20:24)
[2018-06-02] MEDS: HYDROCODONE/APAP 7.5/325 MG TAB PO PRN (08:20)
--- NOTE | 2018-06-02 09:57 | P.RH.PN ---
Estimated Length of Stay: 23 Expected Discharge Date: 06/17/18 Discharge Disposition Plan: Home Family Support: Yes Nursing Home Goal: Mobility, Transfers, Self Care Vital Signs: Last Vital Signs Temp 97.2 F 06/01/18 20:30 Pulse 70 06/02/18 08:10 Resp 18 06/01/18 20:30 BP 127/73 06/02/18 08:10 Pulse Ox 98 06/01/18 20:30 Laboratory: Laboratory Last Values WBC 6.2 K/uL (4.3-10.9) 06/01/18 06:05 RBC 4.16 M/uL (4.33-5.43) L 06/01/18 06:05 Hgb 14.2 g/dL (13.6-17.9) 06/01/18 06:05 Hct 41.0 % (39.6-49.0) 06/01/18 06:05 MCV 98.5 fL (80-100) 06/01/18 06:05 MCH 34.2 pg (27.0-35.0) 06/01/18 06:05 MCHC 34.7 g/dL (32.0-36.0) 06/01/18 06:05 RDW 13.7 % (12.1-15.2) 06/01/18 06:05 Plt Count 195 K/uL (152-406) D 06/01/18 06:05 MPV 9.0 fL (7.6-11.3) 06/01/18 06:05 Neutrophils % 58.5 % (41.7-73.7) 06/01/18 06:05 Lymphocytes % 26.6 % (15.3-44.8) 06/01/18 06:05 Monocytes % 11.5 % (3.3-12.3) 06/01/18 06:05 Eosinophils % 2.7 % (0-4.4) 06/01/18 06:05 Basophils % 0.7 % (0-1.3) 06/01/18 06:05 Absolute Neutrophils 3.6 K/uL (1.8-8.0) 06/01/18 06:05 Absolute Lymphocytes 1.6 K/uL (0.7-4.9) 06/01/18 06:05 Absolute Monocytes 0.7 K/uL (0.1-1.3) 06/01/18 06:05 Absolute Eosinophils 0.2 K/uL (0-0.5) 06/01/18 06:05 Absolute Basophils 0.0 K/uL (0-0.5) 06/01/18 06:05 Sodium 138 mmol/L (136-145) 06/01/18 06:05 Potassium 4.2 mmol/L (3.5-5.1) 06/01/18 06:05 Chloride 105 mmol/L (98-107) 06/01/18 06:05 Carbon Dioxide 27 mmol/L (21-32) 06/01/18 06:05 BUN 20 mg/dL (7-18) H 06/01/18 06:05 Creatinine 1.00 mg/dL (0.55-1.3) 06/01/18 06:05 Estimated GFR 74 mL/min (=/>90) L 06/01/18 06:05 Glucose 101 mg/dL (74-106) 06/01/18 06:05 Calcium 8.6 mg/dL (8.5-10.1) 06/01/18 06:05 Magnesium 2.7 mg/dL (1.8-2.4) H 06/01/18 06:05 Albumin 3.2 g/dL (3.4-5.0) L 06/01/18 06:05 Prealbumin 19.2 mg/dL (20-40) L 06/01/18 06:05 Urine Color Yellow 05/26/18 06:35 Urine Appearance Clear 05/26/18 06:35 Urine pH 7.5 (5.0-7.0) H 05/26/18 06:35 Ur Specific [place] <=1.005 (1.005-1.030) 05/26/18 06:35 Urine Ketones Negative (NEG) 05/26/18 06:35 Urine Blood Negative (NEG) 05/26/18 06:35 Urine Nitrite Negative (NEG) 05/26/18 06:35 Urine Bilirubin Negative (NEG) 05/26/18 06:35 Urine Urobilinogen 0.2 mg/dL (0.2-1.0) 05/26/18 06:35 Ur Leukocyte Esterase Negative (NEG) 05/26/18 06:35 Urine RBC None seen /HPF (NONE SEEN) 05/26/18 06:35 Urine WBC <5 /HPF (<5) 05/26/18 06:35 Ur Squamous Epith Cells <5 /HPF (NONE SEEN) 05/26/18 06:35 Urine Bacteria <20 /HPF (NONE SEEN) 05/26/18 06:35 Urine Culture Reflexed Not needed 05/26/18 06:35 Urine Glucose Negative (NEG) 05/26/18 06:35 Urine Total Protein Negative (NEG) 05/26/18 06:35 Weight: 204 lb Wound Present: No Closed Surgical Incision Present: No Negative Pressure Wound Therapy Present: No Physician Update: His labs have been reviewed and are medically stable. He is making slow progress with recovery of strength in his right arm after his stroke. His hand coordination is improving. He still needs help holding the urinal in bed. He is at max asistance in the bathroom. Medication Issues: Lovenox 30mg Daily SQ. Aspirin 81mg Daily PO. Plavix 75mg Daily PO Pain Issues: [place] 7.5/325mg Q4H PRN PO Functional Improvement: Patient continues to present w/ Min A for transfers and fatigues quickly. Patient has been performing ambulation w/ other therapists. Summary: Patient's care plan and terminal clerk goals have been reviewed and revised as necessary. Please see the Rehabilitation Signature page for all necessary signatures.
[2018-06-02] MEDS: GUAIFENESIN/DM 5 ML UCUP PO PRN (20:23)
[2018-06-02] MEDS: ATORVASTATIN 40 MG TAB PO SCH (20:24)
[2018-06-02] MEDS: DOCUSATE NA/SENNA CONC 1 TAB PO SCH (20:24)
[2018-06-03] MEDS: MELATONIN 3 MG TABLET PO PRN ×2 (02:00→21:44)
[2018-06-03] MEDS: GUAIFENESIN/DM 5 ML UCUP PO PRN ×4 (02:00→18:11)
[2018-06-03] MEDS: LEVOTHYROXINE SOD 0.112 MG TAB PO SCH (06:23)
[2018-06-03] MEDS: ENOXAPARIN 30 MG/0.3 ML SQ SCH (07:57)
[2018-06-03] MEDS: GABAPENTIN 300 MG CAP PO SCH ×2 (07:58→19:27)
[2018-06-03] MEDS: ASPIRIN EC 81 MG TAB PO SCH (07:58)
[2018-06-03] MEDS: HYDROCODONE/APAP 7.5/325 MG TAB PO PRN ×3 (07:58→19:28)
[2018-06-03] MEDS: MAGNESIUM OXIDE 400 MG TAB PO SCH ×2 (07:59→19:27)
[2018-06-03] MEDS: AMLODIPINE 10 MG TAB PO SCH (07:59)
[2018-06-03] MEDS: CLOPIDOGREL 75 MG TABLET PO SCH (07:59)
[2018-06-03] MEDS: NICOTINE 14 MG/PAT TD SCH (07:59)
[2018-06-03] MEDS: ENSURE HIGH PROTEIN 237 ML CAN PO SCH ×2 (08:00→19:32)
[2018-06-03] MEDS: LIDOCAINE 5% PATCH TOP SCH (08:00)
[2018-06-03] MEDS: PROMOD 30 ML DOSE PO SCH ×2 (08:52→19:27)
--- NOTE | 2018-06-03 10:56 | FAST ---
SHIFT START DATE/TIME: 06/03/2018 07:00 (CDT) SHIFT END DATE/TIME: 06/03/2018 19:00 (CDT) NAME LISS BURGESS DATE OF : 1945 DATE OF ADMISSION: 05/26/2018 16:00 (CDT) PHONE: AGE: 72 N# [id number] GENDER: Male ENCOUNTER PHYSICIAN: Dr. Harmeet Byers M.D. 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 EATING: EATING - STEP 1: Does the patient require assistance when eating? Yes. EATING - STEP 2: Does the patient require the assistance of a helper? Yes. EATING - STEP 3: Does the patient perform half or more of the eating tasks? Yes. EATING - STEP 4: Does the patient need only supervision, cuing, coaxing OR help to apply an orthosis OR help to cut fo od, open containers, pour liquids, or butter bread? Yes. EATING - SCORE: 5-SUP GROOMING: Activity did not occur on this shift GROOMING - SCORE: 0-UNK BATHING: Activity did not occur on this shift BATHING - SCORE: 0-UNK DRESSING - UPPER BODY: T-shirt/pullover shirt (four steps) ARTICLES SCORE Total number of steps: 4 DRESSING - UPPER BODY - STEP 1: Does the patient require help when dressing above the waist? Yes. DRESSING - UPPER BODY - STEP 2: Does the patient require the assistance of a helper? Yes. DRESSING - UPPER BODY - STEP 3: Does the helper touch the patient while dressing? Yes. DRESSING - UPPER BODY - STEP 4: How many of the total steps does the patient complete on his/her own? 4 DRESSING - UPPER BODY - SCORE: 4-MIN DRESSING - LOWER BODY: ARTICLES SCORE Total number of steps: 8 DRESSING - LOWER BODY - STEP 1: Does the patient require help when dressing below the waist? Yes. DRESSING - LOWER BODY - STEP 2: Does the patient require the assistance of a helper? Yes. DRESSING - LOWER BODY - STEP 3: Does the helper touch the patient while dressing? Yes. DRESSING - LOWER BODY - STEP 4: How many of the total steps does the patient complete on his/her own? 4 DRESSING - LOWER BODY - SCORE: 3-MOD TOILETING: TOILETING - STEP 1: Does the patient require assistance with toileting? Yes. TOILETING - STEP 2: Does the patient require the assistance of a helper? Yes. TOILETING - STEP 3: How much assistance does the patient require from the helper? Hands-on assistance from the helper TOILETING - STEP 4: Of the 3 tasks: 1) Adjusting clothing prior to use, 2) Cleansing of perineal area, 3) Adjusting clot jany after use; How many tasks does the patient perform WITHOUT assistance of the helper? Two tasks TOILETING - SCORE: 3-MOD BLADDER MANAGEMENT: BLADDER MANAGEMENT - STEP 1: Does the patient control the bladder completely and intentionally without equipment or devices or med ications, and is always continent? No. BLADDER MANAGEMENT - STEP 2: Does the patient require the assistance of a helper? No, patient requires and independently uses an a ssistive device, such as a urinal, bedpan, bedside commode, catheter, absorbent pad, or collecting de vice BLADDER MANAGEMENT - SCORE: 6-KAMERON BOWEL MANAGEMENT: Activity did not occur on this shift BOWEL MANAGEMENT - SCORE: 7-IND TRANSFERS: BED, CHAIR, WHEELCHAIR: TRANSFERS: BED, CHAIR, WHEELCHAIR - STEP 1: Does the patient require assistance with bed, chair, or wheelchair transfers? Yes. TRANSFERS: BED, CHAIR, WHEELCHAIR - STEP 2: Does the patient require the assistance of a helper? Yes. TRANSFERS: BED, CHAIR, WHEELCHAIR - STEP 3: How much assistance does the patient require from the helper? Lifting of the patient TRANSFERS: BED, CHAIR, WHEELCHAIR - STEP 4: Does the helper lift the patient ONLY up? ONLY down? Up AND Down? ONLY up. TRANSFERS: BED, CHAIR, WHEELCHAIR - SCORE: 3-MOD TRANSFERS: TOILET: TRANSFERS: TOILET - STEP 1: Does the patient require assistance with toilet transfers? Yes. TRANSFERS: TOILET - STEP 2: Does the patient require the assistance of a helper? Yes. TRANSFERS: TOILET - STEP 3: How much assistance does the patient require from the helper? Patient performs half or more of the tr ansferring tasks TRANSFERS: TOILET - STEP 4: Does the patient need only incidental help such as contact guard or steadying during toilet transfer? No. Patient needs more than incidental help TRANSFERS: TOILET - SCORE: 3-MOD TRANSFERS: SHOWER: Activity did not occur on this shift TRANSFERS: SHOWER - SCORE: 0-UNK TRANSFERS: TUB: Activity did not occur on this shift TRANSFERS: TUB - SCORE: 0-UNK LOCOMOTION: WALK: Activity did not occur on this shift LOCOMOTION: WALK - SCORE: 0-UNK LOCOMOTION: WHEELCHAIR: Activity did not occur on this shift LOCOMOTION: WHEELCHAIR - SCORE: 0-UNK COMPREHENSION: COMPREHENSION: TYPE: Both COMPREHENSION - STEP 1: Does the patient require help to understand complex and abstract ideas (such as current events, finan alonso, discharge planning, medical issues, relationships, etc)? Yes. COMPREHENSION - STEP 2: Does the patient require help to understand questions or statements about basic needs or ideas (such as hunger, thirst, sleep, safety, daily schedule, room location, or discomfort) half or more of the t cj? No. COMPREHENSION - STEP 3: How often does the patient need help to understand directions and conversation about basic needs? Les s than 10% of the time COMPREHENSION - SCORE: 5-SUP EXPRESSION EXPRESSION: TYPE: Both EXPRESSION - STEP 1: Does the patient require help expressing complex and abstract ideas (such as current events, finances , discharge planning, medical issues, relationships, etc)? Yes. EXPRESSION - STEP 2: Does the patient require help to express basic necessities or ideas (such as hunger, thirst, sleep, s afety, daily schedule, room location, or discomfort) half or more of the time? No. EXPRESSION - STEP 3: How often does the patient need help to express directions and conversation about basic needs? Less t glez 10% of the time EXPRESSION - SCORE: 5-SUP SOCIAL INTERACTION: SOCIAL INTERACTION - STEP 1: Does the patient require a helper to interact with others in social and therapeutic situations? Yes. SOCIAL INTERACTION - STEP 2: Does the patient interact appropriately half or more of the time? Yes. SOCIAL INTERACTION - STEP 3: How often does the patient need help to interact appropriately? Less than 10% of the time SOCIAL INTERACTION - SCORE: 5-SUP PROBLEM SOLVING: PROBLEM SOLVING - STEP 1: Does the patient need help to solve complex problems such as managing a checking account or confronti ng interpersonal problems? Yes. PROBLEM SOLVING - STEP 2: Does the patient solve basic routine problems half or more of the time? Yes. PROBLEM SOLVING - STEP 3: How often does the patient need help to solve basic routine problems? Less than 10% of the time PROBLEM SOLVING - SCORE: 5-SUP MEMORY: MEMORY - STEP 1: Does the patient need help to remember frequently encountered people, daily routines, and executing r equests? Yes. MEMORY - STEP 2: How often does the patient need help to remember frequently encountered people, daily routines, and e xecuting requests? Less than 10% of the time MEMORY - SCORE: 5-SUP SIGNATURE PANEL: The following modified sections: Grooming - Score, Bathing - Score, Dressing - Upper Body - Score, Dr essing - Lower Body - Score, Toileting - Score, Bladder Management - Score, Bowel Management - Score, Eating - Score, Transfers: Bed, Chair, Wheelchair - Score, Transfers: Toilet - Score, Transfers: Qian wer - Score, Transfers: Tub - Score, Locomotion: Walk - Score, Locomotion: Wheelchair - Score, Compre hension - Score, Expression - Score, Social Interaction - Score, Problem Solving - Score, Memory - Sc ore were [electronically] signed by Clarence Reddy on Sat Jun 03 2018 10:55:21 GMT-0500 (Central Daylight Time)
--- NOTE | 2018-06-03 14:03 | RAD REPORT ---
EXAM DESCRIPTION: Arturo Single View06/03/2018 1:08 pm CLINICAL HISTORY: cough COMPARISON: None FINDINGS: The lungs appear clear of acute infiltrate. The heart is normal size. Postsurgical changes involve the chest. IMPRESSION: No acute abnormalities displayed
[2018-06-03] MEDS: ATORVASTATIN 40 MG TAB PO SCH (20:49)
[2018-06-03] MEDS: DOCUSATE NA/SENNA CONC 1 TAB PO SCH (20:49)
[2018-06-04] MEDS: HYDROCODONE/APAP 7.5/325 MG TAB PO PRN ×2 (05:11→20:07)
[2018-06-04] MEDS: LEVOTHYROXINE SOD 0.112 MG TAB PO SCH (05:11)
[2018-06-04] MEDS: GUAIFENESIN/DM 5 ML UCUP PO PRN ×3 (06:05→20:06)
[2018-06-04] MEDS: AMLODIPINE 10 MG TAB PO SCH (08:00)
[2018-06-04] MEDS: PROMOD 30 ML DOSE PO SCH ×2 (08:00→20:06)
[2018-06-04] MEDS: ENSURE HIGH PROTEIN 237 ML CAN PO SCH ×2 (08:00→20:00)
[2018-06-04] MEDS: LIDOCAINE 5% PATCH TOP SCH (09:14)
[2018-06-04] MEDS: NICOTINE 14 MG/PAT TD SCH (09:14)
[2018-06-04] MEDS: ENOXAPARIN 30 MG/0.3 ML SQ SCH (09:14)
[2018-06-04] MEDS: MAGNESIUM OXIDE 400 MG TAB PO SCH ×2 (09:16→20:07)
[2018-06-04] MEDS: CLOPIDOGREL 75 MG TABLET PO SCH (09:16)
[2018-06-04] MEDS: GABAPENTIN 300 MG CAP PO SCH ×2 (09:16→20:06)
[2018-06-04] MEDS: ASPIRIN EC 81 MG TAB PO SCH (09:17)
--- NOTE | 2018-06-04 11:22 | FAST ---
SHIFT START DATE/TIME: 06/04/2018 07:00 (CDT) SHIFT END DATE/TIME: 06/04/2018 19:00 (CDT) NAME LISS BURGESS DATE OF : 1945 DATE OF ADMISSION: 05/26/2018 16:00 (CDT) PHONE: AGE: 72 N# [id number] GENDER: Male ENCOUNTER PHYSICIAN: Dr. Harmeet Byers M.D. 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 EATING: EATING - STEP 1: Does the patient require assistance when eating? Yes. EATING - STEP 2: Does the patient require the assistance of a helper? Yes. EATING - STEP 3: Does the patient perform half or more of the eating tasks? Yes. EATING - STEP 4: Does the patient need only supervision, cuing, coaxing OR help to apply an orthosis OR help to cut fo od, open containers, pour liquids, or butter bread? Yes. EATING - SCORE: 5-SUP GROOMING: Activity did not occur on this shift GROOMING - SCORE: 0-UNK BATHING: Activity did not occur on this shift BATHING - SCORE: 0-UNK DRESSING - UPPER BODY: T-shirt/pullover shirt (four steps) ARTICLES SCORE Total number of steps: 4 DRESSING - UPPER BODY - STEP 1: Does the patient require help when dressing above the waist? Yes. DRESSING - UPPER BODY - STEP 2: Does the patient require the assistance of a helper? Yes. DRESSING - UPPER BODY - STEP 3: Does the helper touch the patient while dressing? No. DRESSING - UPPER BODY - SCORE: 5-SUP DRESSING - LOWER BODY: ARTICLES SCORE Total number of steps: 9 DRESSING - LOWER BODY - STEP 1: Does the patient require help when dressing below the waist? Yes. DRESSING - LOWER BODY - STEP 2: Does the patient require the assistance of a helper? Yes. DRESSING - LOWER BODY - STEP 3: Does the helper touch the patient while dressing? Yes. DRESSING - LOWER BODY - STEP 4: How many of the total steps does the patient complete on his/her own? 7 DRESSING - LOWER BODY - SCORE: 4-MIN TOILETING: TOILETING - STEP 1: Does the patient require assistance with toileting? Yes. TOILETING - STEP 2: Does the patient require the assistance of a helper? Yes. TOILETING - STEP 3: How much assistance does the patient require from the helper? Hands-on assistance from the helper TOILETING - STEP 4: Of the 3 tasks: 1) Adjusting clothing prior to use, 2) Cleansing of perineal area, 3) Adjusting clot jany after use; How many tasks does the patient perform WITHOUT assistance of the helper? Three tasks with steadying assistance from the helper TOILETING - SCORE: 4-MIN BLADDER MANAGEMENT: BLADDER MANAGEMENT - STEP 1: Does the patient control the bladder completely and intentionally without equipment or devices or med ications, and is always continent? No. BLADDER MANAGEMENT - STEP 2: Does the patient require the assistance of a helper? No, patient requires and independently uses an a ssistive device, such as a urinal, bedpan, bedside commode, catheter, absorbent pad, or collecting de vice BLADDER MANAGEMENT - SCORE: 6-KMAERON BOWEL MANAGEMENT: Activity did not occur on this shift BOWEL MANAGEMENT - SCORE: 7-IND TRANSFERS: BED, CHAIR, WHEELCHAIR: TRANSFERS: BED, CHAIR, WHEELCHAIR - STEP 1: Does the patient require assistance with bed, chair, or wheelchair transfers? Yes. TRANSFERS: BED, CHAIR, WHEELCHAIR - STEP 2: Does the patient require the assistance of a helper? Yes. TRANSFERS: BED, CHAIR, WHEELCHAIR - STEP 3: How much assistance does the patient require from the helper? Steadying/guiding assistance TRANSFERS: BED, CHAIR, WHEELCHAIR - SCORE: 4-MIN TRANSFERS: TOILET: TRANSFERS: TOILET - STEP 1: Does the patient require assistance with toilet transfers? Yes. TRANSFERS: TOILET - STEP 2: Does the patient require the assistance of a helper? Yes. TRANSFERS: TOILET - STEP 3: How much assistance does the patient require from the helper? Patient performs half or more of the tr ansferring tasks TRANSFERS: TOILET - STEP 4: Does the patient need only incidental help such as contact guard or steadying during toilet transfer? Yes. TRANSFERS: TOILET - SCORE: 4-MIN TRANSFERS: SHOWER: Activity did not occur on this shift TRANSFERS: SHOWER - SCORE: 0-UNK TRANSFERS: TUB: Activity did not occur on this shift TRANSFERS: TUB - SCORE: 0-UNK LOCOMOTION: WALK: Activity did not occur on this shift LOCOMOTION: WALK - SCORE: 0-UNK LOCOMOTION: WHEELCHAIR: Activity did not occur on this shift LOCOMOTION: WHEELCHAIR - SCORE: 0-UNK COMPREHENSION: COMPREHENSION: TYPE: Both COMPREHENSION - STEP 1: Does the patient require help to understand complex and abstract ideas (such as current events, finan alonso, discharge planning, medical issues, relationships, etc)? No. COMPREHENSION - STEP 2: Does the patient need extra time, require an assistive device (such as glasses for visual comprehensi on or a hearing aid for auditory comprehension) or does s/he have mild difficulty understanding compl ex and abstract information? Yes. COMPREHENSION - SCORE: 6-KAMERON EXPRESSION EXPRESSION: TYPE: Both EXPRESSION - STEP 1: Does the patient require help expressing complex and abstract ideas (such as current events, finances , discharge planning, medical issues, relationships, etc)? No. EXPRESSION - STEP 2: Does the patient need extra time, require an assistive device (such as augmentive communication syste m or a communication board), OR does s/he have mild difficulty expressing complex and abstract ideas (including mild dysarthria or mild word-find problems)? Yes. EXPRESSION - SCORE: 6-KAMERON SOCIAL INTERACTION: SOCIAL INTERACTION - STEP 1: Does the patient require a helper to interact with others in social and therapeutic situations? No. SOCIAL INTERACTION - STEP 2: Does the patient need extra time in social situations, OR does s/he interact with staff, other patien ts, and family members ONLY in structured environments, OR does s/he require medication for social in teraction? Yes, patient needs extra time SOCIAL INTERACTION - SCORE: 6-KAMERON PROBLEM SOLVING: PROBLEM SOLVING - STEP 1: Does the patient need help to solve complex problems such as managing a checking account or confronti ng interpersonal problems? No. PROBLEM SOLVING - STEP 2: Does the patient require extra time to make decisions or solve problems, OR does s/he have slight dif ficulty reading, initiating, or self-correcting in unfamiliar situations? Yes, patient needs extra ti me. PROBLEM SOLVING - SCORE: 6-KAMERON MEMORY: MEMORY - STEP 1: Does the patient need help to remember frequently encountered people, daily routines, and executing r equests? No. MEMORY - STEP 2: Does the patient have slight difficulty recognizing frequently encountered people, daily routines, or executing requests without the need for repetition or using self-initiated or environmental cues to remember? Yes. MEMORY - SCORE: 6-KAMERON SIGNATURE PANEL: The following modified sections: Eating - Score, Grooming - Score, Bathing - Score, Dressing - Upper Body - Score, Dressing - Lower Body - Score, Toileting - Score, Bladder Management - Score, Bowel Man agement - Score, Transfers: Bed, Chair, Wheelchair - Score, Transfers: Toilet - Score, Transfers: Qian wer - Score, Transfers: Tub - Score, Locomotion: Walk - Score, Locomotion: Wheelchair - Score, Compre hension - Score, Expression - Score, Social Interaction - Score, Problem Solving - Score, Memory - Sc ore were [electronically] signed by Clarence Reddy on TueJun 04 2018 11:21:01 T-0500 (Central Daylight Time)
[2018-06-04] MEDS: ATORVASTATIN 40 MG TAB PO SCH (20:07)
[2018-06-04] MEDS: DOCUSATE NA/SENNA CONC 1 TAB PO SCH (20:07)
[2018-06-04] MEDS: MELATONIN 3 MG TABLET PO PRN (21:55)
[2018-06-05] MEDS: LEVOTHYROXINE SOD 0.112 MG TAB PO SCH (05:21)
[2018-06-05] MEDS: HYDROCODONE/APAP 7.5/325 MG TAB PO PRN ×3 (05:23→19:45)
[2018-06-05] MEDS: GUAIFENESIN/DM 5 ML UCUP PO PRN ×3 (05:23→19:45)
[2018-06-05] MEDS: ENOXAPARIN 30 MG/0.3 ML SQ SCH (07:00)
[2018-06-05] MEDS: NICOTINE 14 MG/PAT TD SCH (07:01)
[2018-06-05] MEDS: MAGNESIUM OXIDE 400 MG TAB PO SCH ×2 (07:02→19:42)
[2018-06-05] MEDS: CLOPIDOGREL 75 MG TABLET PO SCH (07:02)
[2018-06-05] MEDS: ASPIRIN EC 81 MG TAB PO SCH (07:02)
[2018-06-05] MEDS: GABAPENTIN 300 MG CAP PO SCH ×2 (07:02→22:37)
[2018-06-05] MEDS: ENSURE HIGH PROTEIN 237 ML CAN PO SCH ×2 (07:02→19:42)
[2018-06-05] MEDS: LIDOCAINE 5% PATCH TOP SCH (07:02)
[2018-06-05] MEDS: AMLODIPINE 10 MG TAB PO SCH (07:03)
[2018-06-05] MEDS: PROMOD 30 ML DOSE PO SCH ×2 (07:03→19:47)
[2018-06-05] MEDS: ATORVASTATIN 40 MG TAB PO SCH (19:41)
[2018-06-05] MEDS: DOCUSATE NA/SENNA CONC 1 TAB PO SCH (19:42)
[2018-06-05] MEDS: MELATONIN 3 MG TABLET PO PRN (22:37)
--- NOTE | 2018-06-06 01:50 | FAST ---
SHIFT START DATE/TIME: 06/05/2018 19:00 (CDT) SHIFT END DATE/TIME: 06/06/2018 07:00 (CDT) NAME LISS BURGESS DATE OF : 1945 DATE OF ADMISSION: 05/26/2018 16:00 (CDT) PHONE: AGE: 72 N# [id number] GENDER: Male ENCOUNTER PHYSICIAN: Dr. Harmeet Byers M.D. 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 EATING: Activity did not occur on this shift EATING - SCORE: 0-UNK GROOMING: Activity did not occur on this shift GROOMING - SCORE: 0-UNK BATHING: Activity did not occur on this shift BATHING - SCORE: 0-UNK DRESSING - UPPER BODY: Patient is not dressing in public clothing ARTICLES SCORE Total number of steps: 0 DRESSING - UPPER BODY - SCORE: 0-UNK DRESSING - LOWER BODY: Patient is not dressing in public clothing ARTICLES SCORE Total number of steps: 0 DRESSING - LOWER BODY - SCORE: 0-UNK TOILETING: TOILETING - STEP 1: Does the patient require assistance with toileting? Yes. TOILETING - STEP 2: Does the patient require the assistance of a helper? Yes. TOILETING - STEP 3: How much assistance does the patient require from the helper? Hands-on assistance from the helper TOILETING - STEP 4: Of the 3 tasks: 1) Adjusting clothing prior to use, 2) Cleansing of perineal area, 3) Adjusting clot jany after use; How many tasks does the patient perform WITHOUT assistance of the helper? No tasks; juan garcia performs all three tasks TOILETING - SCORE: 1-DEP BLADDER MANAGEMENT: BLADDER MANAGEMENT - STEP 1: Does the patient control the bladder completely and intentionally without equipment or devices or med ications, and is always continent? No. BLADDER MANAGEMENT - STEP 2: Does the patient require the assistance of a helper? Yes. BLADDER MANAGEMENT - STEP 3: How much assistance does the patient require from the helper? Only set-up of equipment - such as plac ing it within reach of the patient or emptying a device - to maintain either satisfactory voiding pat tern or managing an external device, such as an absorbent pad, ileal device, or catheter BLADDER MANAGEMENT - SCORE: 5-SUP BOWEL MANAGEMENT: Activity did not occur on this shift BOWEL MANAGEMENT - SCORE: 7-IND TRANSFERS: BED, CHAIR, WHEELCHAIR: TRANSFERS: BED, CHAIR, WHEELCHAIR - STEP 1: Does the patient require assistance with bed, chair, or wheelchair transfers? Yes. TRANSFERS: BED, CHAIR, WHEELCHAIR - STEP 2: Does the patient require the assistance of a helper? Yes. TRANSFERS: BED, CHAIR, WHEELCHAIR - STEP 3: How much assistance does the patient require from the helper? Lifting of the legs TRANSFERS: BED, CHAIR, WHEELCHAIR - STEP 4: How many legs does the patient require the helper to lift? both legs TRANSFERS: BED, CHAIR, WHEELCHAIR - SCORE: 3-MOD TRANSFERS: TOILET: TRANSFERS: TOILET - STEP 1: Does the patient require assistance with toilet transfers? Yes. TRANSFERS: TOILET - STEP 2: Does the patient require the assistance of a helper? Yes. TRANSFERS: TOILET - STEP 3: How much assistance does the patient require from the helper? Patient performs half or more of the tr ansferring tasks TRANSFERS: TOILET - STEP 4: Does the patient need only incidental help such as contact guard or steadying during toilet transfer? Yes. TRANSFERS: TOILET - SCORE: 4-MIN TRANSFERS: SHOWER: Activity did not occur on this shift TRANSFERS: SHOWER - SCORE: 0-UNK TRANSFERS: TUB: Activity did not occur on this shift TRANSFERS: TUB - SCORE: 0-UNK LOCOMOTION: WALK: Activity did not occur on this shift LOCOMOTION: WALK - SCORE: 0-UNK LOCOMOTION: WHEELCHAIR: Activity did not occur on this shift LOCOMOTION: WHEELCHAIR - SCORE: 0-UNK COMPREHENSION: COMPREHENSION: TYPE: Both COMPREHENSION - STEP 1: Does the patient require help to understand complex and abstract ideas (such as current events, finan alonso, discharge planning, medical issues, relationships, etc)? No. COMPREHENSION - STEP 2: Does the patient need extra time, require an assistive device (such as glasses for visual comprehensi on or a hearing aid for auditory comprehension) or does s/he have mild difficulty understanding compl ex and abstract information? Yes. COMPREHENSION - SCORE: 6-KAMERON EXPRESSION EXPRESSION: TYPE: Both EXPRESSION - STEP 1: Does the patient require help expressing complex and abstract ideas (such as current events, finances , discharge planning, medical issues, relationships, etc)? No. EXPRESSION - STEP 2: Does the patient need extra time, require an assistive device (such as augmentive communication syste m or a communication board), OR does s/he have mild difficulty expressing complex and abstract ideas (including mild dysarthria or mild word-find problems)? Yes. EXPRESSION - SCORE: 6-KAMERON SOCIAL INTERACTION: SOCIAL INTERACTION - STEP 1: Does the patient require a helper to interact with others in social and therapeutic situations? No. SOCIAL INTERACTION - STEP 2: Does the patient need extra time in social situations, OR does s/he interact with staff, other patien ts, and family members ONLY in structured environments, OR does s/he require medication for social in teraction? Yes, patient needs extra time SOCIAL INTERACTION - SCORE: 6-KAMERON PROBLEM SOLVING: PROBLEM SOLVING - STEP 1: Does the patient need help to solve complex problems such as managing a checking account or confronti ng interpersonal problems? No. PROBLEM SOLVING - STEP 2: Does the patient require extra time to make decisions or solve problems, OR does s/he have slight dif ficulty reading, initiating, or self-correcting in unfamiliar situations? Yes, patient needs extra ti me. PROBLEM SOLVING - SCORE: 6-KAMERON MEMORY: MEMORY - STEP 1: Does the patient need help to remember frequently encountered people, daily routines, and executing r equests? No. MEMORY - STEP 2: Does the patient have slight difficulty recognizing frequently encountered people, daily routines, or executing requests without the need for repetition or using self-initiated or environmental cues to remember? Yes. MEMORY - SCORE: 6-KAMERON SIGNATURE PANEL: The following modified sections: Eating - Score, Grooming - Score, Dressing - Upper Body - Score, Kash ssing - Lower Body - Score, Toileting - Score, Bladder Management - Score, Bowel Management - Score, Transfers: Bed, Chair, Wheelchair - Score, Transfers: Toilet - Score, Transfers: Shower - Score, Agosto sfers: Tub - Score, Locomotion: Walk - Score, Locomotion: Wheelchair - Score, Comprehension - Score, Expression - Score, Social Interaction - Score, Problem Solving - Score, Memory - Score were [electro nically] signed by Susie Pate CNA on TueJun 06 2018 01:49:00 GMT-0500 (Central Daylight Time)
[2018-06-06] MEDS: GUAIFENESIN/DM 5 ML UCUP PO PRN ×4 (02:30→19:33)
[2018-06-06] MEDS: LEVOTHYROXINE SOD 0.112 MG TAB PO SCH (05:24)
[2018-06-06] MEDS: HYDROCODONE/APAP 7.5/325 MG TAB PO PRN ×3 (07:41→19:32)
[2018-06-06] MEDS: ASPIRIN EC 81 MG TAB PO SCH (07:42)
[2018-06-06] MEDS: GABAPENTIN 300 MG CAP PO SCH ×2 (07:42→19:33)
[2018-06-06] MEDS: CLOPIDOGREL 75 MG TABLET PO SCH (07:42)
[2018-06-06] MEDS: MAGNESIUM OXIDE 400 MG TAB PO SCH ×2 (07:43→19:32)
[2018-06-06] MEDS: ENOXAPARIN 30 MG/0.3 ML SQ SCH (07:43)
[2018-06-06] MEDS: NICOTINE 14 MG/PAT TD SCH (07:44)
[2018-06-06] MEDS: AMLODIPINE 10 MG TAB PO SCH (07:48)
[2018-06-06] MEDS: LIDOCAINE 5% PATCH TOP SCH (07:48)
[2018-06-06] MEDS: ENSURE HIGH PROTEIN 237 ML CAN PO SCH ×2 (08:00→19:34)
[2018-06-06] MEDS: PROMOD 30 ML DOSE PO SCH ×2 (08:00→19:33)
[2018-06-06] MEDS: MAGNESIUM HYDROXIDE 8% 30 ML PO PRN (08:28)
[2018-06-06] MEDS: ATORVASTATIN 40 MG TAB PO SCH (21:12)
[2018-06-06] MEDS: DOCUSATE NA/SENNA CONC 1 TAB PO SCH (21:12)
[2018-06-06] MEDS: MELATONIN 3 MG TABLET PO PRN (22:01)
[2018-06-07] MEDS: HYDROCODONE/APAP 7.5/325 MG TAB PO PRN ×3 (00:55→19:13)
[2018-06-07] MEDS: GUAIFENESIN/DM 5 ML UCUP PO PRN ×2 (00:56→05:36)
[2018-06-07] MEDS: LEVOTHYROXINE SOD 0.112 MG TAB PO SCH (05:36)
[2018-06-07] MEDS: LIDOCAINE 5% PATCH TOP SCH (06:54)
[2018-06-07] MEDS: ENOXAPARIN 30 MG/0.3 ML SQ SCH (06:56)
[2018-06-07] MEDS: ENSURE HIGH PROTEIN 237 ML CAN PO SCH ×2 (08:00→19:12)
[2018-06-07] MEDS: PROMOD 30 ML DOSE PO SCH ×2 (08:00→19:12)
[2018-06-07] MEDS: AMLODIPINE 10 MG TAB PO SCH (08:00)
[2018-06-07] MEDS: ASPIRIN EC 81 MG TAB PO SCH (08:14)
[2018-06-07] MEDS: GABAPENTIN 300 MG CAP PO SCH ×2 (08:14→19:13)
[2018-06-07] MEDS: CLOPIDOGREL 75 MG TABLET PO SCH (08:14)
[2018-06-07] MEDS: MAGNESIUM OXIDE 400 MG TAB PO SCH ×2 (08:14→19:13)
[2018-06-07] MEDS: NICOTINE 14 MG/PAT TD SCH (08:15)
[2018-06-07] MEDS: GUAIFENESIN 600 MG SA TAB PO PRN (10:40)
[2018-06-07] MEDS ORDERED: ALBUTEROL 2.5 MG/3 ML NEB SOL NEB PRN (11:46)
--- NOTE | 2018-06-07 12:58 | FAST ---
SHIFT START DATE/TIME: 06/07/2018 07:00 (CDT) SHIFT END DATE/TIME: 06/07/2018 19:00 (CDT) NAME LISS BURGESS DATE OF : 1945 DATE OF ADMISSION: 05/26/2018 16:00 (CDT) PHONE: AGE: 72 N# [id number] GENDER: Male ENCOUNTER PHYSICIAN: Dr. Harmeet Byers M.D. 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 EATING: EATING - STEP 1: Does the patient require assistance when eating? Yes. EATING - STEP 2: Does the patient require the assistance of a helper? Yes. EATING - STEP 3: Does the patient perform half or more of the eating tasks? Yes. EATING - STEP 4: Does the patient need only supervision, cuing, coaxing OR help to apply an orthosis OR help to cut fo od, open containers, pour liquids, or butter bread? Yes. EATING - SCORE: 5-SUP GROOMING: Activity did not occur on this shift GROOMING - SCORE: 0-UNK BATHING: Activity did not occur on this shift BATHING - SCORE: 0-UNK DRESSING - UPPER BODY: Activity did not occur on this shift ARTICLES SCORE Total number of steps: 0 DRESSING - UPPER BODY - SCORE: 0-UNK DRESSING - LOWER BODY: Activity did not occur on this shift ARTICLES SCORE Total number of steps: 0 DRESSING - LOWER BODY - SCORE: 0-UNK TOILETING: TOILETING - STEP 1: Does the patient require assistance with toileting? Yes. TOILETING - STEP 2: Does the patient require the assistance of a helper? Yes. TOILETING - STEP 3: How much assistance does the patient require from the helper? Hands-on assistance from the helper TOILETING - STEP 4: Of the 3 tasks: 1) Adjusting clothing prior to use, 2) Cleansing of perineal area, 3) Adjusting clot jany after use; How many tasks does the patient perform WITHOUT assistance of the helper? One task TOILETING - SCORE: 2-MAX BLADDER MANAGEMENT: BLADDER MANAGEMENT - STEP 1: Does the patient control the bladder completely and intentionally without equipment or devices or med ications, and is always continent? No. BLADDER MANAGEMENT - STEP 2: Does the patient require the assistance of a helper? No, patient requires and independently uses an a ssistive device, such as a urinal, bedpan, bedside commode, catheter, absorbent pad, or collecting de vice BLADDER MANAGEMENT - SCORE: 6-KAMERON BOWEL MANAGEMENT: BOWEL MANAGEMENT - STEP 1: Does the patient control bowels completely and intentionally without equipment devices or medications AND is always continent? No. BOWEL MANAGEMENT - STEP 2: Does the patient require the assistance of a helper? No, patient requires medication for control such as stool softeners, suppositories, laxatives, enemas, or OTC medications BOWEL MANAGEMENT - SCORE: 6-KAMERON TRANSFERS: BED, CHAIR, WHEELCHAIR: TRANSFERS: BED, CHAIR, WHEELCHAIR - STEP 1: Does the patient require assistance with bed, chair, or wheelchair transfers? Yes. TRANSFERS: BED, CHAIR, WHEELCHAIR - STEP 2: Does the patient require the assistance of a helper? Yes. TRANSFERS: BED, CHAIR, WHEELCHAIR - STEP 3: How much assistance does the patient require from the helper? Steadying/guiding assistance TRANSFERS: BED, CHAIR, WHEELCHAIR - SCORE: 4-MIN TRANSFERS: TOILET: TRANSFERS: TOILET - STEP 1: Does the patient require assistance with toilet transfers? Yes. TRANSFERS: TOILET - STEP 2: Does the patient require the assistance of a helper? Yes. TRANSFERS: TOILET - STEP 3: How much assistance does the patient require from the helper? Patient performs half or more of the tr ansferring tasks TRANSFERS: TOILET - STEP 4: Does the patient need only incidental help such as contact guard or steadying during toilet transfer? Yes. TRANSFERS: TOILET - SCORE: 4-MIN TRANSFERS: SHOWER: Activity did not occur on this shift TRANSFERS: SHOWER - SCORE: 0-UNK TRANSFERS: TUB: Activity did not occur on this shift TRANSFERS: TUB - SCORE: 0-UNK LOCOMOTION: WALK: Activity did not occur on this shift LOCOMOTION: WALK - SCORE: 0-UNK LOCOMOTION: WHEELCHAIR: Activity did not occur on this shift LOCOMOTION: WHEELCHAIR - SCORE: 0-UNK COMPREHENSION: COMPREHENSION: TYPE: Both COMPREHENSION - STEP 1: Does the patient require help to understand complex and abstract ideas (such as current events, finan alonso, discharge planning, medical issues, relationships, etc)? Yes. COMPREHENSION - STEP 2: Does the patient require help to understand questions or statements about basic needs or ideas (such as hunger, thirst, sleep, safety, daily schedule, room location, or discomfort) half or more of the t cj? No. COMPREHENSION - STEP 3: How often does the patient need help to understand directions and conversation about basic needs? 10% - 24% of the time COMPREHENSION - SCORE: 4-MIN EXPRESSION EXPRESSION: TYPE: Both EXPRESSION - STEP 1: Does the patient require help expressing complex and abstract ideas (such as current events, finances , discharge planning, medical issues, relationships, etc)? Yes. EXPRESSION - STEP 2: Does the patient require help to express basic necessities or ideas (such as hunger, thirst, sleep, s afety, daily schedule, room location, or discomfort) half or more of the time? No. EXPRESSION - STEP 3: How often does the patient need help to express directions and conversation about basic needs? Less t glez 10% of the time EXPRESSION - SCORE: 5-SUP SOCIAL INTERACTION: SOCIAL INTERACTION - STEP 1: Does the patient require a helper to interact with others in social and therapeutic situations? No. SOCIAL INTERACTION - STEP 2: Does the patient need extra time in social situations, OR does s/he interact with staff, other patien ts, and family members ONLY in structured environments, OR does s/he require medication for social in teraction? Yes, patient needs extra time SOCIAL INTERACTION - SCORE: 6-KAMERON PROBLEM SOLVING: PROBLEM SOLVING - STEP 1: Does the patient need help to solve complex problems such as managing a checking account or confronti ng interpersonal problems? Yes. PROBLEM SOLVING - STEP 2: Does the patient solve basic routine problems half or more of the time? Yes. PROBLEM SOLVING - STEP 3: How often does the patient need help to solve basic routine problems? Less than 10% of the time PROBLEM SOLVING - SCORE: 5-SUP MEMORY: MEMORY - STEP 1: Does the patient need help to remember frequently encountered people, daily routines, and executing r equests? Yes. MEMORY - STEP 2: How often does the patient need help to remember frequently encountered people, daily routines, and e xecuting requests? Less than 10% of the time MEMORY - SCORE: 5-SUP SIGNATURE PANEL: The following modified sections: Eating - Score, Grooming - Score, Bathing - Score, Dressing - Upper Body - Score, Dressing - Lower Body - Score, Toileting - Score, Bladder Management - Score, Bowel Man agement - Score, Transfers: Bed, Chair, Wheelchair - Score, Transfers: Toilet - Score, Transfers: Qian wer - Score, Transfers: Tub - Score, Locomotion: Walk - Score, Locomotion: Wheelchair - Score, Compre hension - Score, Expression - Score, Social Interaction - Score, Problem Solving - Score, Memory - Sc ore were [electronically] signed by Clarence Reddy on TueJun 07 2018 12:57:53 GMT-0500 (Central Daylight Time)
[2018-06-07] MEDS: DOCUSATE NA/SENNA CONC 1 TAB PO SCH (20:01)
[2018-06-07] MEDS: MELATONIN 3 MG TABLET PO PRN (21:48)
[2018-06-07] MEDS: ATORVASTATIN 40 MG TAB PO SCH (21:48)
[2018-06-08] MEDS: GUAIFENESIN 600 MG SA TAB PO PRN ×2 (02:53→20:23)
[2018-06-08] MEDS: HYDROCODONE/APAP 7.5/325 MG TAB PO PRN ×2 (05:06→20:22)
[2018-06-08] MEDS: LEVOTHYROXINE SOD 0.112 MG TAB PO SCH (05:06)
[2018-06-08 06:30] LABS: Albumin 2.7 g/dL (3.4-5.0); Potassium 4.3 mmol/L (3.5-5.1); Prealbumin 9.5 mg/dL (20-40)
[2018-06-08 06:31] LABS: Absolute Lymphocytes (CBC) 1.3 K/uL (0.7-4.9); Basophils % 0.9 % (0-1.3); Eosinophils % 2.6 % (0-4.4); Hematocrit 34.8 % (39.6-49.0); MCH 34.5 pg (27.0-35.0); MPV 8.5 fL (7.6-11.3); Monocytes % 15.1 % (3.3-12.3); RBC Red Blood Cell Count 3.51 M/uL (4.33-5.43)
[2018-06-08] MEDS: ENOXAPARIN 30 MG/0.3 ML SQ SCH (06:44)
[2018-06-08] MEDS: GABAPENTIN 300 MG CAP PO SCH ×2 (07:54→20:23)
[2018-06-08] MEDS: NICOTINE 14 MG/PAT TD SCH (07:54)
[2018-06-08] MEDS: ASPIRIN EC 81 MG TAB PO SCH (07:54)
[2018-06-08] MEDS: MAGNESIUM OXIDE 400 MG TAB PO SCH ×2 (07:54→20:22)
[2018-06-08] MEDS: CLOPIDOGREL 75 MG TABLET PO SCH (07:54)
[2018-06-08] MEDS: PROMOD 30 ML DOSE PO SCH ×2 (07:56→20:23)
[2018-06-08] MEDS: LIDOCAINE 5% PATCH TOP SCH (08:00)
[2018-06-08] MEDS: AMLODIPINE 10 MG TAB PO SCH (08:00)
[2018-06-08] MEDS: ENSURE HIGH PROTEIN 237 ML CAN PO SCH ×2 (08:00→20:00)
[2018-06-08 08:09] LABS: Blood Morphology Comment NOT SEEN (NOT SEEN); Platelet Estimate ADEQ; Urine White Blood Cell Casts OK
--- NOTE | 2018-06-08 13:16 | FAST ---
SHIFT START DATE/TIME: 06/08/2018 07:00 (CDT) SHIFT END DATE/TIME: 06/08/2018 19:00 (CDT) NAME LISS BURGESS DATE OF : 1945 DATE OF ADMISSION: 05/26/2018 16:00 (CDT) PHONE: AGE: 72 N# [id number] GENDER: Male ENCOUNTER PHYSICIAN: Dr. Harmeet Byers M.D. EATING: EATING - STEP 1: Does the patient require assistance when eating? Yes. EATING - STEP 2: Does the patient require the assistance of a helper? Yes. EATING - STEP 3: Does the patient perform half or more of the eating tasks? Yes. EATING - STEP 4: Does the patient need only supervision, cuing, coaxing OR help to apply an orthosis OR help to cut fo od, open containers, pour liquids, or butter bread? Yes. EATING - SCORE: 5-SUP GROOMING: GROOMING - STEP 1: Does the patient require assistance when grooming? Yes. GROOMING - STEP 2: Does the patient require the assistance of a helper? Yes. GROOMING - STEP 3: How much assistance does the patient require from the helper? Cuing, coaxing, instructions, or encour agement for completion of grooming GROOMING - SCORE: 5-SUP BATHING: Activity did not occur on this shift BATHING - SCORE: 0-UNK DRESSING - UPPER BODY: Activity did not occur on this shift ARTICLES SCORE Total number of steps: 0 DRESSING - UPPER BODY - SCORE: 0-UNK DRESSING - LOWER BODY: Activity did not occur on this shift ARTICLES SCORE Total number of steps: 0 DRESSING - LOWER BODY - SCORE: 0-UNK TOILETING: TOILETING - STEP 1: Does the patient require assistance with toileting? Yes. TOILETING - STEP 2: Does the patient require the assistance of a helper? Yes. TOILETING - STEP 3: How much assistance does the patient require from the helper? Hands-on assistance from the helper TOILETING - STEP 4: Of the 3 tasks: 1) Adjusting clothing prior to use, 2) Cleansing of perineal area, 3) Adjusting clot jany after use; How many tasks does the patient perform WITHOUT assistance of the helper? One task TOILETING - SCORE: 2-MAX BLADDER MANAGEMENT: BLADDER MANAGEMENT - STEP 1: Does the patient control the bladder completely and intentionally without equipment or devices or med ications, and is always continent? No. BLADDER MANAGEMENT - STEP 2: Does the patient require the assistance of a helper? No, patient requires and independently uses an a ssistive device, such as a urinal, bedpan, bedside commode, catheter, absorbent pad, or collecting de vice BLADDER MANAGEMENT - SCORE: 6-KAMERON BOWEL MANAGEMENT: Activity did not occur on this shift BOWEL MANAGEMENT - SCORE: 7-IND TRANSFERS: BED, CHAIR, WHEELCHAIR: TRANSFERS: BED, CHAIR, WHEELCHAIR - STEP 1: Does the patient require assistance with bed, chair, or wheelchair transfers? Yes. TRANSFERS: BED, CHAIR, WHEELCHAIR - STEP 2: Does the patient require the assistance of a helper? Yes. TRANSFERS: BED, CHAIR, WHEELCHAIR - STEP 3: How much assistance does the patient require from the helper? Steadying/guiding assistance TRANSFERS: BED, CHAIR, WHEELCHAIR - SCORE: 4-MIN TRANSFERS: TOILET: TRANSFERS: TOILET - STEP 1: Does the patient require assistance with toilet transfers? Yes. TRANSFERS: TOILET - STEP 2: Does the patient require the assistance of a helper? Yes. TRANSFERS: TOILET - STEP 3: How much assistance does the patient require from the helper? Patient performs half or more of the tr ansferring tasks TRANSFERS: TOILET - STEP 4: Does the patient need only incidental help such as contact guard or steadying during toilet transfer? No. Patient needs more than incidental help TRANSFERS: TOILET - SCORE: 3-MOD TRANSFERS: SHOWER: Activity did not occur on this shift TRANSFERS: SHOWER - SCORE: 0-UNK TRANSFERS: TUB: Activity did not occur on this shift TRANSFERS: TUB - SCORE: 0-UNK LOCOMOTION: WALK: Activity did not occur on this shift LOCOMOTION: WALK - SCORE: 0-UNK LOCOMOTION: WHEELCHAIR: Activity did not occur on this shift LOCOMOTION: WHEELCHAIR - SCORE: 0-UNK COMPREHENSION: COMPREHENSION: TYPE: Both COMPREHENSION - STEP 1: Does the patient require help to understand complex and abstract ideas (such as current events, finan alonso, discharge planning, medical issues, relationships, etc)? No. COMPREHENSION - STEP 2: Does the patient need extra time, require an assistive device (such as glasses for visual comprehensi on or a hearing aid for auditory comprehension) or does s/he have mild difficulty understanding compl ex and abstract information? Yes. COMPREHENSION - SCORE: 6-KAMERON EXPRESSION EXPRESSION: TYPE: Both EXPRESSION - STEP 1: Does the patient require help expressing complex and abstract ideas (such as current events, finances , discharge planning, medical issues, relationships, etc)? No. EXPRESSION - STEP 2: Does the patient need extra time, require an assistive device (such as augmentive communication syste m or a communication board), OR does s/he have mild difficulty expressing complex and abstract ideas (including mild dysarthria or mild word-find problems)? Yes. EXPRESSION - SCORE: 6-KAMERON SOCIAL INTERACTION: SOCIAL INTERACTION - STEP 1: Does the patient require a helper to interact with others in social and therapeutic situations? No. SOCIAL INTERACTION - STEP 2: Does the patient need extra time in social situations, OR does s/he interact with staff, other patien ts, and family members ONLY in structured environments, OR does s/he require medication for social in teraction? No. SOCIAL INTERACTION - SCORE: 7-IND PROBLEM SOLVING: PROBLEM SOLVING - STEP 1: Does the patient need help to solve complex problems such as managing a checking account or confronti ng interpersonal problems? No. PROBLEM SOLVING - STEP 2: Does the patient require extra time to make decisions or solve problems, OR does s/he have slight dif ficulty reading, initiating, or self-correcting in unfamiliar situations? No. PROBLEM SOLVING - SCORE: 7-IND MEMORY: MEMORY - STEP 1: Does the patient need help to remember frequently encountered people, daily routines, and executing r equests? No. MEMORY - STEP 2: Does the patient have slight difficulty recognizing frequently encountered people, daily routines, or executing requests without the need for repetition or using self-initiated or environmental cues to remember? No. MEMORY - SCORE: 7-IND SIGNATURE PANEL: The following modified sections: Eating - Score, Grooming - Score, Bathing - Score, Dressing - Upper Body - Score, Dressing - Lower Body - Score, Toileting - Score, Bladder Management - Score, Bowel Man agement - Score, Transfers: Bed, Chair, Wheelchair - Score, Transfers: Toilet - Score, Transfers: Qian wer - Score, Transfers: Tub - Score, Locomotion: Walk - Score, Locomotion: Wheelchair - Score, Compre hension - Score, Expression - Score, Social Interaction - Score, Problem Solving - Score, Memory - Sc ore were [electronically] signed by Clarence Reddy on TueJun 08 2018 13:16:05 GMT-0500 (Central Daylight Time)
[2018-06-08] MEDS: ATORVASTATIN 40 MG TAB PO SCH (20:23)
[2018-06-08] MEDS: DOCUSATE NA/SENNA CONC 1 TAB PO SCH (20:24)
[2018-06-09] MEDS: HYDROCODONE/APAP 7.5/325 MG TAB PO PRN ×2 (05:07→18:46)
[2018-06-09] MEDS: LEVOTHYROXINE SOD 0.112 MG TAB PO SCH (05:07)
[2018-06-09] MEDS: ENOXAPARIN 30 MG/0.3 ML SQ SCH (07:12)
[2018-06-09] MEDS: ENSURE HIGH PROTEIN 237 ML CAN PO SCH ×2 (08:00→20:00)
[2018-06-09] MEDS: AMLODIPINE 10 MG TAB PO SCH (08:00)
[2018-06-09] MEDS: LIDOCAINE 5% PATCH TOP SCH (08:00)
[2018-06-09] MEDS: MAGNESIUM OXIDE 400 MG TAB PO SCH ×2 (08:16→19:56)
[2018-06-09] MEDS: CLOPIDOGREL 75 MG TABLET PO SCH (08:16)
[2018-06-09] MEDS: ASPIRIN EC 81 MG TAB PO SCH (08:16)
[2018-06-09] MEDS: NICOTINE 14 MG/PAT TD SCH (08:17)
[2018-06-09] MEDS: PROMOD 30 ML DOSE PO SCH ×2 (08:17→21:21)
[2018-06-09] MEDS: GABAPENTIN 300 MG CAP PO SCH ×2 (08:17→19:53)
--- NOTE | 2018-06-09 09:26 | P.RH.PN ---
Estimated Length of Stay: 23 Expected Discharge Date: 06/17/18 Discharge Disposition Plan: Home Family Support: Yes [facility] Goal: Mobility, Transfers, Self Care Vital Signs: Last Vital Signs Temp 96.6 F L 06/09/18 06:20 Pulse 69 06/09/18 06:20 Resp 18 06/09/18 06:20 BP 111/60 06/09/18 06:20 Pulse Ox 97 06/09/18 06:20 Laboratory: Laboratory Last Values WBC 6.6 K/uL (4.3-10.9) 06/08/18 05:53 RBC 3.51 M/uL (4.33-5.43) L 06/08/18 05:53 Hgb 12.1 g/dL (13.6-17.9) L 06/08/18 05:53 Hct 34.8 % (39.6-49.0) L D 06/08/18 05:53 MCV 99.0 fL (80-100) 06/08/18 05:53 MCH 34.5 pg (27.0-35.0) 06/08/18 05:53 MCHC 34.8 g/dL (32.0-36.0) 06/08/18 05:53 RDW 12.9 % (12.1-15.2) 06/08/18 05:53 Plt Count 281 K/uL (152-406) D 06/08/18 05:53 MPV 8.5 fL (7.6-11.3) 06/08/18 05:53 Neutrophils % 61.4 % (41.7-73.7) 06/08/18 05:53 Lymphocytes % 20.0 % (15.3-44.8) 06/08/18 05:53 Monocytes % 15.1 % (3.3-12.3) H 06/08/18 05:53 Eosinophils % 2.6 % (0-4.4) 06/08/18 05:53 Basophils % 0.9 % (0-1.3) 06/08/18 05:53 Absolute Neutrophils 4.0 K/uL (1.8-8.0) 06/08/18 05:53 Absolute Lymphocytes 1.3 K/uL (0.7-4.9) 06/08/18 05:53 Absolute Monocytes 1.0 K/uL (0.1-1.3) 06/08/18 05:53 Absolute Eosinophils 0.2 K/uL (0-0.5) 06/08/18 05:53 Absolute Basophils 0.1 K/uL (0-0.5) 06/08/18 05:53 Morphology Comment Not seen (NOT SEEN) 06/08/18 05:53 Sodium 136 mmol/L (136-145) 06/08/18 05:53 Potassium 4.3 mmol/L (3.5-5.1) 06/08/18 05:53 Chloride 101 mmol/L (98-107) 06/08/18 05:53 Carbon Dioxide 31 mmol/L (21-32) 06/08/18 05:53 BUN 15 mg/dL (7-18) 06/08/18 05:53 Creatinine 1.10 mg/dL (0.55-1.3) 06/08/18 05:53 Estimated GFR 66 mL/min (=/>90) L 06/08/18 05:53 Glucose 96 mg/dL (74-106) 06/08/18 05:53 Calcium 8.3 mg/dL (8.5-10.1) L 06/08/18 05:53 Magnesium 2.7 mg/dL (1.8-2.4) H 06/01/18 06:05 Albumin 2.7 g/dL (3.4-5.0) L 06/08/18 05:53 Prealbumin 9.5 mg/dL (20-40) L 06/08/18 05:53 Urine Color Yellow 05/26/18 06:35 Urine Appearance Clear 05/26/18 06:35 Urine pH 7.5 (5.0-7.0) H 05/26/18 06:35 Ur Specific Diller <=1.005 (1.005-1.030) 05/26/18 06:35 Urine Ketones Negative (NEG) 05/26/18 06:35 Urine Blood Negative (NEG) 05/26/18 06:35 Urine Nitrite Negative (NEG) 05/26/18 06:35 Urine Bilirubin Negative (NEG) 05/26/18 06:35 Urine Urobilinogen 0.2 mg/dL (0.2-1.0) 05/26/18 06:35 Ur Leukocyte Esterase Negative (NEG) 05/26/18 06:35 Urine RBC None seen /HPF (NONE SEEN) 05/26/18 06:35 Urine WBC <5 /HPF (<5) 05/26/18 06:35 Ur Squamous Epith Cells <5 /HPF (NONE SEEN) 05/26/18 06:35 Urine Bacteria <20 /HPF (NONE SEEN) 05/26/18 06:35 Urine Culture Reflexed Not needed 05/26/18 06:35 Urine Glucose Negative (NEG) 05/26/18 06:35 Urine Total Protein Negative (NEG) 05/26/18 06:35 Weight: 204 lb Wound Present: No Closed Surgical Incision Present: No Negative Pressure Wound Therapy Present: No Physician Update: He has not been eating well and his prealbumin dropped from 19.2 on 06-01-18 to 9.5 on 06-08-18. He is now eating full meals but not taking Promod. He is doing fairly well with physical and occupational therapy. He continues to be fatigued in the right more than left upper extremity. He is able to us utensils better. His is somewhat sleepy during the day after taking melatonin at night. He continues to need moderate assistance with ambulation. [facility] Medical Issues: Cough - on Mucinex 600mg BID PRN, Robitussin 5mL Q4H PRN PO Medication Issues: Lovenox 30mg Daily SQ. Aspirin 81mg Daily PO. Plavix 75mg Daily PO Pain Issues: Kenefic 7.5/325mg Q4H PRN Functional Improvement: Patient is currently CGA w/ transfers and gait tx. Patient is SBA w/ WC mobs. Patient continues to present w/ instability during ambulation and transfers, w/ weight shift posteriorly causing LOB. Functional Improvement Occupational Therapy: PATIENT HAS STATED THAT HE IS NOT INTERESTING IN SPECIFICALLY ADDRESS SELF CARE GOALS, AND WANTS TO FOCUS SOLELY ON HAND/ARM EX TO IMPROVE STRENGTH/COORDINATION DURING HIS STAY, YET DID AGREE TO PERFORM ONE MORE SPONGE BATH/SHOWER WITH OT FOR REASSESSMENT PRIOR TO D/C. CONTINUES TO BENEFIT FROM OT HE HAS DEMONSTRATED IMPROVEMENT WITH USE OF RIGHT ARM/WRIST/HAND, HOWEVER STILL HAS DIFFICULTIES WITH MORE FINE MOTOR COORDINATION, AND PURPOSEFUL CONTROL OF ARM. Speech Therapy Update: Patient is usong speech strategirs in session with little supervision; speech intelligibility is improved to 90% on average ( reduced with fatigue). He is KAMERON with Comprehension, Memory and PS Summary: Patient's care plan and exterminator goals have been reviewed and revised as necessary. Please see the Rehabilitation Signature page for all necessary signatures.
[2018-06-09] MEDS: ATORVASTATIN 40 MG TAB PO SCH (21:23)
[2018-06-09] MEDS: DOCUSATE NA/SENNA CONC 1 TAB PO SCH (21:23)
[2018-06-10] MEDS: LEVOTHYROXINE SOD 0.112 MG TAB PO SCH (05:07)
[2018-06-10 05:35] VITALS: BMI 30.2
[2018-06-10] MEDS: ENOXAPARIN 30 MG/0.3 ML SQ SCH (06:45)
[2018-06-10] MEDS: AMLODIPINE 10 MG TAB PO SCH (08:00)
[2018-06-10] MEDS: ENSURE HIGH PROTEIN 237 ML CAN PO SCH ×2 (08:00→20:00)
[2018-06-10] MEDS: LIDOCAINE 5% PATCH TOP SCH (08:00)
[2018-06-10] MEDS: FE SULF/FA/VIT B COMP & C TAB PO SCH (08:18)
[2018-06-10] MEDS: CLOPIDOGREL 75 MG TABLET PO SCH (08:18)
[2018-06-10] MEDS: ASPIRIN EC 81 MG TAB PO SCH (08:18)
[2018-06-10] MEDS: GABAPENTIN 300 MG CAP PO SCH ×2 (08:18→19:33)
[2018-06-10] MEDS: FERROUS SULFATE 325 MG TAB PO SCH (08:18)
[2018-06-10] MEDS: MAGNESIUM OXIDE 400 MG TAB PO SCH ×2 (08:18→19:33)
[2018-06-10] MEDS: HYDROCODONE/APAP 7.5/325 MG TAB PO PRN ×2 (08:19→18:58)
[2018-06-10] MEDS: NICOTINE 14 MG/PAT TD SCH (09:15)
[2018-06-10] MEDS: PROMOD 30 ML DOSE PO SCH ×2 (09:16→19:32)
[2018-06-10] MEDS: GUAIFENESIN/CODEINE 5ML UCUP PO PRN ×2 (09:19→18:58)
[2018-06-10] MEDS: ATORVASTATIN 40 MG TAB PO SCH (20:27)
[2018-06-10] MEDS: DOCUSATE NA/SENNA CONC 1 TAB PO SCH (20:28)
--- NOTE | 2018-06-11 02:35 | FAST ---
SHIFT START DATE/TIME: 06/10/2018 19:00 (CDT) SHIFT END DATE/TIME: 06/11/2018 07:00 (CDT) NAME LISS BURGESS DATE OF : 1945 DATE OF ADMISSION: 05/26/2018 16:00 (CDT) PHONE: AGE: 72 N# [id number] GENDER: Male ENCOUNTER PHYSICIAN: Dr. Harmeet Byers M.D. EATING: Activity did not occur on this shift EATING - SCORE: 0-UNK GROOMING: Activity did not occur on this shift GROOMING - SCORE: 0-UNK BATHING: Activity did not occur on this shift BATHING - SCORE: 0-UNK DRESSING - UPPER BODY: Patient is not dressing in public clothing ARTICLES SCORE Total number of steps: 0 DRESSING - UPPER BODY - SCORE: 0-UNK DRESSING - LOWER BODY: Patient is not dressing in public clothing ARTICLES SCORE Total number of steps: 0 DRESSING - LOWER BODY - SCORE: 0-UNK TOILETING: TOILETING - STEP 1: Does the patient require assistance with toileting? Yes. TOILETING - STEP 2: Does the patient require the assistance of a helper? Yes. TOILETING - STEP 3: How much assistance does the patient require from the helper? Hands-on assistance from the helper TOILETING - STEP 4: Of the 3 tasks: 1) Adjusting clothing prior to use, 2) Cleansing of perineal area, 3) Adjusting clot jany after use; How many tasks does the patient perform WITHOUT assistance of the helper? No tasks; h elper performs all three tasks TOILETING - SCORE: 1-DEP BLADDER MANAGEMENT: BLADDER MANAGEMENT - STEP 1: Does the patient control the bladder completely and intentionally without equipment or devices or med ications, and is always continent? No. BLADDER MANAGEMENT - STEP 2: Does the patient require the assistance of a helper? Yes. BLADDER MANAGEMENT - STEP 3: How much assistance does the patient require from the helper? Patient requires contact assistance fro m the helper BLADDER MANAGEMENT - STEP 4: How much contact assistance does the patient require from the helper? Patient requires minimal assist ance to maintain an external device - by positioning, and the patient performs 75% or more of bladder management tasks, while the helper provides less than 25% of the assistance to position patient on / off bedpan BLADDER MANAGEMENT - SCORE: 4-MIN BOWEL MANAGEMENT: Activity did not occur on this shift BOWEL MANAGEMENT - SCORE: 7-IND TRANSFERS: BED, CHAIR, WHEELCHAIR: TRANSFERS: BED, CHAIR, WHEELCHAIR - STEP 1: Does the patient require assistance with bed, chair, or wheelchair transfers? Yes. TRANSFERS: BED, CHAIR, WHEELCHAIR - STEP 2: Does the patient require the assistance of a helper? Yes. TRANSFERS: BED, CHAIR, WHEELCHAIR - STEP 3: How much assistance does the patient require from the helper? Steadying/guiding assistance TRANSFERS: BED, CHAIR, WHEELCHAIR - SCORE: 4-MIN TRANSFERS: TOILET: TRANSFERS: TOILET - STEP 1: Does the patient require assistance with toilet transfers? Yes. TRANSFERS: TOILET - STEP 2: Does the patient require the assistance of a helper? Yes. TRANSFERS: TOILET - STEP 3: How much assistance does the patient require from the helper? Patient performs half or more of the tr ansferring tasks TRANSFERS: TOILET - STEP 4: Does the patient need only incidental help such as contact guard or steadying during toilet transfer? Yes. TRANSFERS: TOILET - SCORE: 4-MIN TRANSFERS: SHOWER: Activity did not occur on this shift TRANSFERS: SHOWER - SCORE: 0-UNK TRANSFERS: TUB: Activity did not occur on this shift TRANSFERS: TUB - SCORE: 0-UNK LOCOMOTION: WALK: Activity did not occur on this shift LOCOMOTION: WALK - SCORE: 0-UNK LOCOMOTION: WHEELCHAIR: Activity did not occur on this shift LOCOMOTION: WHEELCHAIR - SCORE: 0-UNK COMPREHENSION: COMPREHENSION: TYPE: Both COMPREHENSION - STEP 1: Does the patient require help to understand complex and abstract ideas (such as current events, finan alonso, discharge planning, medical issues, relationships, etc)? No. COMPREHENSION - STEP 2: Does the patient need extra time, require an assistive device (such as glasses for visual comprehensi on or a hearing aid for auditory comprehension) or does s/he have mild difficulty understanding compl ex and abstract information? Yes. COMPREHENSION - SCORE: 6-KAMERON EXPRESSION EXPRESSION: TYPE: Both EXPRESSION - STEP 1: Does the patient require help expressing complex and abstract ideas (such as current events, finances , discharge planning, medical issues, relationships, etc)? No. EXPRESSION - STEP 2: Does the patient need extra time, require an assistive device (such as augmentive communication syste m or a communication board), OR does s/he have mild difficulty expressing complex and abstract ideas (including mild dysarthria or mild word-find problems)? Yes. EXPRESSION - SCORE: 6-KAMERON SOCIAL INTERACTION: SOCIAL INTERACTION - STEP 1: Does the patient require a helper to interact with others in social and therapeutic situations? No. SOCIAL INTERACTION - STEP 2: Does the patient need extra time in social situations, OR does s/he interact with staff, other patien ts, and family members ONLY in structured environments, OR does s/he require medication for social in teraction? Yes, patient needs extra time SOCIAL INTERACTION - SCORE: 6-KAMERON PROBLEM SOLVING: PROBLEM SOLVING - STEP 1: Does the patient need help to solve complex problems such as managing a checking account or confronti ng interpersonal problems? No. PROBLEM SOLVING - STEP 2: Does the patient require extra time to make decisions or solve problems, OR does s/he have slight dif ficulty reading, initiating, or self-correcting in unfamiliar situations? Yes, patient needs extra ti me. PROBLEM SOLVING - SCORE: 6-KAMERON MEMORY: MEMORY - STEP 1: Does the patient need help to remember frequently encountered people, daily routines, and executing r equests? No. MEMORY - STEP 2: Does the patient have slight difficulty recognizing frequently encountered people, daily routines, or executing requests without the need for repetition or using self-initiated or environmental cues to remember? Yes. MEMORY - SCORE: 6-KAMERON SIGNATURE PANEL: The following modified sections: Eating - Score, Grooming - Score, Dressing - Upper Body - Score, Kash ssing - Lower Body - Score, Toileting - Score, Bladder Management - Score, Bowel Management - Score, Transfers: Bed, Chair, Wheelchair - Score, Transfers: Toilet - Score, Transfers: Shower - Score, Agosto sfers: Tub - Score, Locomotion: Walk - Score, Locomotion: Wheelchair - Score, Comprehension - Score, Expression - Score, Social Interaction - Score, Problem Solving - Score, Memory - Score were [electro nically] signed by Susie Pate CNA on TueJun 11 2018 02:34:10 GMT-0500 (Central Daylight Time)
[2018-06-11] MEDS: LEVOTHYROXINE SOD 0.112 MG TAB PO SCH (05:26)
[2018-06-11] MEDS: ENOXAPARIN 30 MG/0.3 ML SQ SCH (07:00)
[2018-06-11] MEDS: NICOTINE 14 MG/PAT TD SCH (07:00)
[2018-06-11] MEDS: ENSURE HIGH PROTEIN 237 ML CAN PO SCH ×2 (08:00→20:00)
[2018-06-11] MEDS: LIDOCAINE 5% PATCH TOP SCH (08:00)
[2018-06-11] MEDS: GABAPENTIN 300 MG CAP PO SCH ×2 (08:09→21:37)
[2018-06-11] MEDS: FE SULF/FA/VIT B COMP & C TAB PO SCH (08:10)
[2018-06-11] MEDS: MAGNESIUM OXIDE 400 MG TAB PO SCH ×2 (08:10→21:37)
[2018-06-11] MEDS: ASPIRIN EC 81 MG TAB PO SCH (08:10)
[2018-06-11] MEDS: CLOPIDOGREL 75 MG TABLET PO SCH (08:10)
[2018-06-11] MEDS: AMLODIPINE 5 MG TAB PO SCH (08:10)
[2018-06-11] MEDS: FERROUS SULFATE 325 MG TAB PO SCH (08:11)
[2018-06-11] MEDS: GUAIFENESIN/CODEINE 5ML UCUP PO PRN ×2 (08:15→16:57)
[2018-06-11] MEDS: HYDROCODONE/APAP 7.5/325 MG TAB PO PRN ×3 (08:15→21:41)
[2018-06-11] MEDS: PROMOD 30 ML DOSE PO SCH ×2 (09:28→21:35)
[2018-06-11] MEDS: DOCUSATE NA/SENNA CONC 1 TAB PO SCH (21:36)
[2018-06-11] MEDS: ATORVASTATIN 40 MG TAB PO SCH (21:36)
[2018-06-12] MEDS: GUAIFENESIN/CODEINE 5ML UCUP PO PRN ×3 (01:23→20:15)
[2018-06-12] MEDS: LEVOTHYROXINE SOD 0.112 MG TAB PO SCH (05:15)
[2018-06-12] MEDS: HYDROCODONE/APAP 7.5/325 MG TAB PO PRN ×2 (07:34→18:40)
[2018-06-12] MEDS: ENOXAPARIN 30 MG/0.3 ML SQ SCH (07:34)
[2018-06-12] MEDS: AMLODIPINE 5 MG TAB PO SCH (07:34)
[2018-06-12] MEDS: FE SULF/FA/VIT B COMP & C TAB PO SCH (07:35)
[2018-06-12] MEDS: LIDOCAINE 5% PATCH TOP SCH (07:35)
[2018-06-12] MEDS: PROMOD 30 ML DOSE PO SCH ×2 (07:35→20:14)
[2018-06-12] MEDS: ENSURE HIGH PROTEIN 237 ML CAN PO SCH ×2 (07:35→20:00)
[2018-06-12] MEDS: MAGNESIUM OXIDE 400 MG TAB PO SCH ×2 (07:35→20:15)
[2018-06-12] MEDS: ASPIRIN EC 81 MG TAB PO SCH (07:35)
[2018-06-12] MEDS: FERROUS SULFATE 325 MG TAB PO SCH (07:35)
[2018-06-12] MEDS: CLOPIDOGREL 75 MG TABLET PO SCH (07:35)
[2018-06-12] MEDS: GABAPENTIN 300 MG CAP PO SCH ×2 (07:40→20:15)
[2018-06-12] MEDS: NICOTINE 14 MG/PAT TD SCH (09:12)
--- NOTE | 2018-06-12 10:05 | FAST ---
SHIFT START DATE/TIME: 06/12/2018 07:00 (CDT) SHIFT END DATE/TIME: 06/12/2018 19:00 (CDT) NAME LISS BURGESS DATE OF : 1945 DATE OF ADMISSION: 05/26/2018 16:00 (CDT) PHONE: AGE: 72 N# [id number] GENDER: Male ENCOUNTER PHYSICIAN: Dr. Harmeet Byers M.D. EATING: EATING - STEP 1: Does the patient require assistance when eating? Yes. EATING - STEP 2: Does the patient require the assistance of a helper? Yes. EATING - STEP 3: Does the patient perform half or more of the eating tasks? Yes. EATING - STEP 4: Does the patient need only supervision, cuing, coaxing OR help to apply an orthosis OR help to cut fo od, open containers, pour liquids, or butter bread? Yes. EATING - SCORE: 5-SUP GROOMING: Comb/brush hair Oral care Patient applied make-up Wash, rinse, and dry face Wash, rinse, and dry hands GROOMING - STEP 1: Does the patient require assistance when grooming? Yes. GROOMING - STEP 2: Does the patient require the assistance of a helper? Yes. GROOMING - STEP 3: How much assistance does the patient require from the helper? Cuing, coaxing, instructions, or encour agement for completion of grooming GROOMING - SCORE: 5-SUP BATHING: Activity did not occur on this shift BATHING - SCORE: 0-UNK DRESSING - UPPER BODY: Activity did not occur on this shift ARTICLES SCORE Total number of steps: 0 DRESSING - UPPER BODY - SCORE: 0-UNK DRESSING - LOWER BODY: Activity did not occur on this shift ARTICLES SCORE Total number of steps: 0 DRESSING - LOWER BODY - SCORE: 0-UNK TOILETING: TOILETING - STEP 1: Does the patient require assistance with toileting? Yes. TOILETING - STEP 2: Does the patient require the assistance of a helper? Yes. TOILETING - STEP 3: How much assistance does the patient require from the helper? Hands-on assistance from the helper TOILETING - STEP 4: Of the 3 tasks: 1) Adjusting clothing prior to use, 2) Cleansing of perineal area, 3) Adjusting clot jany after use; How many tasks does the patient perform WITHOUT assistance of the helper? Two tasks TOILETING - SCORE: 3-MOD BLADDER MANAGEMENT: BLADDER MANAGEMENT - STEP 1: Does the patient control the bladder completely and intentionally without equipment or devices or med ications, and is always continent? No. BLADDER MANAGEMENT - STEP 2: Does the patient require the assistance of a helper? No, patient requires and independently uses an a ssistive device, such as a urinal, bedpan, bedside commode, catheter, absorbent pad, or collecting de vice BLADDER MANAGEMENT - SCORE: 6-KAMERON BOWEL MANAGEMENT: BOWEL MANAGEMENT - STEP 1: Does the patient control bowels completely and intentionally without equipment devices or medications AND is always continent? No. BOWEL MANAGEMENT - STEP 2: Does the patient require the assistance of a helper? No, patient requires and manages independently a n assistive device such as a bedpan, bedside commode, absorbent pad, incontinent device, or collectin g device BOWEL MANAGEMENT - SCORE: 6-KAMERON TRANSFERS: BED, CHAIR, WHEELCHAIR: TRANSFERS: BED, CHAIR, WHEELCHAIR - STEP 1: Does the patient require assistance with bed, chair, or wheelchair transfers? Yes. TRANSFERS: BED, CHAIR, WHEELCHAIR - STEP 2: Does the patient require the assistance of a helper? Yes. TRANSFERS: BED, CHAIR, WHEELCHAIR - STEP 3: How much assistance does the patient require from the helper? Steadying/guiding assistance TRANSFERS: BED, CHAIR, WHEELCHAIR - SCORE: 4-MIN TRANSFERS: TOILET: TRANSFERS: TOILET - STEP 1: Does the patient require assistance with toilet transfers? Yes. TRANSFERS: TOILET - STEP 2: Does the patient require the assistance of a helper? Yes. TRANSFERS: TOILET - STEP 3: How much assistance does the patient require from the helper? Patient performs half or more of the tr ansferring tasks TRANSFERS: TOILET - STEP 4: Does the patient need only incidental help such as contact guard or steadying during toilet transfer? Yes. TRANSFERS: TOILET - SCORE: 4-MIN TRANSFERS: SHOWER: TRANSFERS: SHOWER - STEP 1: Does the patient require assistance with shower transfers? Yes. TRANSFERS: SHOWER - STEP 2: Does the patient require the assistance of a helper? No. The patient only uses an assistive device, t akes more than reasonable time, OR there is a concern for safety when s/he performs transfers. TRANSFERS: SHOWER - SCORE: 6-KAMERON TRANSFERS: TUB: Activity did not occur on this shift TRANSFERS: TUB - SCORE: 0-UNK LOCOMOTION: WALK: Activity did not occur on this shift LOCOMOTION: WALK - SCORE: 0-UNK LOCOMOTION: WHEELCHAIR: Activity did not occur on this shift LOCOMOTION: WHEELCHAIR - SCORE: 0-UNK COMPREHENSION: COMPREHENSION: TYPE: Both COMPREHENSION - STEP 1: Does the patient require help to understand complex and abstract ideas (such as current events, finan alonso, discharge planning, medical issues, relationships, etc)? No. COMPREHENSION - STEP 2: Does the patient need extra time, require an assistive device (such as glasses for visual comprehensi on or a hearing aid for auditory comprehension) or does s/he have mild difficulty understanding compl ex and abstract information? Yes. COMPREHENSION - SCORE: 6-KAMERON EXPRESSION EXPRESSION: TYPE: Both EXPRESSION - STEP 1: Does the patient require help expressing complex and abstract ideas (such as current events, finances , discharge planning, medical issues, relationships, etc)? No. EXPRESSION - STEP 2: Does the patient need extra time, require an assistive device (such as augmentive communication syste m or a communication board), OR does s/he have mild difficulty expressing complex and abstract ideas (including mild dysarthria or mild word-find problems)? Yes. EXPRESSION - SCORE: 6-KAMERON SOCIAL INTERACTION: SOCIAL INTERACTION - STEP 1: Does the patient require a helper to interact with others in social and therapeutic situations? No. SOCIAL INTERACTION - STEP 2: Does the patient need extra time in social situations, OR does s/he interact with staff, other patien ts, and family members ONLY in structured environments, OR does s/he require medication for social in teraction? Yes, patient needs extra time SOCIAL INTERACTION - SCORE: 6-KAMERON PROBLEM SOLVING: PROBLEM SOLVING - STEP 1: Does the patient need help to solve complex problems such as managing a checking account or confronti ng interpersonal problems? No. PROBLEM SOLVING - STEP 2: Does the patient require extra time to make decisions or solve problems, OR does s/he have slight dif ficulty reading, initiating, or self-correcting in unfamiliar situations? Yes, patient needs extra ti me. PROBLEM SOLVING - SCORE: 6-KAMERON MEMORY: MEMORY - STEP 1: Does the patient need help to remember frequently encountered people, daily routines, and executing r equests? No. MEMORY - STEP 2: Does the patient have slight difficulty recognizing frequently encountered people, daily routines, or executing requests without the need for repetition or using self-initiated or environmental cues to remember? Yes. MEMORY - SCORE: 6-KAMERON SIGNATURE PANEL: The following modified sections: Eating - Score, Grooming - Score, Bathing - Score, Dressing - Upper Body - Score, Dressing - Lower Body - Score, Toileting - Score, Bladder Management - Score, Bowel Man agement - Score, Transfers: Bed, Chair, Wheelchair - Score, Transfers: Toilet - Score, Transfers: Qian wer - Score, Transfers: Tub - Score, Locomotion: Walk - Score, Locomotion: Wheelchair - Score, Compre hension - Score, Expression - Score, Social Interaction - Score, Problem Solving - Score, Memory - Sc ore were [electronically] signed by Clarence Reddy on TueJun 12 2018 10:04:00 GMT-0500 (Central Daylight Time)
--- NOTE | 2018-06-12 14:03 | FAST ---
ENCOUNTER DATE AND TIME: 06/12/2018 08:00 (CDT) NAME LISS BURGESS DATE OF : 1945 DATE OF ADMISSION: 05/26/2018 16:00 (CDT) PHONE: AGE: 72 SSN# [id number] GENDER: Male ENCOUNTER PHYSICIAN: Dr. Harmeet Byers M.D. EATING: Activity did not occur on this shift EATING - SCORE: 0-UNK GROOMING: Activity did not occur on this shift GROOMING - SCORE: 0-UNK BATHING: Activity did not occur on this shift BATHING - SCORE: 0-UNK DRESSING - UPPER BODY: Activity did not occur on this shift ARTICLES SCORE Total number of steps: 0 DRESSING - UPPER BODY - SCORE: 0-UNK DRESSING - LOWER BODY: Activity did not occur on this shift ARTICLES SCORE Total number of steps: 0 DRESSING - LOWER BODY - SCORE: 0-UNK TOILETING: TOILETING - STEP 1: Does the patient require assistance with toileting? Yes. TOILETING - STEP 2: Does the patient require the assistance of a helper? Yes. TOILETING - STEP 3: How much assistance does the patient require from the helper? Hands-on assistance from the helper TOILETING - STEP 4: Of the 3 tasks: 1) Adjusting clothing prior to use, 2) Cleansing of perineal area, 3) Adjusting clot jany after use; How many tasks does the patient perform WITHOUT assistance of the helper? Three tasks with steadying assistance from the helper TOILETING - SCORE: 4-MIN BLADDER MANAGEMENT: Activity did not occur on this shift BLADDER MANAGEMENT - SCORE: 7-IND BOWEL MANAGEMENT: Activity did not occur on this shift BOWEL MANAGEMENT - SCORE: 7-IND TRANSFERS: BED, CHAIR, WHEELCHAIR: Activity did not occur on this shift TRANSFERS: BED, CHAIR, WHEELCHAIR - SCORE: 0-UNK TRANSFERS: TOILET: Activity did not occur on this shift TRANSFERS: TOILET - SCORE: 0-UNK TRANSFERS: SHOWER: Activity did not occur on this shift TRANSFERS: SHOWER - SCORE: 0-UNK TRANSFERS: TUB: Activity did not occur on this shift TRANSFERS: TUB - SCORE: 0-UNK LOCOMOTION: WALK: Activity did not occur on this shift LOCOMOTION: WALK - SCORE: 0-UNK LOCOMOTION: WHEELCHAIR: Activity did not occur on this shift LOCOMOTION: WHEELCHAIR - SCORE: 0-UNK LOCOMOTION: STAIRS: Activity did not occur on this shift LOCOMOTION: STAIRS - SCORE: 0-UNK COMPREHENSION: COMPREHENSION - SCORE: 0-UNK EXPRESSION EXPRESSION - SCORE: 0-UNK SOCIAL INTERACTION: SOCIAL INTERACTION - SCORE: 0-UNK PROBLEM SOLVING: PROBLEM SOLVING - SCORE: 0-UNK MEMORY: MEMORY - SCORE: 0-UNK SIGNATURE PANEL: The following modified sections: Eating - Score, Grooming - Score, Bathing - Score, Dressing - Upper Body - Score, Dressing - Lower Body - Score, Toileting - Score, Transfers: Bed, Chair, Wheelchair - S core, Transfers: Toilet - Score, Transfers: Shower - Score, Transfers: Tub - Score, Comprehension - S core, Expression - Score, Social Interaction - Score, Problem Solving - Score, Memory - Score were [e lectronically] signed by JOSIE Celis on TueJun 12 2018 14:03:13 [facility]-0500 ([facility])
--- NOTE | 2018-06-12 14:28 | FAST ---
ENCOUNTER DATE AND TIME: 06/12/2018 08:00 (CDT) NAME LISS BURGESS DATE OF : 1945 DATE OF ADMISSION: 05/26/2018 16:00 (CDT) PHONE: AGE: 72 SSN# [id number] GENDER: Male ENCOUNTER PHYSICIAN: Dr. Harmeet Byers M.D. EATING: Activity did not occur on this shift EATING - SCORE: 0-UNK GROOMING: Activity did not occur on this shift GROOMING - SCORE: 0-UNK BATHING: Activity did not occur on this shift BATHING - SCORE: 0-UNK DRESSING - UPPER BODY: Activity did not occur on this shift Patient is not dressing in public clothing ARTICLES SCORE Total number of steps: 0 DRESSING - UPPER BODY - SCORE: 0-UNK DRESSING - LOWER BODY: Activity did not occur on this shift Patient is not dressing in public clothing ARTICLES SCORE Total number of steps: 0 DRESSING - LOWER BODY - SCORE: 0-UNK TOILETING: Activity did not occur on this shift TOILETING - SCORE: 0-UNK BLADDER MANAGEMENT: Activity did not occur on this shift BLADDER MANAGEMENT - SCORE: 7-IND BOWEL MANAGEMENT: Activity did not occur on this shift BOWEL MANAGEMENT - SCORE: 7-IND TRANSFERS: BED, CHAIR, WHEELCHAIR: TRANSFERS: BED, CHAIR, WHEELCHAIR - STEP 1: Does the patient require assistance with bed, chair, or wheelchair transfers? Yes. TRANSFERS: BED, CHAIR, WHEELCHAIR - STEP 2: Does the patient require the assistance of a helper? Yes. TRANSFERS: BED, CHAIR, WHEELCHAIR - STEP 3: How much assistance does the patient require from the helper? Steadying/guiding assistance TRANSFERS: BED, CHAIR, WHEELCHAIR - SCORE: 4-MIN TRANSFERS: TOILET: Activity did not occur on this shift TRANSFERS: TOILET - SCORE: 0-UNK TRANSFERS: SHOWER: Activity did not occur on this shift TRANSFERS: SHOWER - SCORE: 0-UNK TRANSFERS: TUB: Activity did not occur on this shift TRANSFERS: TUB - SCORE: 0-UNK LOCOMOTION: WALK: LOCOMOTION: WALK - STEP 1: Does the patient need help to walk 150 feet? Yes. LOCOMOTION: WALK - STEP 2: How much assistance does the patient require to walk a minimum of 150 feet? Only incidental help such as contact guarding or steadying LOCOMOTION: WALK - SCORE: 4-MIN LOCOMOTION: WHEELCHAIR: LOCOMOTION: WHEELCHAIR - STEP 1: Does the patient need help to go 150 feet in a wheelchair? Yes. LOCOMOTION: WHEELCHAIR - STEP 2: How much assistance does the patient need from the helper? Only supervision, cuing, or coaxing LOCOMOTION: WHEELCHAIR - SCORE: 5-SUP LOCOMOTION: STAIRS: Activity did not occur on this shift LOCOMOTION: STAIRS - SCORE: 0-UNK COMPREHENSION: COMPREHENSION - SCORE: 0-UNK EXPRESSION EXPRESSION - SCORE: 0-UNK SOCIAL INTERACTION: SOCIAL INTERACTION - SCORE: 0-UNK PROBLEM SOLVING: PROBLEM SOLVING - SCORE: 0-UNK MEMORY: MEMORY - SCORE: 0-UNK SIGNATURE PANEL: The following modified sections: Transfers: Bed, Chair, Wheelchair - Score, Transfers: Toilet - Score , Locomotion: Walk - Score, Locomotion: Wheelchair - Score, Locomotion: Stairs - Score were [electron kathi] signed by Kevin Burnette PTA on TueJun 12 2018 14:27:56 T-0500 (Central Daylight Time)
--- NOTE | 2018-06-12 19:18 | R.PN ---
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 Pt denied any depression. Self-propelled wheelchair 500' with standby assistance. Ambulated using a rolling walker 500' with standby assistance. VITAL SIGNS Temperature: 97.8 F SBP/DBP: 118/68 Pulse: 66 Resp: 15 MEDICATION ALLERGIES: No Known Drug Allergies (NKDA) ENVIRONMENTAL ALLERGIES: - Substance Allergies None Known - Other Allergies None Known NURSING: - Shower allowing shower - Bladder care per protocol - Skin care per protocol PRECAUTIONS: - Weight Bearing Precaution WBAT right LE ACTIVITIES OOB only with supervision THERAPIES: - Occupational Therapy Evaluate and Treat. Cognitive Retraining. Visual Perceptual Training. - Speech Therapy Memory Strategies. Expressive Language Skills. Speech Intelligibility Training. Cognitive Training. R eceptive Language Skills. - Physical Therapy Evaluate and Treat. PHYSICAL EXAM - Gen Alert and awake Lying in bed No apparent distress Oriented to: person, time, and place - Skin No breakdowns Right facial numbness and mild weakness with slurred speech. Cleared for thin and thick liquids - Eyes No abnormalities - ENMT No abnormalities - Neck No abnormalities - CVS RRR - Chest No abnormalities - Resp Clear to auscultation - Abd + bowel sounds - GI Soft Deferred - No abnormalities - Ext No significant edema - MSK 3-4/5 weakness in right upper and 4+/5 in right lower extremity - Neuro 3-4/5 weakness in the right upper and lower extremities. Decrease to touch and temperature in right u pper and lower extremities. - Psych No abnormalities ASSESSMENT: Pt. is a 72 yo Right-handed white male.On 05/23/2018 Pt. presented to [facility] with sudde n onset of right-side weakness.On 05/23/2018 he was admitted to [facility] with diagnosis l eft basal ganglia posterior limb.His impairment category is Stroke 01 - Right Body (Left Brain) (01. 2).Pre-morbidly, Pt. was independent/mod-I in Communication, Social Cognition, Self-Care, Sphincter C ontrol, Transfers Control, and Locomotion; and he had good Sphincter Control.Currently, he has defici ts of Communication, Social Cognition, Balance, Self-Care, Endurance, Safety Awareness, Transfers Con trol, and Locomotion.Pt. is now referred to [facility] for acute in-patient re habilitation in order to maximize patient's functional independence in activities of daily living, st rength, ROM, and mobility.- Rehab Goal Patient has realistic goal of being discharged at assistance level 6-Vi to reside at Home with Fam amena/Relatives. MDM/PLAN: - Physical Therapy Gait dysfunction - to improve, our physical therapists will perform initial evaluation of pt's statu s upon admission and devise an individualized program for Gait Training, and Wheel Chair mobility Inability to transfer - to improve, our physical therapists will perform initial evaluation of pt's status upon admission and devise an individualized program for Bed mobility Need for home safety evaluation - to improve, our physical therapists will perform initial evaluatio n of pt's status upon admission and devise an individualized program for Home Evaluation Need in caregiver upon discharge - to improve, our physical therapists will perform initial evaluati on of pt's status upon admission and devise an individualized program for Caregiver Training Edema - to improve, our physical therapists will perform initial evaluation of pt's status upon admi ssion and devise an individualized program for Elevation Training, and Lymphedema Therapy New precaution - to improve, our physical therapists will perform initial evaluation of pt's status upon admission and devise an individualized program for Patient precaution education Poor balance - to improve, our physical therapists will perform initial evaluation of pt's status up on admission and devise an individualized program for Balance Training Poor endurance - to improve, our physical therapists will perform initial evaluation of pt's status upon admission and devise an individualized program for Endurance Training Weakness - to improve, our physical therapists will perform initial evaluation of pt's status upon a dmission and devise an individualized program for Aquatic Therapy, Neuromuscular Reeducation, and Str engthening Achieving independence - to improve, our physical therapists will perform initial evaluation of pt's status upon admission and devise an individualized program for Community Reintegration Activities - Occupational Therapy ADL deficits - to improve, our occupation therapists will perform initial evaluation of pt's status upon admission and devise an individualized program for Bathing, Bed mobility, Community Reintegratio n, Cooking, Dressing, Eating, Fine Motor Skills, Grooming, Homemaking, Kitchen Mobility, Laundry, Pat ient Education, Safety Awareness, Splinting - Positioning, Transfers(Toilet, Tub, Shower), and Wheel Chair Management Cognitive deficits - to improve, our occupation therapists will perform initial evaluation of pt's s tatus upon admission and devise an individualized program for Cognition - orientation Need for care professionals - to improve, our occupation therapists will perform initial evaluation of pt's status upon admission and devise an individualized program for Caregiver Training Weakness - to improve, our occupation therapists will perform initial evaluation of pt's status upon admission and devise an individualized program for Aquatic Therapy, Balance, Endurance, UE ROM, and UE strengthening - Diet Type Continue Regular - Diet - Liquid Texture Continue Regular - Tube Feed Continue N/A - Bladder care per protocol - Weight Bearing Precaution WBAT right LE - Skin care per protocol - Diet - Solid Texture Continue Regular Continue Mechanical Soft - Shower allowing shower for Dementia, TBI, Stroke, or others FUNCTIONAL STATUS: UPDATED AT WEEKLY TEAM CONFERENCE - Bladder Same accident frequency: 7-Ind - No accidents in the past 7 days - Bowel Same accident frequency: 7-Ind - No accidents in the past 7 days - Walking Same score based on distance walked: 0(N/A) FUNCTIONAL STATUS: - Self-Care A. Eating Carli B. Grooming Carli C. Bathing modA D. Dressing - Upper Caril E. Dressing - Lower modA F. Toileting modA - Sphincter Control G: Bladder control Ind H: Bowel control Ind - Transfers Control I. Bed/Chair/Wheelchair modA J. Toilet modA K. Tub/Shower modA - Locomotion L. Walk/Wheelchair (B) Dep - Communication N. Comprehension (B) Carli O. Expression (B) sup - Social Cognition P. Social Interaction sup Q. Problem Solving sup R. Memory Carli - Endurance Poor - Balance Poor - Safety Awareness Poor CURRENT FUNC. DEFICITS: Communication, Social Cognition, Balance, Self-Care, Endurance, Safety Awareness, Transfers Control, and Locomotion SIGNATURE PANEL: (CDT)
[2018-06-12] MEDS: DOCUSATE NA/SENNA CONC 1 TAB PO SCH (20:15)
[2018-06-12] MEDS: ATORVASTATIN 40 MG TAB PO SCH (20:15)
--- NOTE | 2018-06-13 02:52 | FAST ---
SHIFT START DATE/TIME: 06/12/2018 19:00 (CDT) SHIFT END DATE/TIME: 06/13/2018 07:00 (CDT) NAME LISS BURGESS DATE OF : 1945 DATE OF ADMISSION: 05/26/2018 16:00 (CDT) PHONE: AGE: 72 N# [id number] GENDER: Male ENCOUNTER PHYSICIAN: Dr. Harmeet Byers M.D. EATING: Activity did not occur on this shift EATING - SCORE: 0-UNK GROOMING: Activity did not occur on this shift GROOMING - SCORE: 0-UNK BATHING: Activity did not occur on this shift BATHING - SCORE: 0-UNK DRESSING - UPPER BODY: Patient is not dressing in public clothing ARTICLES SCORE Total number of steps: 0 DRESSING - UPPER BODY - SCORE: 0-UNK DRESSING - LOWER BODY: Patient is not dressing in public clothing ARTICLES SCORE Total number of steps: 0 DRESSING - LOWER BODY - SCORE: 0-UNK TOILETING: TOILETING - STEP 1: Does the patient require assistance with toileting? Yes. TOILETING - STEP 2: Does the patient require the assistance of a helper? Yes. TOILETING - STEP 3: How much assistance does the patient require from the helper? Hands-on assistance from the helper TOILETING - STEP 4: Of the 3 tasks: 1) Adjusting clothing prior to use, 2) Cleansing of perineal area, 3) Adjusting clot jany after use; How many tasks does the patient perform WITHOUT assistance of the helper? No tasks; h elper performs all three tasks TOILETING - SCORE: 1-DEP BLADDER MANAGEMENT: BLADDER MANAGEMENT - STEP 1: Does the patient control the bladder completely and intentionally without equipment or devices or med ications, and is always continent? No. BLADDER MANAGEMENT - STEP 2: Does the patient require the assistance of a helper? Yes. BLADDER MANAGEMENT - STEP 3: How much assistance does the patient require from the helper? Patient requires contact assistance fro m the helper BLADDER MANAGEMENT - STEP 4: How much contact assistance does the patient require from the helper? Patient requires minimal assist ance to maintain an external device - by positioning, and the patient performs 75% or more of bladder management tasks, while the helper provides less than 25% of the assistance to position patient on / off bedpan BLADDER MANAGEMENT - SCORE: 4-MIN BOWEL MANAGEMENT: Activity did not occur on this shift BOWEL MANAGEMENT - SCORE: 7-IND TRANSFERS: BED, CHAIR, WHEELCHAIR: TRANSFERS: BED, CHAIR, WHEELCHAIR - STEP 1: Does the patient require assistance with bed, chair, or wheelchair transfers? Yes. TRANSFERS: BED, CHAIR, WHEELCHAIR - STEP 2: Does the patient require the assistance of a helper? Yes. TRANSFERS: BED, CHAIR, WHEELCHAIR - STEP 3: How much assistance does the patient require from the helper? Steadying/guiding assistance TRANSFERS: BED, CHAIR, WHEELCHAIR - SCORE: 4-MIN TRANSFERS: TOILET: TRANSFERS: TOILET - STEP 1: Does the patient require assistance with toilet transfers? Yes. TRANSFERS: TOILET - STEP 2: Does the patient require the assistance of a helper? Yes. TRANSFERS: TOILET - STEP 3: How much assistance does the patient require from the helper? Patient performs half or more of the tr ansferring tasks TRANSFERS: TOILET - STEP 4: Does the patient need only incidental help such as contact guard or steadying during toilet transfer? Yes. TRANSFERS: TOILET - SCORE: 4-MIN TRANSFERS: SHOWER: Activity did not occur on this shift TRANSFERS: SHOWER - SCORE: 0-UNK TRANSFERS: TUB: Activity did not occur on this shift TRANSFERS: TUB - SCORE: 0-UNK LOCOMOTION: WALK: Activity did not occur on this shift LOCOMOTION: WALK - SCORE: 0-UNK LOCOMOTION: WHEELCHAIR: Activity did not occur on this shift LOCOMOTION: WHEELCHAIR - SCORE: 0-UNK COMPREHENSION: COMPREHENSION: TYPE: Both COMPREHENSION - STEP 1: Does the patient require help to understand complex and abstract ideas (such as current events, finan alonso, discharge planning, medical issues, relationships, etc)? No. COMPREHENSION - STEP 2: Does the patient need extra time, require an assistive device (such as glasses for visual comprehensi on or a hearing aid for auditory comprehension) or does s/he have mild difficulty understanding compl ex and abstract information? Yes. COMPREHENSION - SCORE: 6-KAMERON EXPRESSION EXPRESSION: TYPE: Both EXPRESSION - STEP 1: Does the patient require help expressing complex and abstract ideas (such as current events, finances , discharge planning, medical issues, relationships, etc)? No. EXPRESSION - STEP 2: Does the patient need extra time, require an assistive device (such as augmentive communication syste m or a communication board), OR does s/he have mild difficulty expressing complex and abstract ideas (including mild dysarthria or mild word-find problems)? Yes. EXPRESSION - SCORE: 6-KAMERON SOCIAL INTERACTION: SOCIAL INTERACTION - STEP 1: Does the patient require a helper to interact with others in social and therapeutic situations? No. SOCIAL INTERACTION - STEP 2: Does the patient need extra time in social situations, OR does s/he interact with staff, other patien ts, and family members ONLY in structured environments, OR does s/he require medication for social in teraction? Yes, patient needs extra time SOCIAL INTERACTION - SCORE: 6-KAMERON PROBLEM SOLVING: PROBLEM SOLVING - STEP 1: Does the patient need help to solve complex problems such as managing a checking account or confronti ng interpersonal problems? No. PROBLEM SOLVING - STEP 2: Does the patient require extra time to make decisions or solve problems, OR does s/he have slight dif ficulty reading, initiating, or self-correcting in unfamiliar situations? Yes, patient needs extra ti me. PROBLEM SOLVING - SCORE: 6-KAMERON MEMORY: MEMORY - STEP 1: Does the patient need help to remember frequently encountered people, daily routines, and executing r equests? No. MEMORY - STEP 2: Does the patient have slight difficulty recognizing frequently encountered people, daily routines, or executing requests without the need for repetition or using self-initiated or environmental cues to remember? Yes. MEMORY - SCORE: 6-KAMERON
[2018-06-13] MEDS: LEVOTHYROXINE SOD 0.112 MG TAB PO SCH (05:17)
[2018-06-13] MEDS: HYDROCODONE/APAP 7.5/325 MG TAB PO PRN ×2 (05:17→08:47)
[2018-06-13] MEDS: ENOXAPARIN 30 MG/0.3 ML SQ SCH (07:10)
[2018-06-13] MEDS: LIDOCAINE 5% PATCH TOP SCH (08:00)
[2018-06-13] MEDS: MAGNESIUM OXIDE 400 MG TAB PO SCH (08:00)
[2018-06-13] MEDS: PROMOD 30 ML DOSE PO SCH (08:00)
[2018-06-13] MEDS: ENSURE HIGH PROTEIN 237 ML CAN PO SCH (08:00)
[2018-06-13] MEDS: ASPIRIN EC 81 MG TAB PO SCH (08:30)
[2018-06-13] MEDS: FE SULF/FA/VIT B COMP & C TAB PO SCH (08:30)
[2018-06-13] MEDS: GABAPENTIN 300 MG CAP PO SCH (08:30)
[2018-06-13] MEDS: CLOPIDOGREL 75 MG TABLET PO SCH (08:30)
[2018-06-13] MEDS: AMLODIPINE 5 MG TAB PO SCH (08:30)
[2018-06-13] MEDS: FERROUS SULFATE 325 MG TAB PO SCH (08:30)
[2018-06-13] MEDS: NICOTINE 14 MG/PAT TD SCH (08:30)
[2018-06-13] MEDS: GUAIFENESIN/CODEINE 5ML UCUP PO PRN (11:20)
--- NOTE | 2018-06-13 13:48 | FAST ---
ENCOUNTER DATE AND TIME: 06/13/2018 08:00 (CDT) NAME LISS BURGESS DATE OF : 1945 DATE OF ADMISSION: 05/26/2018 16:00 (CDT) PHONE: AGE: 72 SSN# [id number] GENDER: Male ENCOUNTER PHYSICIAN: Dr. Harmeet Byers M.D. EATING: Activity did not occur on this shift EATING - SCORE: 0-UNK GROOMING: Activity did not occur on this shift GROOMING - SCORE: 0-UNK BATHING: Activity did not occur on this shift BATHING - SCORE: 0-UNK DRESSING - UPPER BODY: Activity did not occur on this shift Patient is not dressing in public clothing ARTICLES SCORE Total number of steps: 0 DRESSING - UPPER BODY - SCORE: 0-UNK DRESSING - LOWER BODY: Activity did not occur on this shift Patient is not dressing in public clothing ARTICLES SCORE Total number of steps: 0 DRESSING - LOWER BODY - SCORE: 0-UNK TOILETING: Activity did not occur on this shift TOILETING - SCORE: 0-UNK BLADDER MANAGEMENT: Activity did not occur on this shift BLADDER MANAGEMENT - SCORE: 7-IND BOWEL MANAGEMENT: Activity did not occur on this shift BOWEL MANAGEMENT - SCORE: 7-IND TRANSFERS: BED, CHAIR, WHEELCHAIR: TRANSFERS: BED, CHAIR, WHEELCHAIR - STEP 1: Does the patient require assistance with bed, chair, or wheelchair transfers? Yes. TRANSFERS: BED, CHAIR, WHEELCHAIR - STEP 2: Does the patient require the assistance of a helper? Yes. TRANSFERS: BED, CHAIR, WHEELCHAIR - STEP 3: How much assistance does the patient require from the helper? Steadying/guiding assistance TRANSFERS: BED, CHAIR, WHEELCHAIR - SCORE: 4-MIN TRANSFERS: TOILET: TRANSFERS: TOILET - STEP 1: Does the patient require assistance with toilet transfers? Yes. TRANSFERS: TOILET - STEP 2: Does the patient require the assistance of a helper? Yes. TRANSFERS: TOILET - STEP 3: How much assistance does the patient require from the helper? Patient performs half or more of the tr ansferring tasks TRANSFERS: TOILET - STEP 4: Does the patient need only incidental help such as contact guard or steadying during toilet transfer? Yes. TRANSFERS: TOILET - SCORE: 4-MIN TRANSFERS: SHOWER: Activity did not occur on this shift TRANSFERS: SHOWER - SCORE: 0-UNK TRANSFERS: TUB: Activity did not occur on this shift TRANSFERS: TUB - SCORE: 0-UNK LOCOMOTION: WALK: LOCOMOTION: WALK - STEP 1: Does the patient need help to walk 150 feet? Yes. LOCOMOTION: WALK - STEP 2: How much assistance does the patient require to walk a minimum of 150 feet? Only incidental help such as contact guarding or steadying LOCOMOTION: WALK - SCORE: 4-MIN LOCOMOTION: WHEELCHAIR: LOCOMOTION: WHEELCHAIR - STEP 1: Does the patient need help to go 150 feet in a wheelchair? No. LOCOMOTION: WHEELCHAIR - SCORE: 6-KAMERON LOCOMOTION: STAIRS: LOCOMOTION: STAIRS - STEP 1: Does the patient need help to go up and down 12 to 14 stairs? Yes. LOCOMOTION: STAIRS - STEP 2: How much assistance does the patient need from the helper to go a minimum of 12 to 14 stairs? The pat ient goes less than 12 stairs, but at least 4 stairs LOCOMOTION: STAIRS - SCORE: 2-MAX COMPREHENSION: COMPREHENSION - SCORE: 0-UNK EXPRESSION EXPRESSION - SCORE: 0-UNK SOCIAL INTERACTION: SOCIAL INTERACTION - SCORE: 0-UNK PROBLEM SOLVING: PROBLEM SOLVING - SCORE: 0-UNK MEMORY: MEMORY - SCORE: 0-UNK SIGNATURE PANEL: The following modified sections: Transfers: Bed, Chair, Wheelchair - Score, Transfers: Toilet - Score , Locomotion: Walk - Score, Locomotion: Wheelchair - Score, Locomotion: Stairs - Score were [electron ically] signed by Randell Mckeon PT on TueJun 13 2018 13:47:50 T-0500 (Central Daylight Time)
[2018-06-13 14:07] VITALS: BP 125/71; TEMP 98.2
--- NOTE | 2018-06-13 14:58 | FAST ---
ENCOUNTER DATE AND TIME: 06/13/2018 08:00 (CDT) NAME LISS BURGESS DATE OF : 1945 DATE OF ADMISSION: 05/26/2018 16:00 (CDT) PHONE: AGE: 72 SSN# [id number] GENDER: Male ENCOUNTER PHYSICIAN: Dr. Harmeet Byers M.D. EATING: Activity did not occur on this shift EATING - SCORE: 0-UNK GROOMING: Wash, rinse, and dry face Wash, rinse, and dry hands GROOMING - STEP 1: Does the patient require assistance when grooming? No. GROOMING - SCORE: 7-IND BATHING: Abdomen Chest Left arm Right arm BATHING - STEP 1: Does the patient require assistance when bathing? Yes. BATHING - STEP 2: Does the patient require the assistance of a helper? No. The patient only requires an assistive devic e such as a bath so, OR the patient takes more than reasonable time to bathe, OR there is a concern for safety such as regulating water temperature as the patient bathes. BATHING - SCORE: 6-KAMERON DRESSING - UPPER BODY: T-shirt/pullover shirt (four steps) ARTICLES SCORE Total number of steps: 4 DRESSING - UPPER BODY - STEP 1: Does the patient require help when dressing above the waist? Yes. DRESSING - UPPER BODY - STEP 2: Does the patient require the assistance of a helper? No. Patient only requires an assistive device, s uch as a button hook, velcro, or receiving coordinator. OR s/he takes more than reasonable time as s/he dresses the upper body. OR there is a concern for safety when s/he dresses the upper body DRESSING - UPPER BODY - SCORE: 6-KAMERON DRESSING - LOWER BODY: Elastic waist pants (three steps) Slip-on shoe - Left foot (one step) Slip-on shoe - Right foot (one step) Sock - Left foot (one step) Sock - Right foot (one step) ARTICLES SCORE Total number of steps: 7 DRESSING - LOWER BODY - STEP 1: Does the patient require help when dressing below the waist? Yes. DRESSING - LOWER BODY - STEP 2: Does the patient require the assistance of a helper? Yes. DRESSING - LOWER BODY - STEP 3: Does the helper touch the patient while dressing? No. DRESSING - LOWER BODY - SCORE: 5-SUP TOILETING: Activity did not occur on this shift TOILETING - SCORE: 0-UNK BLADDER MANAGEMENT: Activity did not occur on this shift BLADDER MANAGEMENT - SCORE: 7-IND BOWEL MANAGEMENT: Activity did not occur on this shift BOWEL MANAGEMENT - SCORE: 7-IND TRANSFERS: BED, CHAIR, WHEELCHAIR: Activity did not occur on this shift TRANSFERS: BED, CHAIR, WHEELCHAIR - SCORE: 0-UNK TRANSFERS: TOILET: Activity did not occur on this shift TRANSFERS: TOILET - SCORE: 0-UNK TRANSFERS: SHOWER: Activity did not occur on this shift TRANSFERS: SHOWER - SCORE: 0-UNK TRANSFERS: TUB: Activity did not occur on this shift TRANSFERS: TUB - SCORE: 0-UNK LOCOMOTION: WALK: Activity did not occur on this shift LOCOMOTION: WALK - SCORE: 0-UNK LOCOMOTION: WHEELCHAIR: Activity did not occur on this shift LOCOMOTION: WHEELCHAIR - SCORE: 0-UNK LOCOMOTION: STAIRS: Activity did not occur on this shift LOCOMOTION: STAIRS - SCORE: 0-UNK COMPREHENSION: COMPREHENSION - SCORE: 0-UNK EXPRESSION EXPRESSION - SCORE: 0-UNK SOCIAL INTERACTION: SOCIAL INTERACTION - SCORE: 0-UNK PROBLEM SOLVING: PROBLEM SOLVING - SCORE: 0-UNK MEMORY: MEMORY - SCORE: 0-UNK SIGNATURE PANEL: The following modified sections: Eating - Score, Grooming - Score, Bathing - Score, Dressing - Upper Body - Score, Dressing - Lower Body - Score, Toileting - Score, Transfers: Bed, Chair, Wheelchair - S core, Transfers: Toilet - Score, Transfers: Shower - Score, Transfers: Tub - Score, Comprehension - S core, Expression - Score, Social Interaction - Score, Problem Solving - Score, Memory - Score were [e lectronically] signed by JOSIE Celis on TueJun 13 2018 14:57:23 T-0500 ([facility] Time)
== END 2018-06-13 11:30 | DRG 57 ==
LOC: 5TH 16:00
PROVIDERS: ADMIT Psychiatry & Neurology Neurology with Special Qualifications in Child Neurology; ATTEND Psychiatry & Neurology Neurology with Special Qualifications in Child Neurology
DX: I69.351 Hemiplegia and hemiparesis following cerebral infarction affecting right dominant side (principal); J44.9 Chronic obstructive pulmonary disease, unspecified; I25.10 Atherosclerotic heart disease of native coronary artery without angina pectoris; I10 Essential (primary) hypertension; F17.200 Nicotine dependence, unspecified, uncomplicated; Z95.1 Presence of aortocoronary bypass graft
CPT/HCPCS: 36415; 71045; 74018; 80048; 81001; 82040; 83735; 84134; 85025; 87086; 87088; 97542; J1650

== ENCOUNTER 2019-08-09 10:46 | Inpatient (IN) | payer OTHER ==
--- NOTE | 2019-08-16 16:35 | R.PREADM ---
SCREENING DATE AND TIME 08/16/2019 14:10 (CHAIR SPRINGER) ANTICIPATED REHAB ADMISSION DATE 08/18/2019 REFERRING FACILITY [facility] REFERRAL DATE AND TIME 08/16/2019 14:10 (CHAIR SPRINGER) ACUTE ADMIT DATE 08/05/2019 Previous Rehabilitation(s): No. ACUTE TOOL SPECIALIST/DC PRODUCTION SUPV Aishwarya Reyes REFERRING PHYSICIAN [facility] REHAB FACILITY [facility] CLINICAL LIAISON Edie Veloz PHYSICIAN REVIEWER Dr. Harmeet Byers M.D. [id number] [id number] NAME LISS BOGGS ADDRESS [id number] [place] [address] DATE OF 1945 AGE 74 SSN# [id number] GENDER male MARITAL STATUS Single (Never ) RACE white ADMIT FROM 02 - [facility] PRE-HOSPITAL LIVING SETTING 01 - Home (private home/apt. board/care, assisted living, residential, transitional living) HOME TYPE AND DETAILS Type of home: single family house # of levels in the residence: 1 # of steps to enter the residence: 0 # of steps within the residence: 0 PRE-HOSPITAL LIVING WITH Family/Relatives FAMILY SUPPORT Yes PRIMARY FAMILY CONTACT NAME RAVI BLAIR PRIMARY FAMILY CONTACT PHONE PHONE PRIMARY FAMILY CONTACT ON ADM.? no IS PRIMARY FAMILY CONTACT AUTH. REP.? no 1ST EMERGENCY CONTACT RAVI BLARI 1ST CONTACT PHONE PHONE 1ST CONTACT ON ADM. no IS 1ST CONTACT AUTH. REP.? no PHONE 2ND CONTACT ON ADM.? no PATIENT EMPLOYMENT STATUS Retired (for age) PATIENT EMPLOYER No Employer PAYOR INFORMATION: 1ST PAYOR NAME [facility] 1ST PAYOR INJURY/ILLNESS DUE TO ACCIDENT? No ANOTHER LIBERTARIAN RESPONSIBLE? 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 COMORBID REHAB/ACUTE DIAGNOSES: - N/A HTN COPD HYPOTHYROIDISM CAD HX OF CVA CKD STAGE 3 SEVERE LUMBAR STENOSIS L3-L4 INTERVENTIONS: - COPD 02 sats Medications Nebulizers Oxygen Resp. therapy X-rays - CAD 02 sats Activity management Medications VS RISK FOR COMPLICATIONS: - COPD Acute Resp failure Pneumonia Resp. Arrest - CAD CHF Cardiac Arrest [place] Pain SUMMARY OF ACUTE HOSPITALIZATION: Pt. is a 74 yo Right-handed white male. On 08/05/2019 Pt. presented to [facility] with sudden onset of right-side weakness. On 08/05/2019 he was admitted to [facility] with diagnosis Acute Ischemic Infract left posterio r limb of internal capsule. His impairment category is Stroke 01 - Right Body (Left Brain) (01.2). Pre-morbidly, Pt. was independent/mod-I in Locomotion, Balance, Social Cognition, Transfers Control, Self-Care, and Endurance; and he had good Locomotion, Balance, Social Cognition, Transfers Control, S phincter Control, Self-Care, Endurance, Safety Awareness, and Communication. Currently, he has deficits of Locomotion, Safety Awareness, Balance, Social Cognition, Transfers Cont rol, Self-Care, Communication, and Endurance. Pt. is now referred to [facility] for acute in-patient rehabilitation in order to maximize patient's functional independence in activities of daily living, strength, ROM, and mobi lity. Patient has realistic goal of being discharged at assistance level 6-Vi to reside at Home with Fam amena/Relatives. Liss Boggs is a 75 year old male that lives in a single david house. Modified independent with all ADLs and self care. On 08/05/2019, patient tried to get out of the bed when his legs felt weaker than normal and was admitted to [facility] and treated. He is now medically stable but in need of 24-hour nursing, doctor supervision and oversite participate in 3hours of therapy a day/15 hours per week and receive care with an intensive interdisciplinary approach. PAST MEDICAL HISTORY CAD CKD STAGE 3 COPD HTN HX OF CVA HYPOTHYROIDISM SEVERE LUMBAR STENOSIS L3-L4 PAST SURGICAL HISTORY: LUE ORIF CABG MEDICATION ALLERGIES: No Known Drug Allergies (NKDA) ENVIRONMENTAL ALLERGIES: None Known - Substance Allergies None Known - Other Allergies None Known CODE STATUS: Full code WEIGHT/HEIGHT/BMI: WEIGHT 232.98 lbs HEIGHT 5' 9" BMI 34.3 DIET: - Diet Type Regular - Diet - Solid Texture Regular - Diet - Liquid Texture Regular - Tube Feed N/A REVIEW OF SYSTEMS: - Gen Alert and awake Lying in bed No apparent distress Oriented to: person, time, and place - Vital Signs Temperature: 97.4 F SBP/DBP: 120/70 Pulse: 54 Resp: 16 Vital signs stable, afebrile - CVS RRR VITAL SIGNS Temperature: 97.4 F SBP/DBP: 120/70 Pulse: 54 Resp: 16 Vital signs stable, afebrile MEDICATIONS/TREATMENT: Other- See attached MAR (Medication Administration Record). CURRENT SPHINCTER CONTROL: Pre-hospital bladder status: continent # of bladder accidents in the last 7 days prior to screenin Pre-hospital bowel status: continent # of bowel accidents in the last 7 days prior to screenin Last Bowel Movement Date: CURRENT LOCOMOTION STATUS: distance walked 0 feet DETAILED CURRENT FUNCTIONAL STATUS: - Bladder accident frequency: Ind - No accidents in the past 7 days - Bowel accident frequency: Ind - No accidents in the past 7 days - Walking score based on distance walked: 0(N/A) - Wheelchair score based on distance traveled: 0(N/A) QI SCORES: - Self-Care A. Eating 03-Partial/moderate assistance B. Oral hygiene 03-Partial/moderate assistance C. Toileting hygiene 03-Partial/moderate assistance E. Shower/bathe self 03-Partial/moderate assistance F. Upper body dressing 03-Partial/moderate assistance G. Lower body dressing 02-Substantial/maximal assistance H. Putting on/taking off footwear 02-Substantial/maximal assistance - Mobility A. Roll left and right 03-Partial/moderate assistance B. Sit to lying 03-Partial/moderate assistance C. Lying to sitting on side of bed 02-Substantial/maximal assistance D. Sit to stand 02-Substantial/maximal assistance E. Chair/bvz-vs-cviyg transfer 02-Substantial/maximal assistance F. Toilet transfer 02-Substantial/maximal assistance G. Car transfer 88-Not attempted due to medical condition or safety concerns I. Walk 10 feet 88-Not attempted due to medical condition or safety concerns J. Walk 50 feet with two turns 88-Not attempted due to medical condition or safety concerns K. Walk 150 feet 88-Not attempted due to medical condition or safety concerns L. Walking 10 feet on uneven surfaces 88-Not attempted due to medical condition or safety concerns M. 1 step (curb) 88-Not attempted due to medical condition or safety concerns N. 4 steps 88-Not attempted due to medical condition or safety concerns O. 12 steps 88-Not attempted due to medical condition or safety concerns P. Picking up object 88-Not attempted due to medical condition or safety concerns R. Wheel 50 feet with two turns 88-Not attempted due to medical condition or safety concerns S. Wheel 150 feet 88-Not attempted due to medical condition or safety concerns - Bladder and Bowel Bladder continence 0-Always continent Bowel continence 0-Always continent - Endurance Poor - Balance Poor - Safety Awareness Fair CURRENT FUNC. DEFICITS: Self-Care, Mobility, Endurance, Balance, and Safety Awareness CURRENT / PREVIOUS ASSISTIVE DEVICES: 3-in-1 Commode BSC Dentures Glasses Rolling Walker Shower Chair Wheelchair CURRENT USE ASSISTIVE DEVICES: SCDs TEDs HISTORY OF FALLS. HAS THE PATIENT HAD TWO OR MORE FALLS IN THE PAST YEAR OR ANY FALL WITH INJURY IN T HE PAST YEAR?: No PRIOR SURGERY. DID THE PATIENT HAVE MAJOR SURGERY DURING THE 100 DAYS PRIOR TO ADMISSION?: No THERAPY NOTES FROM ACUTE CARE: Attached. SPECIAL NEEDS: - Safety Concerns Skin breakdown precautions needed due to skin breakdown risk PRECAUTIONS: - Weight Bearing Precaution WBAT right LE PATIENT NEEDS ACTIVE AND ONGOING THERAPEUTIC INTERVENTION OF MULTIPLE THERAPY DISCIPLINES, INCLUDING: - Occupational Therapy Cognitive Retraining. Visual Perceptual Training. - Dietary and Nutrition Adequate Nutrition. Nutritional Education. Nutritional Supplements. - Speech Therapy Cognitive Training. Expressive Language Skills. Memory Strategies. Receptive Language Skills. Speech Intelligibility Training. PATIENT NEEDS CLOSE MEDICAL SUPERVISION BY A REHABILITATION PHYSICIAN FOR: Coordination of Treatment Team Medical and Co-Morbidity Management PATIENT REQUIRES 24X7 REHAB NURSING FOR MEDICAL AND FUNCTIONAL MGT. OF THE FOLLOWING DEFICITS: Disease Management Medication Management Patient/Family Education Providing Safe Environment PATIENT REQUIRES INTENSIVE, COORDINATED INTERDISCIPLINARY APPROACH TO REHAB: Arranging Home Equipment/Services Discharge Planning Family Intervention/Training Paper Finisher/Case Management PATIENT REHAB POTENTIAL: Glenis BOGGS is able and expected to receive 3 hours of individualized therapy daily on at least 5 of every 7 days Glenis BOGGS's prognosis for significant practical improvement within a reasonable period of time vee ears Good Expected level of measurable improvement will be of a practical value to Glenis BOGGS's functional ca pacity or adaptations to impairments Has a viable Discharge Plan Medically appropriate; condition is sufficiently stable to participate in intensive rehab program DISCHARGE PLAN: - Estimated Length of Stay (days) 17. - Consensus on plan Discharge plan has been discussed with primary caregiver. Patient/Family is in agreement with the thea n. Primary caregiver is in agreement with the plan. - Patient/Family Goals Return home with assistance. - Planned Living Setting Upon Discharge Home, to live with Family/Relatives. Transitional Living. RECOMMENDED CARE LEVEL: IRF RECOMMENDATION DETAILS: Recommended Admission to Comprehensive Rehabilitation Program to Increase Functional [place] SCREENER'S COMPLETENESS CONFIRMATION: - Screening Confirmation The patient data collection on this preadmission screening form is finished PHYSICIANS REVIEW AND ADMISSION DETERMINATION Admit - Based on my review of the Pre-Admission Screening results, in my medical judgment and experie nce, I concur with the findings and recommend admission to [facility], as this patient requires an IRF level of care. SIGNATURE PANEL: Clinical Liaison - [electronically] signed by Edie Veloz on 08/16/2019 at 14:59 (CHAIR SPRINGER) Physician Reviewer - [electronically] signed by Dr. Harmeet Byers M.D. on 08/16/2019 at 16:34 (CHAIR SPRINGER )
--- OUTSIDE RECORDS SUMMARY | 2019-08-16 22:48 | XMS REPORT ---
:1945 Author Organization [facility] Address [address] [place] [address] Care Team Providers Name Role Phone BERNY JONESBritton Unavailable Unavailable Problems This patient has no known problems. Allergies, Adverse Reactions, Alerts This patient has no known allergies or adverse reactions. Medications This patient has no known medications. Encounters Start End Encounter Admission Attending Care Care Encounter Date/Time Date/Time Type Type Clinicians Facility Department ID 2019-08-05 Inpatient E [facility] [id number] 12:48:00 2019-08-05 2019-08-05 Outpatient [facility] [id number] 00:00:00 00:00:00 Results Test Description Test Time Test Comments Text Results Atomic Results Result Comments EEG AWAKE 2018-12-27 Reason for NEUROPHYSIOLOGY SECTION: EEG REPORTStudy: AND DROWSY 17:41:00 exam:->LOC Patient: Rashid Boggs [id number]: [id number] physician: Isma Berry10: R56.9CPT: [id number]: 12/27/18Total monitoring time: 30 minutesThis is a digital EEG recorded with 32 input channels on a [employer] system and then reviewed with bipolar and referential montages using the modified combinatorial system nomenclature.DESCRIPTION OF RECORD: The posterior dominant rhythm is 6 hz and well regulated. There is much diffuse 4-6 hz activity. The background retains appropriate spontaneous variability. Drowsiness was represented by the onset of fronto-central theta and incipient bilaterally present and symmetric vertex waves. Sleep patterns were not observed. Focal features: a. noneHyperventilation was not performed.Photic stimulation across a broad range of frequencies did not induce abnormal waveforms or responses. ECG: regular, sinus rhythm with occasional PVCs 觟ELECTROGRAPHIC/ELECTRO-CLINICAL EVENTS: b. NoneIMPRESSION: ABNORMAL EEG IN WAKEFULNESS AND DROWSINESS- Diffuse background slowing, theta rangeClinical correlation: The background slowing as seen in in this record indicates the presence of a mild encephalopathy. The absence of epileptiform activity does not rule out the possibility of epilepsy, if clinically indicated, consider additional EEG recordings. Dalia Wilson M.D., Ph.D.Epilepsy Attending GLOBIN A1C 2018-12-27 13:59:00 Test Item Value Reference Range Comments HEMOGLOBIN A1C (BEAKER) (test jfdb=508) 5.4 % 4.3-6.1 [id number] 08:35:00 Test Item Value Reference Range Comments THYROID STIMULATING HORMONE (BEAKER) (test 182.63 uIU/mL 0.35-4.94 sqws=516) VITAMIN [id number] 05:50:00 Test Item Value Reference Range Comments VITAMIN B12 (BEAKER) (test yffo=355) 154 pg/mL 213-816 FOLATE, [id number] 05:50:00 Test Item Value Reference Range Comments FOLATE (BEAKER) (test yaii=172) 4.4 ng/mL >=7.0 TROPONIN [id number] 05:10:00 Test Item Value Reference Range Comments TROPONIN I (BEAKER) (test guxl=000) < ng/mL 0.00-0.03 Troponin I (TnI) levels must be interpreted in the context of the presenting symptoms and the clinical findings. Elevated TnI levels indicate myocardial damage, but are not specific for ischemic heart disease. Elevated TnI levels are seen in patients with other cardiac conditions (including myocarditis and congestive heart failure), and slight TnI elevations occur in patients with other conditions, including sepsis, renal failure, acidosis, acute neurological disease, and persistent tachyarrhythmia.LIPID [id number] 05:05:00 Test Item Value Reference Range Comments TRIGLYCERIDES (BEAKER) (test tevq=936) 200 mg/dL CHOLESTEROL (BEAKER) (test absc=594) 327 mg/dL HDL CHOLESTEROL (BEAKER) (test lpny=548) 43 mg/dL LDL CHOLESTEROL CALCULATED (BEAKER) (test 244 mg/dL onfi=670) Triglyceride Reference Range: Low Risk <150 Borderline 150- 199 High Risk 200-499 Very High Risk >=500Cholesterol Reference Range: Low Risk <200 Borderline 200-239 High Risk > 240HDL Cholesterol Reference Range: Low Risk >=60 High Risk <40LDL Cholesterol Reference Range: Optimal <100 Near Optimal 100-129 Borderline 130-159 High 160-189 Very High >=190BASIC METABOLIC [id number] 05:04:00 Test Item Value Reference Range Comments SODIUM (BEAKER) (test 135 meq/L 136-145 zmse=566) POTASSIUM (BEAKER) (test 3.8 meq/L 3.5-5.1 zrlv=406) CHLORIDE (BEAKER) (test 102 meq/L 98-107 vbix=085) CO2 (BEAKER) (test 25 meq/L 22-29 fdiv=321) BLOOD UREA NITROGEN 16 mg/dL 7-21 (BEAKER) (test odbm=665) CREATININE (BEAKER) (test 1.64 mg/dL 0.57-1.25 jgkv=911) GLUCOSE RANDOM (BEAKER) 83 mg/dL 70-105 (test hmjl=676) CALCIUM (BEAKER) (test 9.6 mg/dL 8.4-10.2 emps=979) EGFR (BEAKER) (test 41 mL/min/1.73 sq m ESTIMATED GFR IS NOT dcfn=0987) ACCURATE CREATININE CLEARANCE IN PREDICTING GLOMERULAR FILTRATION RATE. ESTIMATED GFR IS NOT APPLICABLE FOR DIALYSIS PATIENTS. CREATINE KINASE (CK)2018-12-27 05:04:00 Test Item Value Reference Range Comments CREATINE KINASE TOTAL (BEAKER) (test modt=286) 313 U/L 29-200 CBC (HEMOGRAM ONLY)2018-12-27 04:49:00 Test Item Value Reference Range Comments WHITE BLOOD CELL COUNT (BEAKER) (test uagc=921) 7.4 K/ L 3.5-10.5 RED BLOOD CELL COUNT (BEAKER) (test xqaf=770) 3.82 M/ L 4.63-6.08 HEMOGLOBIN (BEAKER) (test uxqe=578) 12.5 GM/DL 13.7-17.5 HEMATOCRIT (BEAKER) (test ceey=485) 37.7 % 40.1-51.0 MEAN CORPUSCULAR VOLUME (BEAKER) (test ngus=386) 98.7 fL 79.0-92.2 MEAN CORPUSCULAR HEMOGLOBIN (BEAKER) (test 32.7 pg 25.7-32.2 kqel=572) MEAN CORPUSCULAR HEMOGLOBIN CONC (BEAKER) (test 33.2 GM/DL 32.3-36.5 lnsd=111) RED CELL DISTRIBUTION WIDTH (BEAKER) (test 14.1 % 11.6-14.4 zsxy=593) PLATELET COUNT (BEAKER) (test xprl=310) 195 K/CU MM 150-450 MEAN PLATELET VOLUME (BEAKER) (test hyvt=847) 11.1 fL 9.4-12.4 NUCLEATED RED BLOOD CELLS (BEAKER) (test 0 /100 WBC 0-0 setr=666) MR, MRA, BRAIN, WITHOUT [id number] 23:35:00Reason for exam:-> Ischemic Stroke EvaluationFINAL REPORT MR, MRA, BRAIN, WITHOUT CONTRAST, MR, BRAIN, WITHOUT CONTRAST, MR, MRA, NECK, WITHOUT IV CONTRAST INDICATION: Ischemic Stroke EvaluationSLURRED SPEECH TECHNIQUE: Multiplanar, multisequence MR images of the brain. 3-D time of flight MRA of the cranial and cervical circulation. 2-D time of flight MRA of the neck. 3D MIP angiographic post-processing was performed. Stenosis evaluation utilized NASCET criteria. COMPARISON: Noncontrast brain CT of the same date FINDINGS: MRI BRAIN: Brain parenchyma is normal in morphology. Midline structures are normally developed. No restricted diffusion to suggest recent ischemic insult. No abnormal susceptibility. Scattered T2/FLAIR hyperintense foci within the periventricular and subcortical white matter are nonspecific, however, statistically represent chronic microvascular ischemic changes. Multiple bilateral infarcts of the cerebellum No hydrocephalus. Orbits are within normal limits. No obstructive paranasal sinus disease. Calvarium and skull base demonstrate marrow signal within normal limits for age without focal lesion. Additional findings: None. 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 Suspected fenestration of the intercommunicating artery. Infundibulum versus tiny aneurysm arising from the left A2 segment.Basilar system: Normal flow-related enhancement within the bilateral V4 segments and the basilar artery without flow-limiting stenosis Posterior cerebral arteries: Normal flow-related enhancement within the bilateral ELECTION WATCHER P1-P2 segments without flow-limiting stenosis functional - type ELECTION WATCHER on the leftAdditional findings: None. MRA NECK:Common carotid arteries : Unremarkable. Bifurcations: No flow-limiting stenosis. Cervical internal carotid arteries: No flow limiting stenosis.Vertebral arteries: Origins are not well-seen. No flow limiting stenosis within the visualized cervical vertebral arterial segments. Limited assessment of the V3 segment secondary to noncontrast technique. IMPRESSION: No acute ischemia or parenchymal hemorrhage. No flow limiting stenosis in the major branch vessels of the cervical or cranial circulation. Infundibulum versus tiny aneurysm arising from the left A2 segment. Recommend CT angiogram of the brain when clinically feasible for further assessment. Signed: Adelaida Salgado MDReport Verified Date/ Time: 12/26/2018 23:35:45 Reading Location: [address] Neuro Reading Room MR , MRA, NECK, WITHOUT IV [id number] 23:35:00Reason for exam:-> Ischemic Stroke EvaluationFINAL REPORT MR, MRA, BRAIN, WITHOUT CONTRAST, MR, BRAIN, WITHOUT CONTRAST, MR, MRA, NECK, WITHOUT IV CONTRAST INDICATION: Ischemic Stroke EvaluationSLURRED SPEECH TECHNIQUE: Multiplanar, multisequence MR images of the brain. 3-D time of flight MRA of the cranial and cervical circulation. 2-D time of flight MRA of the neck. 3D MIP angiographic post-processing was performed. Stenosis evaluation utilized NASCET criteria. COMPARISON: Noncontrast brain CT of the same date FINDINGS: MRI BRAIN: Brain parenchyma is normal in morphology. Midline structures are normally developed. No restricted diffusion to suggest recent ischemic insult. No abnormal susceptibility. Scattered T2/FLAIR hyperintense foci within the periventricular and subcortical white matter are nonspecific, however, statistically represent chronic microvascular ischemic changes. Multiple bilateral infarcts of the cerebellum No hydrocephalus. Orbits are within normal limits. No obstructive paranasal sinus disease. Calvarium and skull base demonstrate marrow signal within normal limits for age without focal lesion. Additional findings: None. 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 Suspected fenestration of the intercommunicating artery. Infundibulum versus tiny aneurysm arising from the left A2 segment.Basilar system: Normal flow-related enhancement within the bilateral V4 segments and the basilar artery without flow-limiting stenosis Posterior cerebral arteries: Normal flow-related enhancement within the bilateral ELECTION WATCHER P1-P2 segments without flow-limiting stenosis functional - type ELECTION WATCHER on the leftAdditional findings: None. MRA NECK:Common carotid arteries : Unremarkable. Bifurcations: No flow-limiting stenosis. Cervical internal carotid arteries: No flow limiting stenosis.Vertebral arteries: Origins are not well-seen. No flow limiting stenosis within the visualized cervical vertebral arterial segments. Limited assessment of the V3 segment secondary to noncontrast technique. IMPRESSION: No acute ischemia or parenchymal hemorrhage. No flow limiting stenosis in the major branch vessels of the cervical or cranial circulation. Infundibulum versus tiny aneurysm arising from the left A2 segment. Recommend CT angiogram of the brain when clinically feasible for further assessment. Signed: Adelaida Salgado MDReport Verified Date/ Time: 12/26/2018 23:35:45 Reading Location: [address] Neuro Reading Room MR , BRAIN, WITHOUT [id number] 23:35:00Reason for exam:->Ischemic Stroke EvaluationFINAL REPORT MR, MRA, BRAIN, WITHOUT CONTRAST, MR, BRAIN, WITHOUT CONTRAST, MR, MRA, NECK, WITHOUT IV CONTRAST INDICATION: Ischemic Stroke EvaluationSLURRED SPEECH TECHNIQUE: Multiplanar, multisequence MR images of the brain. 3-D time of flight MRA of the cranial and cervical circulation. 2-D time of flight MRA of the neck. 3D MIP angiographic post-processing was performed. Stenosis evaluation utilized NASCET criteria. COMPARISON: Noncontrast brain CT of the same date FINDINGS: MRI BRAIN : Brain parenchyma is normal in morphology. Midline structures are normally developed. No restricted diffusion to suggest recent ischemic insult. No abnormal susceptibility. Scattered T2/FLAIR hyperintense foci within the periventricular and subcortical white matter are nonspecific, however, statistically represent chronic microvascular ischemic changes. Multiple bilateral infarcts of the cerebellum No hydrocephalus. Orbits are within normal limits. No obstructive paranasal sinus disease. Calvarium and skull base demonstrate marrow signal within normal limits for age without focal lesion. Additional findings: None. 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 Suspected fenestration of the intercommunicating artery. Infundibulum versus tiny aneurysm arising from the left A2 segment.Basilar system: Normal flow-related enhancement within the bilateral V4 segments and the basilar artery without flow-limiting stenosis Posterior cerebral arteries: Normal flow-related enhancement within the bilateral ELECTION WATCHER P1-P2 segments without flow-limiting stenosis functional - type ELECTION WATCHER on the leftAdditional findings: None. MRA NECK:Common carotid arteries : Unremarkable. Bifurcations: No flow-limiting stenosis. Cervical internal carotid arteries: No flow limiting stenosis.Vertebral arteries: Origins are not well-seen. No flow limiting stenosis within the visualized cervical vertebral arterial segments. Limited assessment of the V3 segment secondary to noncontrast technique. IMPRESSION: No acute ischemia or parenchymal hemorrhage. No flow limiting stenosis in the major branch vessels of the cervical or cranial circulation. Infundibulum versus tiny aneurysm arising from the left A2 segment. Recommend CT angiogram of the brain when clinically feasible for further assessment. Signed: Adelaida Salgado MDReport Verified Date/ Time: 12/26/2018 23:35:45 Reading Location: [address] Neuro Reading Room RAD , CHEST, 1 VIEW, NON [id number] 20:54:00Reason for exam:->weaknessFINAL REPORT EXAMINATION: AP PORTABLE CHEST RADIOGRAPH CLINICAL INDICATION: Weakness IMPRESSION: No comparison studies are available. The patient is status post cardiothoracic surgery with midline sternotomy. The heart is borderline enlarged for this projection. Streaky reticular opacities are noted in both lungs, most conspicuous in the perihilar regions and along the heart borders. A component of atelectasis and/or scarring is favored. A pneumonia, sequela from aspiration (possibly chronic) or mild pulmonary edema are difficult to exclude. No evidence of a large pleural effusion, acute osseous abnormality or pneumothorax. Calcific atherosclerotic changes are incidentally noted along the expected course of the left cervical carotid arteries. Chest CT could be performed forfurther evaluation if clinically warranted. Signed: Austyn Clayton MDReport Verified Date/Time: 12/26/2018 20:54: 25 Reading Location: [address] Reading Room CBC W/PLT COUNT & AUTO [id number] 19:49:00 Test Item Value Reference Range Comments WHITE BLOOD CELL COUNT (BEAKER) (test iuip=219) 7.9 K/ L 3.5-10.5 RED BLOOD CELL COUNT (BEAKER) (test idhx=024) 3.84 M/ L 4.63-6.08 HEMOGLOBIN (BEAKER) (test frea=354) 13.0 GM/DL 13.7-17.5 HEMATOCRIT (BEAKER) (test bhcx=184) 38.2 % 40.1-51.0 MEAN CORPUSCULAR VOLUME (BEAKER) (test eiku=232) 99.5 fL 79.0-92.2 MEAN CORPUSCULAR HEMOGLOBIN (BEAKER) (test 33.9 pg 25.7-32.2 hpuo=311) MEAN CORPUSCULAR HEMOGLOBIN CONC (BEAKER) (test 34.0 GM/DL 32.3-36.5 rakh=453) RED CELL DISTRIBUTION WIDTH (BEAKER) (test 14.3 % 11.6-14.4 xdol=073) PLATELET COUNT (BEAKER) (test pkvl=485) 222 K/CU MM 150-450 MEAN PLATELET VOLUME (BEAKER) (test cmvo=867) 10.8 fL 9.4-12.4 NUCLEATED RED BLOOD CELLS (BEAKER) (test 0 /100 WBC 0-0 qswg=140) NEUTROPHILS RELATIVE PERCENT (BEAKER) (test 74 % pbwo=466) LYMPHOCYTES RELATIVE PERCENT (BEAKER) (test 16 % wksr=293) MONOCYTES RELATIVE PERCENT (BEAKER) (test 8 % yfkz=375) EOSINOPHILS RELATIVE PERCENT (BEAKER) (test 1 % iueo=377) BASOPHILS RELATIVE PERCENT (BEAKER) (test 2 % xsba=426) NEUTROPHILS ABSOLUTE COUNT (BEAKER) (test 5.78 K/ L 1.78-5.38 ocgj=516) LYMPHOCYTES ABSOLUTE COUNT (BEAKER) (test 1.25 K/ L 1.32-3.57 wofx=290) MONOCYTES ABSOLUTE COUNT (BEAKER) (test 0.60 K/ L 0.30-0.82 dfad=397) EOSINOPHILS ABSOLUTE COUNT (BEAKER) (test 0.09 K/ L 0.04-0.54 oxbj=049) BASOPHILS ABSOLUTE COUNT (BEAKER) (test 0.13 K/ L 0.01-0.08 ewsy=615) IMMATURE GRANULOCYTES-RELATIVE PERCENT (BEAKER) 1 % 0-1 (test gore=6618) B-TYPE NATRIURETIC FACTOR (BNP)2018-12-26 19:48:00 Test Item Value Reference Range Comments B-TYPE NATRIURETIC PEPTIDE (BEAKER) (test qtav=748) 23 pg/mL 0-100 CT, BRAIN/STROKE [id number] 19:40:00Reason for exam:->strokeFINAL REPORT Patient name: Liss BoggsMRN: [id number] CT head without contrast. Reason for exam: Stroke Comparisons: No priors Discussion : Multiple axial CT images of the head are provided without contrast evaluated in brain and bone windows. This exam was performed according to our departmental dose optimization program which includes automated exposure control , adjustment of the mA and/or kV according to patient's size and/or use of iterative reconstructive technique. Motion degraded exam. Allowing for this limitation, there is no CT evidence of acute large vascular territory infarct. There is age related generalized brain volume loss. Nonspecific confluent supratentorial white matter hypodensity most likely reflects chronic small vessel ischemic disease. Intracranial vascular calcifications are present. There is no CT evidence of intracranial hemorrhage, mass-effect, hydrocephalus, shift, or extra-axial collections. The visualized orbital contents, bones and surrounding soft tissues are unremarkable. The visualized paranasal sinuses and mastoid air cells are unremarkable. Impressions: Motion degraded exam. Allowing for this limitation, no acute intracranial process is identified. Advanced involutional and chronic microvascular ischemic changes. If there is persistent clinical concern, consider MRI correlation. Signed: Raleigh Rebolledoeport Verified Date/Time:12/26/2018 19:40:04 Reading Location: [facility] Reading Room Electronically signed by: RALEIGH REBOLLEDO M.D. on 12/26 07:40 PMBASIC METABOLIC [id number] 18:34:00 Test Item Value Reference Range Comments SODIUM (BEAKER) (test 137 meq/L 136-145 syri=833) POTASSIUM (BEAKER) (test 4.0 meq/L 3.5-5.1 knec=087) CHLORIDE (BEAKER) (test 101 meq/L 98-107 qwvu=008) CO2 (BEAKER) (test 28 meq/L 22-29 uegr=304) BLOOD UREA NITROGEN 14 mg/dL 7-21 (BEAKER) (test gksq=635) CREATININE (BEAKER) 1.85 mg/dL 0.57-1.25 (test pfrk=433) GLUCOSE RANDOM (BEAKER) 102 mg/dL 70-105 (test yylo=526) CALCIUM (BEAKER) (test 9.8 mg/dL 8.4-10.2 yvgt=921) EGFR (BEAKER) (test 36 mL/min/1.73 sq m INSUFFICIENT CLINICAL DATA iukv=1833) TO CALCULATE ESTIMATED GFR. [id number] 18:34:00 Test Item Value Reference Range Comments MAGNESIUM (BEAKER) (test kgfw=206) 2.4 mg/dL 1.6-2.6 TROPONIN [id number] 18:34:00 Test Item Value Reference Range Comments TROPONIN I (BEAKER) (test zxvl=606) < ng/mL 0.00-0.03 Troponin I (TnI) levels must be interpreted in the context of the presenting symptoms and the clinical findings. Elevated TnI levels indicate myocardial damage, but are not specific for ischemic heart disease. Elevated TnI levels are seen in patients with other cardiac conditions (including myocarditis and congestive heart failure), and slight TnI elevations occur in patients with other conditions, including sepsis, renal failure, acidosis, acute neurological disease, and persistent tachyarrhythmia.PT/[id number] 18:24:00 Test Item Value Reference Range Comments PROTIME (BEAKER) (test jhcv=243) 12.9 seconds 11.7-14.7 INR (BEAKER) (test njwn=614) 1.0 <=5.9 PARTIAL THROMBOPLASTIN TIME (BEAKER) (test 30.4 seconds 22.5-36.0 aypv=711) RECOMMENDED COUMADIN/WARFARIN INR THERAPY RANGESSTANDARD DOSE: 2.0 - 3.0 Includes: PROPHYLAXIS forvenous thrombosis, systemic embolization; TREATMENT for venous thrombosis and/or pulmonary embolus.HIGH RISK: Target INR is 2.5-3.5 for patients with mechanical heart valves.
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
[2019-08-17] MEDS: TRAMADOL HCL 50 MG TAB PO PRN ×3 (02:52→19:14)
[2019-08-17 06:33] LABS: Absolute Lymphocytes (CBC) 0.8 K/uL (0.7-4.9); Basophils % 0.3 % (0-1.3); Hematocrit 21.1 % (39.6-49.0); Lymphocytes % 10.7 % (15.3-44.8); MPV 8.5 fL (7.6-11.3); RBC Red Blood Cell Count 2.08 M/uL (4.33-5.43)
[2019-08-17] MEDS: HYDROCODONE/APAP 10/325 TAB PO PRN ×2 (06:49→16:46)
[2019-08-17] MEDS: LEVOTHYROXINE SOD 0.112 MG TAB PO SCH (06:50)
[2019-08-17 06:56] LABS: Albumin 2.6 g/dL (3.4-5.0); Magnesium 2.2 mg/dL (1.8-2.4); Potassium 3.6 mmol/L (3.5-5.1); Prealbumin 12.3 mg/dL (20-40)
[2019-08-17] MEDS ORDERED: GABAPENTIN 300 MG CAP PO SCH (08:00)
[2019-08-17 08:23] LABS: Platelet Estimate ADEQ
[2019-08-17 08:24] LABS: Blood Morphology Comment NOT SEEN (NOT SEEN)
[2019-08-17] MEDS: ASPIRIN 81 MG CHEWABLE TABLET PO SCH (08:25)
[2019-08-17] MEDS: CLOPIDOGREL 75 MG TABLET PO SCH (08:25)
[2019-08-17] MEDS: GABAPENTIN 300 MG CAP PO SCH ×2 (08:25→16:46)
[2019-08-17] MEDS: FE SULF/FA/VIT B COMP & C TAB PO SCH (08:26)
[2019-08-17] MEDS: FERROUS SULFATE 325 MG TAB PO SCH (08:26)
[2019-08-17] MEDS: NICOTINE 14 MG/PAT TD SCH (08:27)
[2019-08-17] MEDS: PROMOD 30 ML DOSE PO SCH ×2 (08:28→21:24)
--- NOTE | 2019-08-17 10:06 | P.RH.PN ---
Estimated Length of Stay: 14 Expected Discharge Date: 08/29/19 Discharge Disposition Plan: Home Family Support: Yes Fpc Goal: Mobility, Transfers, Self Care Vital Signs: Last Vital Signs Temp 97.3 F 08/16/19 22:45 Pulse 70 08/16/19 22:45 Resp 17 08/17/19 07:49 BP 127/60 08/16/19 22:45 Pulse Ox 95 08/17/19 07:49 Laboratory: Laboratory Last Values WBC 7.1 K/uL (4.3-10.9) 08/17/19 06:04 RBC 2.08 M/uL (4.33-5.43) L 08/17/19 06:04 Hgb 7.2 g/dL (13.6-17.9) L* 08/17/19 06:04 Hct 21.1 % (39.6-49.0) L 08/17/19 06:04 MCV 101.8 fL (80-100) H 08/17/19 06:04 MCH 34.8 pg (27.0-35.0) 08/17/19 06:04 MCHC 34.1 g/dL (32.0-36.0) 08/17/19 06:04 RDW 14.5 % (12.1-15.2) 08/17/19 06:04 Plt Count 187 K/uL (152-406) 08/17/19 06:04 MPV 8.5 fL (7.6-11.3) 08/17/19 06:04 Neutrophils % 72.8 % (41.7-73.7) 08/17/19 06:04 Lymphocytes % 10.7 % (15.3-44.8) L 08/17/19 06:04 Monocytes % 14.8 % (3.3-12.3) H 08/17/19 06:04 Eosinophils % 1.4 % (0-4.4) 08/17/19 06:04 Basophils % 0.3 % (0-1.3) 08/17/19 06:04 Absolute Neutrophils 5.2 K/uL (1.8-8.0) 08/17/19 06:04 Segmented Neutrophils 76 % (40-80) 08/17/19 06:04 Band Neutrophils 1 % (0-1) 08/17/19 06:04 Absolute Lymphocytes 0.8 K/uL (0.7-4.9) 08/17/19 06:04 Lymphocytes 11 % (15-42) L 08/17/19 06:04 Monocytes 10 % (0-10) 08/17/19 06:04 Absolute Monocytes 1.1 K/uL (0.1-1.3) 08/17/19 06:04 Absolute Eosinophils 0.1 K/uL (0-0.5) 08/17/19 06:04 Absolute Basophils 0.0 K/uL (0-0.5) 08/17/19 06:04 Metamyelocytes 1 % (0-0) H 08/17/19 06:04 Atypical Lymphocytes 1 08/17/19 06:04 Morphology Comment Not seen (NOT SEEN) 08/17/19 06:04 Sodium 138 mmol/L (136-145) 08/17/19 06:04 Potassium 3.6 mmol/L (3.5-5.1) 08/17/19 06:04 Chloride 108 mmol/L (98-107) H 08/17/19 06:04 Carbon Dioxide 27 mmol/L (21-32) 08/17/19 06:04 BUN 19 mg/dL (7-18) H 08/17/19 06:04 Creatinine 1.39 mg/dL (0.55-1.3) H 08/17/19 06:04 Estimated GFR 50 mL/min (=/>90) L 08/17/19 06:04 Glucose 84 mg/dL (74-106) 08/17/19 06:04 Calcium 8.3 mg/dL (8.5-10.1) L 08/17/19 06:04 Magnesium 2.2 mg/dL (1.8-2.4) D 08/17/19 06:04 Albumin 2.6 g/dL (3.4-5.0) L 08/17/19 06:04 Prealbumin 12.3 mg/dL (20-40) L 08/17/19 06:04 ABO/Rh O NEGATIVE 08/17/19 Unknown Antibody Screen Negative 08/17/19 07:40 Crossmatch See Detail 08/17/19 07:40 Weight: 232 lb 15.68 oz Wound Present: No Physician Update: His Hgb is 7.2 and will get 2 units of PRBCs. He has residual right arm and leg weakness and a chronic unrepaired right rotator cuff tear. He was only able to sit on the edge of the bed prior to his admission. Summary: Patient's care plan and intermediate goals have been reviewed and revised as necessary. Please see the Rehabilitation Signature page for all necessary signatures.
[2019-08-17] MEDS ORDERED: NA CHLORIDE 0.9% 250 ML IV SCH (11:00)
[2019-08-17] MEDS ORDERED: BISACODYL 10 MG RECTAL SUPP PR PRN (14:13)
--- NOTE | 2019-08-17 14:17 | R.HP ---
FACILITY: [facility] ENCOUNTER DATE AND TIME: 08/17/2019 14:03 (MOTOR ROUTE CARRIER) MR#: [id number] NAME LISS BURGESS ADDRESS: [address] [place] [address]: [place] STATE: [place]IP [id number] PHONE: DATE OF : 1945 AGE: 74 SSN# [id number] GENDER: Male DEXTERITY Right-handed MARITAL STATUS Single (Never ) RACE White PRE-HOSPITAL LIVING SETTING 01 - Home (private home/apt. board/care, assisted living, intermediate, transitional living) PRE-HOSPITAL LIVING WITH Family/Relatives ENCOUNTER PHYSICIAN: Dr. Harmeet Byers M.D. 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 SECONDARY/COMORBID DIAGNOSES (TIERED): - N/A HTN COPD HYPOTHYROIDISM CAD HX OF CVA CKD STAGE 3 SEVERE LUMBAR STENOSIS L3-L4 HISTORY OF PRESENT ILLNESS (HPI): Pt. is a 74 yo Right-handed white male. On 08/05/2019 Pt. presented to [facility] with sudden onset of right-side weakness. On 08/05/2019 he was admitted to [facility] with diagnosis Acute Ischemic Infract left posterio r limb of internal capsule. His impairment category is Stroke 01 - Right Body (Left Brain) (01.2). Pre-morbidly, Pt. was independent/mod-I in Locomotion, Balance, Social Cognition, Transfers Control, Self-Care, and Endurance; and he had good Locomotion, Balance, Social Cognition, Transfers Control, S phincter Control, Self-Care, Endurance, Safety Awareness, and Communication. Currently, he has deficits of Locomotion, Safety Awareness, Balance, Social Cognition, Transfers Cont rol, Self-Care, Communication, and Endurance. Pt. is now referred to [facility] for acute in-patient rehabilitation in order to maximize patient's functional independence in activities of daily living, strength, ROM, and mobi lity. Patient has realistic goal of being discharged at assistance level 6-Vi to reside at Home with Fam amena/Relatives. Liss Burgess is a 75 year old male that lives in a single david house. Modified independent with all ADLs and self care. On 08/05/2019, patient tried to get out of the bed when his legs felt weaker than normal and was admitted to [facility] and treated. He is now medically stable but in need of 24-hour nursing, doctor supervision and oversite participate in 3hours of therapy a day/15 hours per week and receive care with an intensive interdisciplinary approach. MEDICATION ALLERGIES: No Known Drug Allergies (NKDA) ENVIRONMENTAL ALLERGIES: None Known - Substance Allergies None Known - Other Allergies None Known PAST MEDICAL HISTORY: CAD CKD STAGE 3 COPD HTN HX OF CVA HYPOTHYROIDISM SEVERE LUMBAR STENOSIS L3-L4 PAST SURGICAL HISTORY: LUE ORIF CABG FAMILY HISTORY: Family history is not contributory. SOCIAL HISTORY: - Home Living Family/Relatives REVIEW OF SYSTEMS: - Gen No Chills Fatigue No Fever - Eyes No Double Vision No itchiness - ENMT No Difficulty Swallowing - CVS No Chest Discomfort No Chest Pain Fatigue No Weight Gain - Resp No Cough No Shortness of Breath - GI Continent No Abdominal Pain No Constipation No Diarrhea - Continent No Kidney Pain No Painful Urination No Urinary Urgency - MSK No Joint Pain Muscle Cramps Stiffness - Skin No Itching No Rash No Suspicious Lesions - Neuro Coordination Difficulty Difficulty with Concentration No Memory Loss No Seizures Weakness - Psych No Anxiety No Depression No HIV Exposure No Persistent Infections No Seasonal Allergies - Endo No Cold/Heat Intolerance No Excessive Hunger No Excessive Thirst No Excessive Urination PHYSICAL EXAM - Gen Alert and awake Lying in bed No apparent distress Oriented to: person, time, and place - Skin No skin breakdown. Normacephalic - Eyes No abnormalities - ENMT No abnormalities - Neck No abnormalities - CVS RRR - Resp Clear to auscultation - Abd Soft - GI Non distended Deferred - No abnormalities - Ext No significant edema. - MSK 4+/5 weakness in right upper and lower extremities - Neuro 4/5 strength right upper and lower extremities. - Psych No abnormalities VITAL SIGNS Temperature: 97.4 F SBP/DBP: 120/70 Pulse: 54 Resp: 16 NURSING: - Shower allowing shower - Bladder care per protocol - Skin care per protocol PRECAUTIONS: - Weight Bearing Precaution WBAT right LE ACTIVITIES OOB only with supervision QI SCORES: - Self-Care A. Eating 03-Partial/moderate assistance B. Oral hygiene 03-Partial/moderate assistance C. Toileting hygiene 03-Partial/moderate assistance E. Shower/bathe self 03-Partial/moderate assistance F. Upper body dressing 03-Partial/moderate assistance G. Lower body dressing 02-Substantial/maximal assistance H. Putting on/taking off footwear 02-Substantial/maximal assistance - Mobility A. Roll left and right 03-Partial/moderate assistance B. Sit to lying 03-Partial/moderate assistance C. Lying to sitting on side of bed 02-Substantial/maximal assistance D. Sit to stand 02-Substantial/maximal assistance E. Chair/[id number]-iv-nyokw transfer 02-Substantial/maximal assistance F. Toilet transfer 02-Substantial/maximal assistance G. Car transfer 88-Not attempted due to medical condition or safety concerns I. Walk 10 feet 88-Not attempted due to medical condition or safety concerns J. Walk 50 feet with two turns 88-Not attempted due to medical condition or safety concerns K. Walk 150 feet 88-Not attempted due to medical condition or safety concerns L. Walking 10 feet on uneven surfaces 88-Not attempted due to medical condition or safety concerns M. 1 step (curb) 88-Not attempted due to medical condition or safety concerns N. 4 steps 88-Not attempted due to medical condition or safety concerns O. 12 steps 88-Not attempted due to medical condition or safety concerns P. Picking up object 88-Not attempted due to medical condition or safety concerns R. Wheel 50 feet with two turns 88-Not attempted due to medical condition or safety concerns S. Wheel 150 feet 88-Not attempted due to medical condition or safety concerns - Bladder and Bowel Bladder continence 0-Always continent Bowel continence 0-Always continent - Endurance Poor - Balance Poor - Safety Awareness Fair CURRENT FUNC. DEFICITS: Self-Care, Mobility, Endurance, Balance, and Safety Awareness MEDICATIONS: - Other See attached MAR (Medication Administration Record) ASSESSMENT: Pt. is a 74 yo Right-handed white male.On 08/05/2019 Pt. presented to [facility] with sudden on set of right-side weakness.On 08/05/2019 he was admitted to [facility] with diagnosis Acute Isc hemic Infract left posterior limb of internal capsule.His impairment category is Stroke 01 - Right B santos (Left Brain) (01.2).Pre-morbidly, Pt. was independent/mod-I in Locomotion, Balance, Social Cognit ion, Transfers Control, Self-Care, and Endurance; and he had good Locomotion, Balance, Social Cogniti on, Transfers Control, Sphincter Control, Self-Care, Endurance, Safety Awareness, and Communication.C urrently, he has deficits of Locomotion, Safety Awareness, Balance, Social Cognition, Transfers Contr ol, Self-Care, Communication, and Endurance.Pt. is now referred to [facility] for acute in-patient rehabilitation in order to maximize patient's functional independence in activit ies of daily living, strength, ROM, and mobility.- Rehab Goal Patient has realistic goal of being discharged at assistance level 6-Vi to reside at Home with Fam amena/Relatives. Liss Burgess is a 75 year old male that lives in a single david house. Modified independent with all ADLs and self care. On 08/05/2019, patient tried to get out of the bed when his legs felt weaker than normal and was admitted to [facility] and treated. He is now medically stable but in need of 24-hour nursing, doctor supervision and oversite participate in 3hours of therapy a day/15 hours per week and receive care with an intensive interdisciplinary approach.REHAB PLAN: for Dementia, TBI, Stroke, or others - Physical Therapy Gait dysfunction - to improve, our physical therapists will perform initial evaluation of pt's status upon admission and devise an individualized program for Gait Training, and Wheel Chair mobility Inability to transfer - to improve, our physical therapists will perform initial evaluation of pt's s tatus upon admission and devise an individualized program for Bed mobility Need for home safety evaluation - to improve, our physical therapists will perform initial evaluation of pt's status upon admission and devise an individualized program for Home Evaluation Need in caregiver upon discharge - to improve, our physical therapists will perform initial evaluatio n of pt's status upon admission and devise an individualized program for Caregiver Training New precaution - to improve, our physical therapists will perform initial evaluation of pt's status u leobardo admission and devise an individualized program for Patient precaution education Edema - to improve, our physical therapists will perform initial evaluation of pt's status upon admi ssion and devise an individualized program for Elevation Training, and Lymphedema Therapy Poor balance - to improve, our physical therapists will perform initial evaluation of pt's status upo n admission and devise an individualized program for Balance Training Poor endurance - to improve, our physical therapists will perform initial evaluation of pt's status u leobardo admission and devise an individualized program for Endurance Training Weakness - to improve, our physical therapists will perform initial evaluation of pt's status upon ad mission and devise an individualized program for Aquatic Therapy, Neuromuscular Reeducation, and Stre ngthening Achieving independence - to improve, our physical therapists will perform initial evaluation of pt's status upon admission and devise an individualized program for Community Reintegration Activities - Occupational Therapy ADL deficits - to improve, our occupation therapists will perform initial evaluation of pt's status u leobardo admission and devise an individualized program for Bathing, Bed mobility, Community Reintegration , Cooking, Dressing, Eating, Fine Motor Skills, Grooming, Homemaking, Kitchen Mobility, Laundry, Alisha ent Education, Safety Awareness, Splinting - Positioning, Transfers(Toilet, Tub, Shower), and Wheel C hair Management Cognitive deficits - to improve, our occupation therapists will perform initial evaluation of pt's st atus upon admission and devise an individualized program for Cognition - orientation Need for health care coordinator - to improve, our occupation therapists will perform initial evaluation of pt's s tatus upon admission and devise an individualized program for Caregiver Training Weakness - to improve, our occupation therapists will perform initial evaluation of pt's status upon admission and devise an individualized program for Aquatic Therapy, Balance, Endurance, UE ROM, and U E strengthening MEDICAL PLAN: - Diet Type Start Regular - Diet - Liquid Texture Start Regular - Tube Feed Start N/A - Bladder care per protocol - Weight Bearing Precaution WBAT right LE - Skin care per protocol - Other See attached MAR (Medication Administration Record) - Diet - Solid Texture Regular - Shower shower DISCHARGE PLAN: - Estimated Length of Stay (days) 17. - Consensus on plan Discharge plan has been discussed with primary caregiver. Patient/Family is in agreement with the thea n. Primary caregiver is in agreement with the plan. - Patient/Family Goals Return home with assistance. - Planned Living Setting Upon Discharge Home, to live with Family/Relatives. Transitional Living. SIGNATURE PANEL: (MOTOR ROUTE CARRIER)
--- NOTE | 2019-08-17 14:20 | PAPE ---
PATIENT: [facility] MR# [id number] REFERRING DOCTOR mariama Adams EVALUATION DATE AND TIME 08/17/2019 14:18 (ASSISTANT PROFESSOR OF BUSINESS) NAME LISS BURGESS DATE OF 1945 AGE 74 PHONE SSN# [id number] GENDER male EVALUATING PHYSICIAN Dr. Harmeet Byers M.D. ADMISSION DIAGNOSIS: Acute Ischemic Infract left posterior limb of internal capsule ONSET DATE 08/05/2019 SECONDARY/COMORBID DIAGNOSES TIERED: - N/A HTN COPD HYPOTHYROIDISM CAD HX OF CVA CKD STAGE 3 SEVERE LUMBAR STENOSIS L3-L4 POST-ADMISSION FUNCTIONAL/MEDICAL STATUS: - Bladder Same accident frequency: Ind - No accidents in the past 7 days - Bowel Same accident frequency: Ind - No accidents in the past 7 days - Walking Same score based on distance walked: 0(N/A) - Wheelchair Same score based on distance traveled: 0(N/A) STATUS CHANGE EVALUATION: No change in Functional or Medical Status is identified compared with Pre-Admission screening. PATIENT NEEDS CLOSE MEDICAL SUPERVISION BY A REHABILITATION PHYSICIAN FOR: Coordination of Treatment Team Medical and Co-Morbidity Management PATIENT REQUIRES 24X7 REHAB NURSING FOR MEDICAL AND FUNCTIONAL MGT. OF THE FOLLOWING DEFICITS: Disease Management Medication Management Patient/Family Education Providing Safe Environment PATIENT REQUIRES INTENSIVE, COORDINATED INTERDISCIPLINARY APPROACH TO REHAB: Arranging Home Equipment/Services Discharge Planning Family Intervention/Training Finance Lecturer/Case Management LIST OF IDENTIFIED AND POTENTIAL PROBLEMS: Alteration in leisure activities Bladder, Incontinence Bowel, Incontinence Infection, Actual or Potential Mobility Impaired Pain, Alteration in Comfort Self Care Deficit Skin Integrity, Actual or Potential Urinary Tract Infection (UTI), Actual or Potential RISK FOR COMPLICATIONS - COPD Acute Resp failure. Pneumonia. Resp. Arrest. - CAD CHF. Cardiac Arrest. GA. Pain. INTERVENTIONS - COPD 02 sats. Medications. Nebulizers. Oxygen. Resp. therapy. X-rays. - CAD 02 sats. Activity management. Medications. VS. PATIENT COULD BE AT RISK FOR COMPLICATIONS FROM ADVERSE MEDICAL CONDITIONS DUE TO HIS/HER COMORBIDITI ES AND THE RIGORS OF THE INTENSIVE REHABILLITATION PROGRAM. METHODS OR INTERVENTIONS TO AVOID COMPLIC ATIONS INCLUDE: - Bleeding Stroke patients assessed for lethargy or change in status. - Infection Clinical staff to assess and manage the signs and symptoms of infection including fever, redness, war mth, etc. - Urinary Tract Infection - Aspiration Clinical staff will assess and manage coughing, drooling, congestion. - Falls Patient will be evaluated for Fall Precautions and will be placed on Fall Precautions as indicated pe r protocol. - Skin Breakdown Nursing will assess skin daily using assessment tool and will place on Skin Breakdown Precautions as indicated per protocol. - Pain Clinical staff may employ non-medication methods such as massage, distraction, decrease stimulus, etc . as needed. Clinical staff will assess patient's pain level every shift per protocol to assess and e nsure pain management effectiveness. Medications will be given and the pain level re-assessed. PRELIMINARY PLAN OF CARE: - Physical Therapy Patient needs Physical Therapy for a daily minimum of 1.5 hours at least 5 out of 7 days, to improve: Mobility, Strengthening, Transfers, Stretching, ROM, Endurance, Ability to manage stairs, Gait, and Balance. - Speech Therapy Patient needs Speech Therapy for a daily minimum of 0.5 hours at least 5 out of 7 days, to improve: S wallowing, Cognition, Language Skills, and Compensatory Strategies. - Rehabilitation Nursing Patient requires 24x7 Rehabilitation Nursing for: Pain Issues, Identifying and preventing risk factor s, Monitoring and reporting current medical conditions, Assisting with ambulation and transfer, Finn ting with all ADL-s, Teaching patients about disease process and medications, Family teaching, Provid ing safe environment, Bowel and Bladder Issues, Skin Integrity, and Medication Management. Patient needs Finance Lecturer and/or Case Management for: Discharge Planning, Arranging Home Equipmen t or Services, and Family Interventions. - Dietary and Nutrition Services Patient needs Dietary and Nutrition Services for: Adequate Nutrition, Nutritional Supplements, and Nu tritional Education. - Occupational Therapy Patient needs Occupational Therapy for a daily minimum of 1.5 hours at least 5 out of 7 days, to impr ove Activities of Daily Living, including: Eating, Grooming, Bathing, Dressing, Toileting, Toilet Tra nsfers, Community Reintegration, Higher functional activities, Adaptive Equipment, Splinting, Househo ld Tasks, and Other activities as determined. QI SCORES: - Self-Care A. Eating 03-Partial/moderate assistance B. Oral hygiene 03-Partial/moderate assistance C. Toileting hygiene 03-Partial/moderate assistance E. Shower/bathe self 03-Partial/moderate assistance F. Upper body dressing 03-Partial/moderate assistance G. Lower body dressing 02-Substantial/maximal assistance H. Putting on/taking off footwear 02-Substantial/maximal assistance - Mobility A. Roll left and right 03-Partial/moderate assistance B. Sit to lying 03-Partial/moderate assistance C. Lying to sitting on side of bed 02-Substantial/maximal assistance D. Sit to stand 02-Substantial/maximal assistance E. Chair/iql-jf-[id number] transfer 02-Substantial/maximal assistance F. Toilet transfer 02-Substantial/maximal assistance G. Car transfer 88-Not attempted due to medical condition or safety concerns I. Walk 10 feet 88-Not attempted due to medical condition or safety concerns J. Walk 50 feet with two turns 88-Not attempted due to medical condition or safety concerns K. Walk 150 feet 88-Not attempted due to medical condition or safety concerns L. Walking 10 feet on uneven surfaces 88-Not attempted due to medical condition or safety concerns M. 1 step (curb) 88-Not attempted due to medical condition or safety concerns N. 4 steps 88-Not attempted due to medical condition or safety concerns O. 12 steps 88-Not attempted due to medical condition or safety concerns P. Picking up object 88-Not attempted due to medical condition or safety concerns R. Wheel 50 feet with two turns 88-Not attempted due to medical condition or safety concerns S. Wheel 150 feet 88-Not attempted due to medical condition or safety concerns - Bladder and Bowel Bladder continence 0-Always continent Bowel continence 0-Always continent - Endurance Poor - Balance Poor - Safety Awareness Fair POTENTIAL FUNCTIONAL GOALS FOR PATIENT TO ACHIEVE BY DISCHARGE: - Safety Precaution Patient will remain free from falls or injury at time of discharge. - Bed Mobility Patient will perform bed mobility at 4-Carli level of assistance. - Transfers Patient will complete transfers from bed to chair at 4-Carli level of assistance. - Mobility Patient will ambulate 150 ft with 4-Carli level of assistance with RW. PATIENT REHAB POTENTIAL Glenis BURGESS is able and expected to receive 3 hours of individualized therapy daily on at least 5 of every 7 days Glenis BURGESS's prognosis for significant practical improvement within a reasonable period of time vee ears Good Expected level of measurable improvement will be of a practical value to Glenis BURGESS's functional ca pacity or adaptations to impairments Has a viable Discharge Plan Medically appropriate; condition is sufficiently stable to participate in intensive rehab program DISCHARGE PLAN: - Estimated Length of Stay (days) 17. - Consensus on plan Discharge plan has been discussed with primary caregiver. Patient/Family is in agreement with the thea n. Primary caregiver is in agreement with the plan. - Patient/Family Goals Return home with assistance. - Planned Living Setting Upon Discharge Home, to live with Family/Relatives. Transitional Living. CONCLUSION ON REHABILITATION NECESSITY: I have evaluated patient's pre-admission functional status and, comparing it to the patient's post-ad mission functional status now, I conclude that the pre-admission assessment was accurate. Patient's c ondition on admission supports the medical necessity of admission to [facility]. It is safe to proceed with patient's therapy program. SIGNATURE PANEL: (ASSISTANT PROFESSOR OF BUSINESS)
[2019-08-17 17:11] LABS: Urine Appearance CLEAR; Urine Bilirubin NEGATIVE (NEG); Urine Blood NEGATIVE (NEG); Urine Color YELLOW; Urine Glucose NEGATIVE (NEG); Urine Protein NEGATIVE (NEG); Urine pH 5.5 (5.0-7.0)
[2019-08-17 17:34] LABS: Urine Bacteria 20-50 /HPF (NONE SEEN); Urine Culture Reflex Order NOT NEEDED; Urine RBC <5 /HPF (NONE SEEN)
[2019-08-17 20:36] LABS: Hematocrit 26.3 % (39.6-49.0)
[2019-08-17] MEDS: DOCUSATE NA/SENNA CONC 1 TAB PO SCH (21:24)
[2019-08-17] MEDS: ATORVASTATIN 80 MG TAB PO SCH (21:24)
[2019-08-18] MEDS: GABAPENTIN 300 MG CAP PO SCH ×3 (01:55→16:57)
--- NOTE | 2019-08-18 02:04 | FAST ---
SHIFT START DATE/TIME: 08/17/2019 19:00 (WOOL SACKER) SHIFT END DATE/TIME: 08/18/2019 07:00 (WOOL SACKER) NAME LISS BURGESS DATE OF : 1945 DATE OF ADMISSION: 08/17/2019 14:04 (WOOL SACKER) PHONE: AGE: 74 SSN# [id number] GENDER: Male ENCOUNTER PHYSICIAN: Dr. Harmeet Byers M.D. 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 EATING: Not assessed/no information CODE: - ORAL HYGIENE: Not assessed/no information CODE: - TOILETING HYGIENE: TOILETING HYGIENE - STEP 1: Does the patient complete the activity by him/herself with no assistance (physical, verbal/nonverbal cueing, setup/clean-up)? No. TOILETING HYGIENE - STEP 2: Does the patient need only setup/clean-up assistance from one helper? No. TOILETING HYGIENE - STEP 3: Does the patient need only verbal/nonverbal cueing or touching/steadying/contact guard assistance fro m one helper? No. TOILETING HYGIENE - STEP 4: Does the patient need physical assistance - for example lifting or trunk support from one helper - wi th the helper providing less than half of the effort? No. TOILETING HYGIENE - STEP 5: Does the patient need physical assistance - for example lifting or trunk support from one helper - wi th the helper providing more than half of the effort? No. TOILETING HYGIENE - STEP 6: Does the helper provide all of the effort? OR Is the assistance of two or more helpers required to co mplete the activity? Yes. 1. [id number] ADMISSION PERFORMANCE: Dependent CODE: 01 BATHING: Not assessed/no information CODE: - DRESSING - UPPER BODY: Not assessed/no information CODE: - DRESSING - LOWER BODY: Not assessed/no information CODE: - PUTTING ON/TAKING OFF FOOTWEAR: Not assessed/no information CODE: - ROLL LEFT AND RIGHT: ROLL LEFT AND RIGHT - STEP 1: Does the patient complete the activity by him/herself with no assistance (physical, verbal/nonverbal cueing, setup/clean-up)? No. ROLL LEFT AND RIGHT - STEP 2: Does the patient need only setup/clean-up assistance from one helper? No. ROLL LEFT AND RIGHT - STEP 3: Does the patient need only verbal/nonverbal cueing or touching/steadying/contact guard assistance fro m one helper? No. ROLL LEFT AND RIGHT - STEP 4: Does the patient need physical assistance - for example lifting or trunk support from one helper - wi th the helper providing less than half of the effort? No. ROLL LEFT AND RIGHT - STEP 5: Does the patient need physical assistance - for example lifting or trunk support from one helper - wi th the helper providing more than half of the effort? No. ROLL LEFT AND RIGHT - STEP 6: Does the helper provide all of the effort? OR Is the assistance of two or more helpers required to co mplete the activity? Yes. 1. [id number] ADMISSION PERFORMANCE: Dependent CODE: 01 SIT TO LYING: Not assessed/no information CODE: - LYING TO SITTING: Not assessed/no information CODE: - SIT TO STAND: Not assessed/no information CODE: - TRANSFERS: BED, CHAIR: Not assessed/no information CODE: - TRANSFER TOILET: Not assessed/no information CODE: - TRANSFERS: CAR: Not assessed/no information CODE: - WALK 10 FEET: Not assessed/no information CODE: - 1 STEP (CURB): Not assessed/no information CODE: - PICKING UP OBJECT: Not assessed/no information CODE: - DOES THE PATIENT USE A WHEELCHAIR/SCOOTER? CODE: EXPR WHEEL 50 FEET WITH TWO TURNS: Not assessed/no information CODE: - INDICATE THE TYPE OF WHEELCHAIR/SCOOTER USED: CODE: EXPR WHEEL 150 FEET: Not assessed/no information CODE: - INDICATE THE TYPE OF WHEELCHAIR/SCOOTER USED: CODE: EXPR BLADDER AND BOWEL: H350. BLADDER CONTINENCE (3-DAY ASSESSMENT PERIOD): Always incontinent CODE: 4 H400. BOWEL CONTINENCE (3-DAY ASSESSMENT PERIOD): Always incontinent (no episodes of continent bowel movements) CODE: 3
[2019-08-18] MEDS: HYDROCODONE/APAP 10/325 TAB PO PRN (05:26)
[2019-08-18] MEDS: LEVOTHYROXINE SOD 0.112 MG TAB PO SCH (07:37)
[2019-08-18] MEDS: TRAMADOL HCL 50 MG TAB PO PRN ×2 (09:00→16:56)
[2019-08-18] MEDS: NICOTINE 14 MG/PAT TD SCH (09:00)
[2019-08-18] MEDS: FE SULF/FA/VIT B COMP & C TAB PO SCH (09:02)
[2019-08-18] MEDS: DULOXETINE 20 MG CAP PO SCH (09:02)
[2019-08-18] MEDS: CLOPIDOGREL 75 MG TABLET PO SCH (09:03)
[2019-08-18] MEDS: PROMOD 30 ML DOSE PO SCH ×2 (09:03→20:37)
[2019-08-18] MEDS: FERROUS SULFATE 325 MG TAB PO SCH (09:03)
[2019-08-18] MEDS: ASPIRIN 81 MG CHEWABLE TABLET PO SCH (09:03)
--- NOTE | 2019-08-18 13:31 | FAST ---
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 Harmeet Byers M.D. 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 ROLL LEFT AND RIGHT: ROLL LEFT AND RIGHT - STEP 1: Does the patient complete the activity by him/herself with no assistance (physical, verbal/nonverbal cueing, setup/clean-up)? No. ROLL LEFT AND RIGHT - STEP 2: Does the patient need only setup/clean-up assistance from one helper? No. ROLL LEFT AND RIGHT - STEP 3: Does the patient need only verbal/nonverbal cueing or touching/steadying/contact guard assistance fro m one helper? No. ROLL LEFT AND RIGHT - STEP 4: Does the patient need physical assistance - for example lifting or trunk support from one helper - wi th the helper providing less than half of the effort? No. ROLL LEFT AND RIGHT - STEP 5: Does the patient need physical assistance - for example lifting or trunk support from one helper - wi th the helper providing more than half of the effort? Yes. 1. [id number] ADMISSION PERFORMANCE: Substantial/maximal assistance CODE: 02 SIT TO LYING: SIT TO LYING - STEP 1: Does the patient complete the activity by him/herself with no assistance (physical, verbal/nonverbal cueing, setup/clean-up)? No. SIT TO LYING - STEP 2: Does the patient need only setup/clean-up assistance from one helper? No. SIT TO LYING - STEP 3: Does the patient need only verbal/nonverbal cueing or touching/steadying/contact guard assistance fro m one helper? No. SIT TO LYING - STEP 4: Does the patient need physical assistance - for example lifting or trunk support from one helper - wi th the helper providing less than half of the effort? No. SIT TO LYING - STEP 5: Does the patient need physical assistance - for example lifting or trunk support from one helper - wi th the helper providing more than half of the effort? Yes. 1. [id number] ADMISSION PERFORMANCE: Substantial/maximal assistance CODE: 02 LYING TO SITTING: LYING TO SITTING ON SIDE OF BED - STEP 1: Does the patient complete the activity by him/herself with no assistance (physical, verbal/nonverbal cueing, setup/clean-up)? No. LYING TO SITTING ON SIDE OF BED - STEP 2: Does the patient need only setup/clean-up assistance from one helper? No. LYING TO SITTING ON SIDE OF BED - STEP 3: Does the patient need only verbal/nonverbal cueing or touching/steadying/contact guard assistance fro m one helper? No. LYING TO SITTING ON SIDE OF BED - STEP 4: Does the patient need physical assistance - for example lifting or trunk support from one helper - wi th the helper providing less than half of the effort? No. LYING TO SITTING ON SIDE OF BED - STEP 5: Does the patient need physical assistance - for example lifting or trunk support from one helper - wi th the helper providing more than half of the effort? Yes. 1. [id number] ADMISSION PERFORMANCE: Substantial/maximal assistance CODE: 02 SIT TO STAND: Not attempted due to medical condition or safety concerns CODE: 88 [id number] - COMMENTS: Pt unable to bear wt on BLE to achieve standing at this time due to weakness. TRANSFERS: BED, CHAIR: CHAIR/[id number] TRANSFER - STEP 1: Does the patient complete the activity by him/herself with no assistance (physical, verbal/nonverbal cueing, setup/clean-up)? No. CHAIR/[id number] TRANSFER - STEP 2: Does the patient need only setup/clean-up assistance from one helper? No. CHAIR/[id number] TRANSFER - STEP 3: Does the patient need only verbal/nonverbal cueing or touching/steadying/contact guard assistance fro m one helper? No. CHAIR/[id number] TRANSFER - STEP 4: Does the patient need physical assistance - for example lifting or trunk support from one helper - wi th the helper providing less than half of the effort? No. CHAIR/[id number] TRANSFER - STEP 5: Does the patient need physical assistance - for example lifting or trunk support from one helper - wi th the helper providing more than half of the effort? No. CHAIR/[id number] TRANSFER - STEP 6: Does the helper provide all of the effort? OR Is the assistance of two or more helpers required to co mplete the activity? Yes. 1. [id number] ADMISSION PERFORMANCE: Dependent CODE: [id number] - COMMENTS: Patient requires Max A +2 person assist with use of sliding board. TRANSFER TOILET: Not attempted due to medical condition or safety concerns CODE: 88 TRANSFERS: CAR: Not attempted due to medical condition or safety concerns CODE: 88 WALK 10 FEET: Not attempted due to medical condition or safety concerns CODE: 88 1 STEP (CURB): Not attempted due to medical condition or safety concerns CODE: 88 PICKING UP OBJECT: Not attempted due to medical condition or safety concerns CODE: 88 DOES THE PATIENT USE A WHEELCHAIR/SCOOTER? Q1. DOES THE PATIENT USE A WHEELCHAIR/SCOOTER?: Yes CODE: 1 WHEEL 50 FEET WITH TWO TURNS: Not attempted due to medical condition or safety concerns CODE: 88 INDICATE THE TYPE OF WHEELCHAIR/SCOOTER USED: CODE: EXPR WHEEL 150 FEET: Not attempted due to medical condition or safety concerns CODE: 88 INDICATE THE TYPE OF WHEELCHAIR/SCOOTER USED: CODE: EXPR [id number] - COMMENTS: Pt attempted to perform w/c mobility but unable at this time due to R sidedweakness and pain on L elb ow BLADDER AND BOWEL: CODE: EXPR CODE: EXPR SIGNATURE PANEL: The following modified sections: 1. [id number] Admission Performance, 1. [id number] Admission Performance, 1. [id number] Admission Performance, [id number] - Comments:, 1. [id number] Admission Performance, [id number] - Co mments:, Q1. Does the patient use a wheelchair/scooter?, Code, [id number] - Comments: were [electronic ally] signed by Manan Olvera on Sat Aug 18 2019 13:30:37 GMT-0600 (Central Standard Time)
--- NOTE | 2019-08-18 15:32 | FAST ---
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 Harmeet Byers M.D. 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 EATING: EATING - STEP 1: Does the patient complete the activity by him/herself with no assistance (physical, verbal/nonverbal cueing, setup/clean-up)? No. EATING - STEP 2: Does the patient need only setup/clean-up assistance from one helper? No. EATING - STEP 3: Does the patient need only verbal/nonverbal cueing or touching/steadying/contact guard assistance fro m one helper? No. EATING - STEP 4: Does the patient need physical assistance - for example lifting or trunk support from one helper - wi th the helper providing less than half of the effort? No. EATING - STEP 5: Does the patient need physical assistance - for example lifting or trunk support from one helper - wi th the helper providing more than half of the effort? Yes. 1. [id number] ADMISSION PERFORMANCE: Substantial/maximal assistance CODE: 02 ORAL HYGIENE: Not attempted due to environmental limitations (e.g., lack of equipment, weather constraints) CODE: 10 [id number] - COMMENTS: Pt wears upper and lower dentures however they are not at hospital TOILETING HYGIENE: TOILETING HYGIENE - STEP 1: Does the patient complete the activity by him/herself with no assistance (physical, verbal/nonverbal cueing, setup/clean-up)? No. TOILETING HYGIENE - STEP 2: Does the patient need only setup/clean-up assistance from one helper? No. TOILETING HYGIENE - STEP 3: Does the patient need only verbal/nonverbal cueing or touching/steadying/contact guard assistance fro m one helper? No. TOILETING HYGIENE - STEP 4: Does the patient need physical assistance - for example lifting or trunk support from one helper - wi th the helper providing less than half of the effort? No. TOILETING HYGIENE - STEP 5: Does the patient need physical assistance - for example lifting or trunk support from one helper - wi th the helper providing more than half of the effort? No. TOILETING HYGIENE - STEP 6: Does the helper provide all of the effort? OR Is the assistance of two or more helpers required to co mplete the activity? Yes. 1. ADMISSION PERFORMANCE: Dependent CODE: - COMMENTS: Assist x 2 people with clothing management for urinal use in bed BATHING: SHOWER/BATHE SELF - STEP 1: Does the patient complete the activity by him/herself with no assistance (physical, verbal/nonverbal cueing, setup/clean-up)? No. SHOWER/BATHE SELF - STEP 2: Does the patient need only setup/clean-up assistance from one helper? No. SHOWER/BATHE SELF - STEP 3: Does the patient need only verbal/nonverbal cueing or touching/steadying/contact guard assistance fro m one helper? No. SHOWER/BATHE SELF - STEP 4: Does the patient need physical assistance - for example lifting or trunk support from one helper - wi th the helper providing less than half of the effort? No. SHOWER/BATHE SELF - STEP 5: Does the patient need physical assistance - for example lifting or trunk support from one helper - wi th the helper providing more than half of the effort? No. SHOWER/BATHE SELF - STEP 6: Does the helper provide all of the effort? OR Is the assistance of two or more helpers required to co mplete the activity? Yes. 1. ADMISSION PERFORMANCE: Dependent CODE: - COMMENTS: Assist x 2 people for bathing DRESSING - UPPER BODY: Not attempted due to environmental limitations (e.g., lack of equipment, weather constraints) CODE: F - COMMENTS: Clean street clothing unavailable; hospital gown only DRESSING - LOWER BODY: Not attempted due to environmental limitations (e.g., lack of equipment, weather constraints) CODE: G - COMMENTS: Clean street clothing unavailable; hospital brief PUTTING ON/TAKING OFF FOOTWEAR: FOOTWEAR - STEP 1: Does the patient complete the activity by him/herself with no assistance (physical, verbal/nonverbal cueing, setup/clean-up)? No. FOOTWEAR - STEP 2: Does the patient need only setup/clean-up assistance from one helper? No. FOOTWEAR - STEP 3: Does the patient need only verbal/nonverbal cueing or touching/steadying/contact guard assistance fro m one helper? No. FOOTWEAR - STEP 4: Does the patient need physical assistance - for example lifting or trunk support from one helper - wi th the helper providing less than half of the effort? No. FOOTWEAR - STEP 5: Does the patient need physical assistance - for example lifting or trunk support from one helper - wi th the helper providing more than half of the effort? No. FOOTWEAR - STEP 6: Does the helper provide all of the effort? OR Is the assistance of two or more helpers required to co mplete the activity? Yes. 1. [id number] ADMISSION PERFORMANCE: Dependent CODE: 01 DOES THE PATIENT USE A WHEELCHAIR/SCOOTER? CODE: EXPR INDICATE THE TYPE OF WHEELCHAIR/SCOOTER USED: CODE: EXPR INDICATE THE TYPE OF WHEELCHAIR/SCOOTER USED: CODE: EXPR BLADDER AND BOWEL: CODE: EXPR CODE: EXPR SIGNATURE PANEL: The following modified sections: 1. [id number] Admission Performance, [id number] - Comments:, 1. [id number] Ad mission Performance, [id number] - Comments:, 1. [id number] Admission Performance, [id number] - Comments:, [id number] - Comments:, [id number] - Comments:, 1. [id number] Admission Performance were [electronically] signed Krish Adair OT on Sat Aug 18 2019 15:31:30 GMT-0600 (Central Standard Time)
--- NOTE | 2019-08-18 16:39 | FAST ---
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 Harmeet Byers M.D. 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 EATING: EATING - STEP 1: Does the patient complete the activity by him/herself with no assistance (physical, verbal/nonverbal cueing, setup/clean-up)? No. EATING - STEP 2: Does the patient need only setup/clean-up assistance from one helper? No. EATING - STEP 3: Does the patient need only verbal/nonverbal cueing or touching/steadying/contact guard assistance fro m one helper? No. EATING - STEP 4: Does the patient need physical assistance - for example lifting or trunk support from one helper - wi th the helper providing less than half of the effort? No. EATING - STEP 5: Does the patient need physical assistance - for example lifting or trunk support from one helper - wi th the helper providing more than half of the effort? Yes. 1. [id number] ADMISSION PERFORMANCE: Substantial/maximal assistance CODE: 02 ORAL HYGIENE: Not assessed/no information CODE: - TOILETING HYGIENE: TOILETING HYGIENE - STEP 1: Does the patient complete the activity by him/herself with no assistance (physical, verbal/nonverbal cueing, setup/clean-up)? No. TOILETING HYGIENE - STEP 2: Does the patient need only setup/clean-up assistance from one helper? No. TOILETING HYGIENE - STEP 3: Does the patient need only verbal/nonverbal cueing or touching/steadying/contact guard assistance fro m one helper? No. TOILETING HYGIENE - STEP 4: Does the patient need physical assistance - for example lifting or trunk support from one helper - wi th the helper providing less than half of the effort? No. TOILETING HYGIENE - STEP 5: Does the patient need physical assistance - for example lifting or trunk support from one helper - wi th the helper providing more than half of the effort? No. TOILETING HYGIENE - STEP 6: Does the helper provide all of the effort? OR Is the assistance of two or more helpers required to co mplete the activity? Yes. 1. [id number] ADMISSION PERFORMANCE: Dependent CODE: 01 BATHING: Not assessed/no information CODE: - DRESSING - UPPER BODY: Not attempted due to medical condition or safety concerns CODE: 88 DRESSING - LOWER BODY: Not attempted due to medical condition or safety concerns CODE: 88 PUTTING ON/TAKING OFF FOOTWEAR: Not attempted due to medical condition or safety concerns CODE: 88 ROLL LEFT AND RIGHT: ROLL LEFT AND RIGHT - STEP 1: Does the patient complete the activity by him/herself with no assistance (physical, verbal/nonverbal cueing, setup/clean-up)? No. ROLL LEFT AND RIGHT - STEP 2: Does the patient need only setup/clean-up assistance from one helper? No. ROLL LEFT AND RIGHT - STEP 3: Does the patient need only verbal/nonverbal cueing or touching/steadying/contact guard assistance fro m one helper? No. ROLL LEFT AND RIGHT - STEP 4: Does the patient need physical assistance - for example lifting or trunk support from one helper - wi th the helper providing less than half of the effort? No. ROLL LEFT AND RIGHT - STEP 5: Does the patient need physical assistance - for example lifting or trunk support from one helper - wi th the helper providing more than half of the effort? Yes. 1. [id number] ADMISSION PERFORMANCE: Substantial/maximal assistance CODE: 02 SIT TO LYING: SIT TO LYING - STEP 1: Does the patient complete the activity by him/herself with no assistance (physical, verbal/nonverbal cueing, setup/clean-up)? No. SIT TO LYING - STEP 2: Does the patient need only setup/clean-up assistance from one helper? No. SIT TO LYING - STEP 3: Does the patient need only verbal/nonverbal cueing or touching/steadying/contact guard assistance fro m one helper? No. SIT TO LYING - STEP 4: Does the patient need physical assistance - for example lifting or trunk support from one helper - wi th the helper providing less than half of the effort? No. SIT TO LYING - STEP 5: Does the patient need physical assistance - for example lifting or trunk support from one helper - wi th the helper providing more than half of the effort? No. SIT TO LYING - STEP 6: Does the helper provide all of the effort? OR Is the assistance of two or more helpers required to co mplete the activity? Yes. 1. [id number] ADMISSION PERFORMANCE: Dependent CODE: 01 LYING TO SITTING: LYING TO SITTING ON SIDE OF BED - STEP 1: Does the patient complete the activity by him/herself with no assistance (physical, verbal/nonverbal cueing, setup/clean-up)? No. LYING TO SITTING ON SIDE OF BED - STEP 2: Does the patient need only setup/clean-up assistance from one helper? No. LYING TO SITTING ON SIDE OF BED - STEP 3: Does the patient need only verbal/nonverbal cueing or touching/steadying/contact guard assistance fro m one helper? No. LYING TO SITTING ON SIDE OF BED - STEP 4: Does the patient need physical assistance - for example lifting or trunk support from one helper - wi th the helper providing less than half of the effort? No. LYING TO SITTING ON SIDE OF BED - STEP 5: Does the patient need physical assistance - for example lifting or trunk support from one helper - wi th the helper providing more than half of the effort? Yes. 1. [id number] ADMISSION PERFORMANCE: Substantial/maximal assistance CODE: 02 SIT TO STAND: Not attempted due to medical condition or safety concerns CODE: 88 TRANSFERS: BED, CHAIR: Not attempted due to medical condition or safety concerns CODE: 88 TRANSFER TOILET: Not attempted due to medical condition or safety concerns CODE: 88 TRANSFERS: CAR: Not assessed/no information CODE: - WALK 10 FEET: Not assessed/no information CODE: - 1 STEP (CURB): Not assessed/no information CODE: - PICKING UP OBJECT: Not assessed/no information CODE: - DOES THE PATIENT USE A WHEELCHAIR/SCOOTER? Q1. DOES THE PATIENT USE A WHEELCHAIR/SCOOTER?: Yes CODE: 1 WHEEL 50 FEET WITH TWO TURNS: Not attempted due to medical condition or safety concerns CODE: 88 INDICATE THE TYPE OF WHEELCHAIR/SCOOTER USED: RR1. INDICATE THE TYPE OF WHEELCHAIR/SCOOTER USED.: Manual CODE: 1 WHEEL 150 FEET: Not attempted due to medical condition or safety concerns CODE: 88 INDICATE THE TYPE OF WHEELCHAIR/SCOOTER USED: SS1. INDICATE THE TYPE OF WHEELCHAIR/SCOOTER USED.: Manual CODE: 1 BLADDER AND BOWEL: H350. BLADDER CONTINENCE (3-DAY ASSESSMENT PERIOD): Incontinent daily (at least once a day) CODE: 3 H400. BOWEL CONTINENCE (3-DAY ASSESSMENT PERIOD): Always continent CODE: 0 SIGNATURE PANEL: The following modified sections: 1. [id number] Admission Performance, 1. [id number] Admission Performance, 1. [id number] Admission Performance, 1. [id number] Admission Performance, 1. [id number] Admission Performance, 1. [id number] Admission Performance, 1. [id number] Admission Performance, Q1. Does the patient use a wheel chair/scooter?, RR1. Indicate the type of wheelchair/scooter used., Code, SS1. Indicate the type of w heelchair/scooter used., H350. Bladder Continence (3-day assessment period), H400. Bowel Continence ( 3-day assessment period) were [electronically] signed by Catrina MatthewsNJaleesa on Sat Aug 18 2019 16:3 8:43 T-0600 (Central Standard Time)
[2019-08-18 18:08] VITALS: BMI 32.3
[2019-08-18] MEDS: DOCUSATE NA/SENNA CONC 1 TAB PO SCH (20:37)
[2019-08-18] MEDS: ATORVASTATIN 80 MG TAB PO SCH (20:37)
[2019-08-19] MEDS: GABAPENTIN 300 MG CAP PO SCH ×3 (00:28→17:07)
[2019-08-19] MEDS: LEVOTHYROXINE SOD 0.112 MG TAB PO SCH (07:31)
[2019-08-19] MEDS: CLOPIDOGREL 75 MG TABLET PO SCH (08:38)
[2019-08-19] MEDS: FERROUS SULFATE 325 MG TAB PO SCH (08:38)
[2019-08-19] MEDS: DULOXETINE 20 MG CAP PO SCH (08:38)
[2019-08-19] MEDS: NICOTINE 14 MG/PAT TD SCH (08:38)
[2019-08-19] MEDS: ASPIRIN 81 MG CHEWABLE TABLET PO SCH (08:39)
[2019-08-19] MEDS: FE SULF/FA/VIT B COMP & C TAB PO SCH (08:39)
[2019-08-19] MEDS: PROMOD 30 ML DOSE PO SCH ×2 (08:39→21:34)
[2019-08-19] MEDS: DOCUSATE NA/SENNA CONC 1 TAB PO SCH (21:00)
[2019-08-19] MEDS: CRANBERRY FRUIT EXTRACT 200 MG CAP PO SCH (21:33)
[2019-08-19] MEDS: ATORVASTATIN 80 MG TAB PO SCH (21:33)
[2019-08-20] MEDS: GABAPENTIN 300 MG CAP PO SCH ×3 (00:40→17:33)
[2019-08-20] MEDS: LEVOTHYROXINE SOD 0.112 MG TAB PO SCH (06:26)
[2019-08-20] MEDS: PROMOD 30 ML DOSE PO SCH ×2 (08:00→19:47)
[2019-08-20] MEDS: DULOXETINE 20 MG CAP PO SCH (08:21)
[2019-08-20] MEDS: FERROUS SULFATE 325 MG TAB PO SCH (08:21)
[2019-08-20] MEDS: FE SULF/FA/VIT B COMP & C TAB PO SCH (08:21)
[2019-08-20] MEDS: ASPIRIN 81 MG CHEWABLE TABLET PO SCH (08:21)
[2019-08-20] MEDS: TRAMADOL HCL 50 MG TAB PO PRN ×2 (08:22→19:46)
[2019-08-20] MEDS: CLOPIDOGREL 75 MG TABLET PO SCH (08:22)
[2019-08-20] MEDS: CRANBERRY FRUIT EXTRACT 200 MG CAP PO SCH ×2 (08:23→19:46)
[2019-08-20] MEDS: NICOTINE 14 MG/PAT TD SCH (08:23)
[2019-08-20] MEDS: LIDOCAINE 4% PATCH TOP SCH (09:26)
--- NOTE | 2019-08-20 10:10 | FAST ---
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 Harmeet Byers M.D. 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 EATING: EATING - STEP 1: Does the patient complete the activity by him/herself with no assistance (physical, verbal/nonverbal cueing, setup/clean-up)? No. EATING - STEP 2: Does the patient need only setup/clean-up assistance from one helper? No. EATING - STEP 3: Does the patient need only verbal/nonverbal cueing or touching/steadying/contact guard assistance fro m one helper? No. EATING - STEP 4: Does the patient need physical assistance - for example lifting or trunk support from one helper - wi th the helper providing less than half of the effort? No. EATING - STEP 5: Does the patient need physical assistance - for example lifting or trunk support from one helper - wi th the helper providing more than half of the effort? Yes. 1. [id number] ADMISSION PERFORMANCE: Substantial/maximal assistance CODE: 02 ORAL HYGIENE: ORAL HYGIENE - STEP 1: Does the patient complete the activity by him/herself with no assistance (physical, verbal/nonverbal cueing, setup/clean-up)? No. ORAL HYGIENE - STEP 2: Does the patient need only setup/clean-up assistance from one helper? No. ORAL HYGIENE - STEP 3: Does the patient need only verbal/nonverbal cueing or touching/steadying/contact guard assistance fro m one helper? No. ORAL HYGIENE - STEP 4: Does the patient need physical assistance - for example lifting or trunk support from one helper - wi th the helper providing less than half of the effort? No. ORAL HYGIENE - STEP 5: Does the patient need physical assistance - for example lifting or trunk support from one helper - wi th the helper providing more than half of the effort? Yes. 1. [id number] ADMISSION PERFORMANCE: Substantial/maximal assistance CODE: 02 TOILETING HYGIENE: TOILETING HYGIENE - STEP 1: Does the patient complete the activity by him/herself with no assistance (physical, verbal/nonverbal cueing, setup/clean-up)? No. TOILETING HYGIENE - STEP 2: Does the patient need only setup/clean-up assistance from one helper? No. TOILETING HYGIENE - STEP 3: Does the patient need only verbal/nonverbal cueing or touching/steadying/contact guard assistance fro m one helper? No. TOILETING HYGIENE - STEP 4: Does the patient need physical assistance - for example lifting or trunk support from one helper - wi th the helper providing less than half of the effort? No. TOILETING HYGIENE - STEP 5: Does the patient need physical assistance - for example lifting or trunk support from one helper - wi th the helper providing more than half of the effort? Yes. 1. [id number] ADMISSION PERFORMANCE: Substantial/maximal assistance CODE: 02 BATHING: Not assessed/no information CODE: - DRESSING - UPPER BODY: Not assessed/no information CODE: - DRESSING - LOWER BODY: Not assessed/no information CODE: - PUTTING ON/TAKING OFF FOOTWEAR: Not assessed/no information CODE: - ROLL LEFT AND RIGHT: ROLL LEFT AND RIGHT - STEP 1: Does the patient complete the activity by him/herself with no assistance (physical, verbal/nonverbal cueing, setup/clean-up)? No. ROLL LEFT AND RIGHT - STEP 2: Does the patient need only setup/clean-up assistance from one helper? No. ROLL LEFT AND RIGHT - STEP 3: Does the patient need only verbal/nonverbal cueing or touching/steadying/contact guard assistance fro m one helper? No. ROLL LEFT AND RIGHT - STEP 4: Does the patient need physical assistance - for example lifting or trunk support from one helper - wi th the helper providing less than half of the effort? No. ROLL LEFT AND RIGHT - STEP 5: Does the patient need physical assistance - for example lifting or trunk support from one helper - wi th the helper providing more than half of the effort? Yes. 1. [id number] ADMISSION PERFORMANCE: Substantial/maximal assistance CODE: 02 SIT TO LYING: SIT TO LYING - STEP 1: Does the patient complete the activity by him/herself with no assistance (physical, verbal/nonverbal cueing, setup/clean-up)? No. SIT TO LYING - STEP 2: Does the patient need only setup/clean-up assistance from one helper? No. SIT TO LYING - STEP 3: Does the patient need only verbal/nonverbal cueing or touching/steadying/contact guard assistance fro m one helper? No. SIT TO LYING - STEP 4: Does the patient need physical assistance - for example lifting or trunk support from one helper - wi th the helper providing less than half of the effort? No. SIT TO LYING - STEP 5: Does the patient need physical assistance - for example lifting or trunk support from one helper - wi th the helper providing more than half of the effort? No. SIT TO LYING - STEP 6: Does the helper provide all of the effort? OR Is the assistance of two or more helpers required to co mplete the activity? Yes. 1. [id number] ADMISSION PERFORMANCE: Dependent CODE: 01 LYING TO SITTING: LYING TO SITTING ON SIDE OF BED - STEP 1: Does the patient complete the activity by him/herself with no assistance (physical, verbal/nonverbal cueing, setup/clean-up)? No. LYING TO SITTING ON SIDE OF BED - STEP 2: Does the patient need only setup/clean-up assistance from one helper? No. LYING TO SITTING ON SIDE OF BED - STEP 3: Does the patient need only verbal/nonverbal cueing or touching/steadying/contact guard assistance fro m one helper? No. LYING TO SITTING ON SIDE OF BED - STEP 4: Does the patient need physical assistance - for example lifting or trunk support from one helper - wi th the helper providing less than half of the effort? No. LYING TO SITTING ON SIDE OF BED - STEP 5: Does the patient need physical assistance - for example lifting or trunk support from one helper - wi th the helper providing more than half of the effort? No. LYING TO SITTING ON SIDE OF BED - STEP 6: Does the helper provide all of the effort? OR Is the assistance of two or more helpers required to co mplete the activity? Yes. 1. [id number] ADMISSION PERFORMANCE: Dependent CODE: 01 SIT TO STAND: Not assessed/no information CODE: - TRANSFERS: BED, CHAIR: CHAIR/[id number] TRANSFER - STEP 1: Does the patient complete the activity by him/herself with no assistance (physical, verbal/nonverbal cueing, setup/clean-up)? No. CHAIR/[id number] TRANSFER - STEP 2: Does the patient need only setup/clean-up assistance from one helper? No. CHAIR/[id number] TRANSFER - STEP 3: Does the patient need only verbal/nonverbal cueing or touching/steadying/contact guard assistance fro m one helper? No. CHAIR/[id number] TRANSFER - STEP 4: Does the patient need physical assistance - for example lifting or trunk support from one helper - wi th the helper providing less than half of the effort? No. CHAIR/[id number] TRANSFER - STEP 5: Does the patient need physical assistance - for example lifting or trunk support from one helper - wi th the helper providing more than half of the effort? No. CHAIR/[id number] TRANSFER - STEP 6: Does the helper provide all of the effort? OR Is the assistance of two or more helpers required to co mplete the activity? Yes. 1. [id number] ADMISSION PERFORMANCE: Dependent CODE: 01 TRANSFER TOILET: Not assessed/no information CODE: - TRANSFERS: CAR: Not assessed/no information CODE: - WALK 10 FEET: Not assessed/no information CODE: - 1 STEP (CURB): Not assessed/no information CODE: - PICKING UP OBJECT: Not assessed/no information CODE: - DOES THE PATIENT USE A WHEELCHAIR/SCOOTER? CODE: EXPR WHEEL 50 FEET WITH TWO TURNS: Not assessed/no information CODE: - INDICATE THE TYPE OF WHEELCHAIR/SCOOTER USED: CODE: EXPR WHEEL 150 FEET: Not assessed/no information CODE: - INDICATE THE TYPE OF WHEELCHAIR/SCOOTER USED: CODE: EXPR BLADDER AND BOWEL: H350. BLADDER CONTINENCE (3-DAY ASSESSMENT PERIOD): Always incontinent CODE: 4 H400. BOWEL CONTINENCE (3-DAY ASSESSMENT PERIOD): Always incontinent (no episodes of continent bowel movements) CODE: 3 SIGNATURE PANEL: The following modified sections: 1. [id number] Admission Performance, 1. [id number] Admission Performance, 1. [id number] Admission Performance, 1. [id number] Admission Performance, 1. [id number] Admission Performance, 1. [id number] Admission Performance, 1. [id number] Admission Performance, Code, H350. Bladder Continence ( 3-day assessment period), H350. Bladder Continence (3-day assessment period), H400. Bowel Continence (3-day assessment period), 1. [id number] Admission Performance were [electronically] signed by Clarence pérez on TueAug 20 2019 10:10:17 GMT-0600 (Central Standard Time)
--- NOTE | 2019-08-20 13:15 | FAST ---
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 Harmeet Byers M.D. 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 EATING: Not assessed/no information CODE: - ORAL HYGIENE: Patient refused CODE: 07 TOILETING HYGIENE: TOILETING HYGIENE - STEP 1: Does the patient complete the activity by him/herself with no assistance (physical, verbal/nonverbal cueing, setup/clean-up)? No. TOILETING HYGIENE - STEP 2: Does the patient need only setup/clean-up assistance from one helper? No. TOILETING HYGIENE - STEP 3: Does the patient need only verbal/nonverbal cueing or touching/steadying/contact guard assistance fro m one helper? No. TOILETING HYGIENE - STEP 4: Does the patient need physical assistance - for example lifting or trunk support from one helper - wi th the helper providing less than half of the effort? No. TOILETING HYGIENE - STEP 5: Does the patient need physical assistance - for example lifting or trunk support from one helper - wi th the helper providing more than half of the effort? No. TOILETING HYGIENE - STEP 6: Does the helper provide all of the effort? OR Is the assistance of two or more helpers required to co mplete the activity? Yes. 1. [id number] ADMISSION PERFORMANCE: Dependent CODE: 01 BATHING: SHOWER/BATHE SELF - STEP 1: Does the patient complete the activity by him/herself with no assistance (physical, verbal/nonverbal cueing, setup/clean-up)? No. SHOWER/BATHE SELF - STEP 2: Does the patient need only setup/clean-up assistance from one helper? No. SHOWER/BATHE SELF - STEP 3: Does the patient need only verbal/nonverbal cueing or touching/steadying/contact guard assistance fro m one helper? No. SHOWER/BATHE SELF - STEP 4: Does the patient need physical assistance - for example lifting or trunk support from one helper - wi th the helper providing less than half of the effort? No. SHOWER/BATHE SELF - STEP 5: Does the patient need physical assistance - for example lifting or trunk support from one helper - wi th the helper providing more than half of the effort? No. SHOWER/BATHE SELF - STEP 6: Does the helper provide all of the effort? OR Is the assistance of two or more helpers required to co mplete the activity? Yes. 1. [id number] ADMISSION PERFORMANCE: Dependent CODE: 01 DRESSING - UPPER BODY: DRESSING - UPPER BODY - STEP 1: Does the patient complete the activity by him/herself with no assistance (physical, verbal/nonverbal cueing, setup/clean-up)? No. DRESSING - UPPER BODY - STEP 2: Does the patient need only setup/clean-up assistance from one helper? No. DRESSING - UPPER BODY - STEP 3: Does the patient need only verbal/nonverbal cueing or touching/steadying/contact guard assistance fro m one helper? No. DRESSING - UPPER BODY - STEP 4: Does the patient need physical assistance - for example lifting or trunk support from one helper - wi th the helper providing less than half of the effort? No. DRESSING - UPPER BODY - STEP 5: Does the patient need physical assistance - for example lifting or trunk support from one helper - wi th the helper providing more than half of the effort? Yes. 1. [id number] ADMISSION PERFORMANCE: Substantial/maximal assistance CODE: 02 DRESSING - LOWER BODY: DRESSING - LOWER BODY - STEP 1: Does the patient complete the activity by him/herself with no assistance (physical, verbal/nonverbal cueing, setup/clean-up)? No. DRESSING - LOWER BODY - STEP 2: Does the patient need only setup/clean-up assistance from one helper? No. DRESSING - LOWER BODY - STEP 3: Does the patient need only verbal/nonverbal cueing or touching/steadying/contact guard assistance fro m one helper? No. DRESSING - LOWER BODY - STEP 4: Does the patient need physical assistance - for example lifting or trunk support from one helper - wi th the helper providing less than half of the effort? No. DRESSING - LOWER BODY - STEP 5: Does the patient need physical assistance - for example lifting or trunk support from one helper - wi th the helper providing more than half of the effort? No. DRESSING - LOWER BODY - STEP 6: Does the helper provide all of the effort? OR Is the assistance of two or more helpers required to co mplete the activity? Yes. 1. [id number] ADMISSION PERFORMANCE: Dependent CODE: 01 PUTTING ON/TAKING OFF FOOTWEAR: FOOTWEAR - STEP 1: Does the patient complete the activity by him/herself with no assistance (physical, verbal/nonverbal cueing, setup/clean-up)? No. FOOTWEAR - STEP 2: Does the patient need only setup/clean-up assistance from one helper? No. FOOTWEAR - STEP 3: Does the patient need only verbal/nonverbal cueing or touching/steadying/contact guard assistance fro m one helper? No. FOOTWEAR - STEP 4: Does the patient need physical assistance - for example lifting or trunk support from one helper - wi th the helper providing less than half of the effort? No. FOOTWEAR - STEP 5: Does the patient need physical assistance - for example lifting or trunk support from one helper - wi th the helper providing more than half of the effort? No. FOOTWEAR - STEP 6: Does the helper provide all of the effort? OR Is the assistance of two or more helpers required to co mplete the activity? Yes. 1. [id number] ADMISSION PERFORMANCE: Dependent CODE: 01 DOES THE PATIENT USE A WHEELCHAIR/SCOOTER? CODE: EXPR INDICATE THE TYPE OF WHEELCHAIR/SCOOTER USED: CODE: EXPR INDICATE THE TYPE OF WHEELCHAIR/SCOOTER USED: CODE: EXPR BLADDER AND BOWEL: CODE: EXPR CODE: EXPR SIGNATURE PANEL: The following modified sections: 1. [id number] Admission Performance, 1. [id number] Admission Performance, 1. [id number] Admission Performance, 1. [id number] Admission Performance, 1. [id number] Admission Performance were [electronically] signed by Lisa Goel OT on TueAug 20 2019 13:14:50 GMT-0600 ([facility] tra Standard Time)
--- NOTE | 2019-08-20 14:08 | P.PN ---
Subjective Date of Service: 08/20/19 Chief Complaint: I cannot do the exercises Subjective: Other (Mr. Bogsg is admitted to acute in patient rehab with a left MCA CVA and right arm and leg more than face weakness and numbness. Today he is lying in bed and not wanting to participate in any therapy. He also refused to take part in therapy yesterday and Tuesday. He was admitted with Hgb of 7.2 and hemodynamically stable. After 2 units of PRBCs his Hgb improved to 9 on 08-17. His therapy was held on the first day. However, over the next three days he refused to participate with any therapy. Due to his stroke, he is unable to lift his right arm and leg off the bed. However, he was able to hold his cell phone to his ear with his left hand but when asked to lift his left arm during therapy he refused to use the left arm. He also refuses to open his eyes to command despite being able to open his eyes and look around spontaneously. Since he is not participating in any therapy for three days he will be discharged to SNF for a lower level of care. His medications will be continued.) Physical Examination - Vital Signs Temperature: 97.0 F Blood Pressure: 144/75 Pulse: 71 Respirations: 18 Pulse Ox (%): 97
[2019-08-20 14:35] LABS: Basophils % 0.7 % (0-1.3); Hematocrit 27.8 % (39.6-49.0); Lymphocytes % 11.5 % (15.3-44.8); MPV 8.1 fL (7.6-11.3); RBC Red Blood Cell Count 2.86 M/uL (4.33-5.43)
--- NOTE | 2019-08-20 17:59 | R.PN ---
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 SUBJECTIVE: Pt denied any Shortness of Breath. Pt denied any depression. He was given 2 units of PRBCs due to severe anemia on admission. His repeat Hgb is now 9.5. He is ref using to participate with physical and occupational therapy since his admission, even to use his stro ng left side. He does not want to open his eyes or follow any instructions to use his left arm. Howev er, he uses his left arm well when holding his phone. He will be discharged to SNF in the AM. VITAL SIGNS Temperature: 97.4 F SBP/DBP: 120/70 Pulse: 54 Resp: 16 MEDICATION ALLERGIES: No Known Drug Allergies (NKDA) ENVIRONMENTAL ALLERGIES: None Known - Substance Allergies None Known - Other Allergies None Known NURSING: - Shower allowing shower - Bladder care per protocol - Skin care per protocol PRECAUTIONS: - Weight Bearing Precaution WBAT right LE ACTIVITIES OOB only with supervision THERAPIES: - Occupational Therapy Cognitive Retraining. Visual Perceptual Training. - Dietary and Nutrition Adequate Nutrition. Nutritional Education. Nutritional Supplements. - Speech Therapy Cognitive Training. Expressive Language Skills. Memory Strategies. Receptive Language Skills. Speech Intelligibility Training. PHYSICAL EXAM - Gen Alert and awake Lying in bed No apparent distress Oriented to: person, time, and place - Skin No skin breakdown. Normacephalic - Eyes No abnormalities - ENMT No abnormalities - Neck No abnormalities - CVS RRR - Resp Clear to auscultation - Abd Soft - GI Non distended Deferred - No abnormalities - Ext No significant edema. - MSK 4+/5 weakness in right upper and lower extremities - Neuro 4/5 strength right upper and lower extremities. - Psych No abnormalities ASSESSMENT: Pt. is a 74 yo Right-handed white male.On 08/05/[address] [facility] with sudden on set of right-side weakness.On 08/05/2019 he was admitted to [facility] with diagnosis Acute Isc hemic Infract left posterior limb of internal capsule.His impairment category is Stroke 01 - Right B santos (Left Brain) (01.2).Pre-morbidly, Pt. was independent/mod-I in Locomotion, Balance, Social Cognit ion, Transfers Control, Self-Care, and Endurance; and he had good Locomotion, Balance, Social Cogniti on, Transfers Control, Sphincter Control, Self-Care, Endurance, Safety Awareness, and Communication.C urrently, he has deficits of Locomotion, Safety Awareness, Balance, Social Cognition, Transfers Contr ol, Self-Care, Communication, and Endurance.Pt. is now referred to [facility] for acute in-patient rehabilitation in order to maximize patient's functional independence in activit ies of daily living, strength, ROM, and mobility.- Rehab Goal Patient has realistic goal of being discharged at assistance level 6-Vi to reside at Home with Fam amena/Relatives. MDM/PLAN: - Physical Therapy Gait dysfunction - to improve, our physical therapists will perform initial evaluation of pt's statu s upon admission and devise an individualized program for Gait Training, and Wheel Chair mobility Inability to transfer - to improve, our physical therapists will perform initial evaluation of pt's status upon admission and devise an individualized program for Bed mobility Need for home safety evaluation - to improve, our physical therapists will perform initial evaluatio n of pt's status upon admission and devise an individualized program for Home Evaluation Need in caregiver upon discharge - to improve, our physical therapists will perform initial evaluati on of pt's status upon admission and devise an individualized program for Caregiver Training Edema - to improve, our physical therapists will perform initial evaluation of pt's status upon admis garret and devise an individualized program for Elevation Training, and Lymphedema Therapy New precaution - to improve, our physical therapists will perform initial evaluation of pt's status upon admission and devise an individualized program for Patient precaution education Poor balance - to improve, our physical therapists will perform initial evaluation of pt's status up on admission and devise an individualized program for Balance Training Poor endurance - to improve, our physical therapists will perform initial evaluation of pt's status upon admission and devise an individualized program for Endurance Training Weakness - to improve, our physical therapists will perform initial evaluation of pt's status upon a dmission and devise an individualized program for Aquatic Therapy, Neuromuscular Reeducation, and Str engthening Achieving independence - to improve, our physical therapists will perform initial evaluation of pt's status upon admission and devise an individualized program for Community Reintegration Activities - Occupational Therapy ADL deficits - to improve, our occupation therapists will perform initial evaluation of pt's status upon admission and devise an individualized program for Bathing, Bed mobility, Community Reintegratio n, Cooking, Dressing, Eating, Fine Motor Skills, Grooming, Homemaking, Kitchen Mobility, Laundry, Pat ient Education, Safety Awareness, Splinting - Positioning, Transfers(Toilet, Tub, Shower), and Wheel Chair Management Cognitive deficits - to improve, our occupation therapists will perform initial evaluation of pt's s tatus upon admission and devise an individualized program for Cognition - orientation Need for home care liaison - to improve, our occupation therapists will perform initial evaluation of pt's status upon admission and devise an individualized program for Caregiver Training Weakness - to improve, our occupation therapists will perform initial evaluation of pt's status upon admission and devise an individualized program for Aquatic Therapy, Balance, Endurance, UE ROM, and UE strengthening - Other See attached MAR (Medication Administration Record) - Diet Type Continue Regular - Diet - Liquid Texture Continue Regular - Tube Feed Continue N/A - Bladder care per protocol - Weight Bearing Precaution WBAT right LE - Skin care per protocol - Diet - Solid Texture Continue Regular - Shower allowing shower for Dementia, TBI, Stroke, or others FUNCTIONAL STATUS: UPDATED AT WEEKLY TEAM CONFERENCE - Bladder Same accident frequency: 7-Ind - No accidents in the past 7 days - Bowel Same accident frequency: 7-Ind - No accidents in the past 7 days - Walking Same score based on distance walked: 0(N/A) - Wheelchair Same score based on distance traveled: 0(N/A) FUNCTIONAL STATUS: - Self-Care A. Eating maxA B. Grooming maxA C. Bathing Dep D. Dressing - Upper Dep E. Dressing - Lower Dep F. Toileting maxA - Sphincter Control G. Bladder control Carli H. Bowel control maxA - Transfers Control I. Bed/Chair/Wheelchair Dep J. Toilet Dep K. Tub/Shower Dep - Locomotion L. Walk/Wheelchair (C) maxA M. Stairs ADNO - Communication N. Comprehension (B) modA O. Expression (B) sup - Social Cognition P. Social Interaction Carli Q. Problem Solving modA R. Memory Carli - Endurance Good - Balance Good - Safety Awareness Good QI SCORES: - Self-Care A. Eating 03-Partial/moderate assistance B. Oral hygiene 03-Partial/moderate assistance C. Toileting hygiene 03-Partial/moderate assistance E. Shower/bathe self 03-Partial/moderate assistance F. Upper body dressing 03-Partial/moderate assistance G. Lower body dressing 02-Substantial/maximal assistance H. Putting on/taking off footwear 02-Substantial/maximal assistance - Mobility A. Roll left and right 03-Partial/moderate assistance B. Sit to lying 03-Partial/moderate assistance C. Lying to sitting on side of bed 02-Substantial/maximal assistance D. Sit to stand 02-Substantial/maximal assistance E. Chair/[id number] transfer 02-Substantial/maximal assistance F. Toilet transfer 02-Substantial/maximal assistance G. Car transfer 88-Not attempted due to medical condition or safety concerns I. Walk 10 feet 88-Not attempted due to medical condition or safety concerns J. Walk 50 feet with two turns 88-Not attempted due to medical condition or safety concerns K. Walk 150 feet 88-Not attempted due to medical condition or safety concerns L. Walking 10 feet on uneven surfaces 88-Not attempted due to medical condition or safety concerns M. 1 step (curb) 88-Not attempted due to medical condition or safety concerns N. 4 steps 88-Not attempted due to medical condition or safety concerns O. 12 steps 88-Not attempted due to medical condition or safety concerns P. Picking up object 88-Not attempted due to medical condition or safety concerns R. Wheel 50 feet with two turns 88-Not attempted due to medical condition or safety concerns S. Wheel 150 feet 88-Not attempted due to medical condition or safety concerns - Bladder and Bowel Bladder continence 0-Always continent Bowel continence 0-Always continent - Endurance Poor - Balance Poor - Safety Awareness Fair CURRENT FUNC. DEFICITS: Self-Care, Mobility, Endurance, Balance, and Safety Awareness SIGNATURE PANEL: (CREDIT SPECIALIST)
[2019-08-20] MEDS: ATORVASTATIN 80 MG TAB PO SCH (19:46)
[2019-08-20] MEDS: DOCUSATE NA/SENNA CONC 1 TAB PO SCH (19:47)
[2019-08-21] MEDS: GABAPENTIN 300 MG CAP PO SCH ×2 (00:35→12:25)
[2019-08-21 06:52] VITALS: BP 152/76; TEMP 97.9
[2019-08-21] MEDS: LEVOTHYROXINE SOD 0.112 MG TAB PO SCH (07:34)
[2019-08-21] MEDS: PROMOD 30 ML DOSE PO SCH (08:00)
[2019-08-21] MEDS: FERROUS SULFATE 325 MG TAB PO SCH (10:00)
[2019-08-21] MEDS: FE SULF/FA/VIT B COMP & C TAB PO SCH (10:00)
[2019-08-21] MEDS: CRANBERRY FRUIT EXTRACT 200 MG CAP PO SCH (10:00)
[2019-08-21] MEDS: DULOXETINE 20 MG CAP PO SCH (10:00)
[2019-08-21] MEDS: LIDOCAINE 4% PATCH TOP SCH (10:00)
[2019-08-21] MEDS: CLOPIDOGREL 75 MG TABLET PO SCH (10:00)
[2019-08-21] MEDS: ASPIRIN 81 MG CHEWABLE TABLET PO SCH (10:00)
[2019-08-21] MEDS: NICOTINE 14 MG/PAT TD SCH (12:24)
== END 2019-08-21 14:15 | disposition home or self-care (01) | DRG 57 ==
LOC: 5TH 08-16 22:46
PROVIDERS: ADMIT Psychiatry & Neurology Neurology with Special Qualifications in Child Neurology; ATTEND Psychiatry & Neurology Neurology with Special Qualifications in Child Neurology
DX: I69.351 Hemiplegia and hemiparesis following cerebral infarction affecting right dominant side (principal); M75.101 Unspecified rotator cuff tear or rupture of right shoulder, not specified as traumatic; E03.9 Hypothyroidism, unspecified; I12.9 Hypertensive chronic kidney disease with stage 1 through stage 4 chronic kidney disease, or unspecified chronic kidney disease; N18.3 Chronic kidney disease, stage 3 (moderate); I25.10 Atherosclerotic heart disease of native coronary artery without angina pectoris; M48.061 Spinal stenosis, lumbar region without neurogenic claudication
CPT/HCPCS: 36415; 80048; 81001; 82040; 83735; 84134; 85014; 85018; 85025; 86850; 86900; 86901; 87086; 87088; 92523; 97110; 97116; 97127; 97161; 97167; 97530; 97542; J7030; P9016